=== PATIENT | male | born 1995 | race Caucasian/White ===

== ENCOUNTER → 2017-01-23 | Outpatient (CLI) | payer OTHER ==
--- NOTE | 2017-01-23 08:22 | MR ---
EXAMINATION TYPE: MR knee LT wo con DATE OF EXAM: 01/23/2017 COMPARISON: NONE HISTORY: Left Knee Pain, ACL Tear, MMT TECHNIQUE: Multiplanar, multisequence imaging of the left knee is performed without IV contrast. FINDINGS: MEDIAL MENISCUS: Grade 3 abnormal signal with findings suspicious for bucket-handle tear. LATERAL MENISCUS: Intrasubstance signal posterior horn lateral meniscus suggestive of myxoid degenera tion. CRUCIATE LIGAMENTS: Slight ill-definition of the posterior fibers of the proximal ACL. No through thi ckness tear. COLLATERAL LIGAMENTS: The medial collateral ligament and lateral collateral ligament complex are inta ct and unremarkable. EXTENSOR MECHANISM: Visualized quadriceps and patellar tendons are intact. EFFUSION: No significant suprapatellar joint effusion. POPLITEAL CYST: No popliteal/coats cyst. TRICOMPARTMENT SPACES: Joint spaces preserved. Cartilage intact. There is a small amount of fluid wit hin the suprapatellar bursa. BONE MARROW SIGNAL: No focal abnormal marrow signal is appreciated. OTHER: 1.8 cm area of fluid signal along the posterior margin of the proximal tibial-fibular joint m ay represent an area of fluid accumulation or ganglion cyst. IMPRESSION: 1. Findings compatible with posterior horn medial meniscal tear with findings suggestive of a bucket- handle tear. 2. Findings involving the posterior horn lateral meniscus more typical of myxoid degeneration. 3. ACL strain with findings suspicious for partial tear involving the posterior fibers. No through t hickness tear or complete tear.
== END | disposition home or self-care (01) ==
LOC: RADMRIMAIN 06:03
PROVIDERS: ATTEND Orthopaedic Surgery
DX: S83.282A Other tear of lateral meniscus, current injury, left knee, initial encounter (principal); S83.512A Sprain of anterior cruciate ligament of left knee, initial encounter

== ENCOUNTER → 2017-02-01 | Outpatient (CLI) | payer OTHER ==
[2017-02-01 10:47] LABS: EKG EKG PERFORMED
[2017-02-01 11:12] LABS: Basophils % (A) 0 %; CH 31.6; CHCM 34.6; Eosinophils # (A) 0.1 k/uL (0-0.7); Eosinophils % (A) 2 %; HCT 48.1 % (39.0-53.0); HDW 2.53; HGB 16.8 gm/dL (13.0-17.5); Luc # (Auto) 0.17; Luc % (Auto) 2; Lymphocytes # (A) 1.9 k/uL (1.0-4.8); Lymphocytes % (A) 25 %; MCH 32.2 pg (25.0-35.0); MCV 91.8 fL (80.0-100.0); Mean Platelet Volume 7.3; Monocytes # (A) 0.5 k/uL (0-1.0); Monocytes % (A) 6 %; Neutrophils # (A) 5.1 k/uL (1.3-7.7); Neutrophils % (A) 65 %; RBC 5.24 m/uL (4.30-5.90); RDW 12.2 % (11.5-15.5); WBC 7.8 k/uL (3.8-10.6)
[2017-02-01 11:19] LABS: Anion Gap 9 mmol/L; Blood Urea Nitrogen 22 mg/dL (9-20); Calcium 9.9 mg/dL (8.4-10.2); Carbon Dioxide 24 mmol/L (22-30); Chloride 105 mmol/L (98-107); Glucose 105 mg/dL (74-99); Non-African American GFR(MDRD) >60 (>60 ml/min/1.73 sqM); Potassium 4.3 mmol/L (3.5-5.1); Sodium 138 mmol/L (137-145)
== END | disposition home or self-care (01) ==
LOC: LABWHC1 10:39
PROVIDERS: ATTEND Orthopaedic Surgery
DX: Z01.810 Encounter for preprocedural cardiovascular examination (principal); I49.49 Other premature depolarization; D64.9 Anemia, unspecified; Z01.812 Encounter for preprocedural laboratory examination
CPT/HCPCS: 36415; 80048; 85025; 93005

== ENCOUNTER → 2017-08-22 | Outpatient (CLI) | payer OTHER ==
--- NOTE | 2017-08-22 20:47 | MR ---
EXAMINATION TYPE: MR shoulder RT wo con DATE OF EXAM: 08/22/2017 COMPARISON: Radiographs 10/27/2014 HISTORY: 22-year-old male Cervicalgia/ rt shoulder pain TECHNIQUE: Multiplanar, multisequence imaging of the right shoulder is performed without contrast. FINDINGS: Long head biceps tendon appears intact and appropriately situated along the bicipital. There is some heterogeneous signal involving the subscapularis tendon and suggestion of some partial articular sided tearing of the middle to inferior third fibers. The majority of the subscapularis ten don appears intact. AC joint is intact. The supraspinatus tendon is intact. There is mild intrasubstance change within the posterior infraspinatus tendon fibers characterized by focal increased signal at the footprint, sagittal T2 FS image 22. No atrophy of the rotator cuff musculature. Of note, there is mild muscular edema of the teres minor. No mass lesion seen within the quadrilateral space. There is some linear signal seen undercutting the chondral labral junction of the posterior superior glenoid labrum probably representing a sublabral sulcus. No para labral cyst. No glenohumeral joint effusion. Articular cartilage is maintained. No Hill-Sachs deformity or os acromiale. No suspicious bone marrow replacement. IMPRESSION: 1. Subscapularis tendinosis. There seems to be minimal articular sided fraying of the middle to infer ior third fibers. The majority of the subscapularis tendon remains intact. 2. Some intrasubstance change/tendinosis of the posterior infraspinatus tendon fibers. No high-grade partial or full-thickness rotator cuff tear. 3. Muscular edema involving the teres minor. Findings can be seen in the setting of quadrilateral spa ce syndrome. No significant muscle atrophy. Clinically correlate. 4. Findings suspected to represent a superior posterior sublabral sulcus rather than a SLAP tear. Cor relate with physical exam findings. If concern for labral pathology, MR arthrogram can be performed.
--- NOTE | 2017-08-22 20:53 | MR ---
EXAMINATION TYPE: MR cervical spine wo con DATE OF EXAM: 08/22/2017 COMPARISON: NONE HISTORY: 22-year-old male Cervicalgia/right shoulder pain TECHNIQUE: Multiplanar, multisequence images of the cervical spine were acquired. 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 No predental space widening or prevertebral soft tissue swelling. Preserved alignment of the cervical spine. Minimal posterior disc bulging and C3-C4 and C4-C5 and scattered mild facet degenerative change throu ghout. These changes do not result in any significant spinal canal stenosis. Changes result in minimal left-sided neuroforaminal narrowing at C3-C4 and on the right at C4-C5. Normal course, caliber, and signal intensity of the cervical cord. Prominence to the bilateral palatine tonsils. No prevertebral or paravertebral soft tissue abnormalit y seen. IMPRESSION: 1. 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 2. Very mild posterior disc bulging at C3-C4 and C4-C5. No spinal canal stenosis. 3. Minimal left-sided neural foraminal narrowing at C3-C4 and on the right at C4-C5. No high-grade fo raminal compromise.
== END | disposition home or self-care (01) ==
LOC: RADMRIMAIN 19:37
PROVIDERS: ATTEND Internal Medicine
DX: M75.81 Other shoulder lesions, right shoulder (principal); M50.320 Other cervical disc degeneration, mid-cervical region, unspecified level
CPT/HCPCS: 72141

== ENCOUNTER 2017-11-02 23:11 | Emergency (ER) | payer OTHER ==
[2017-11-02 23:18] VITALS: RESP 16
[2017-11-02] MEDS ORDERED: ORPHENADRINE 30 MG/ML 2 ML VIAL IM STA (23:45)
[2017-11-02] MEDS ORDERED: KETOROLAC 30 MG/ML 1 ML VIAL IM STA (23:45)
--- NOTE | 2017-11-02 23:47 | ED ---
Back Pain HPI - General Chief Complaint: Back Pain/Injury Stated Complaint: neck pain Time Seen by Provider: 11/02/17 23:36 Source: patient Limitations: no limitations - History of Present Illness Initial Comments: 22-year-old male patient with past medical history significant for Chiari malformation and herniated cervical disc presents to the emergency department today for complaints of neck pain and headache. 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 Patient states that the left side of his neck hurts worse than the right. He denies any pain radiation down his arms. He denies any numbness or tingling in his upper extremities. He denies any fevers, chills, blurred vision, or double vision. Denies any nausea or vomiting. Patient denies any recent rash, shortness breath , chest pain, abdominal pain, diarrhea, constipation, back pain, dizziness, weakness, hematuria, dysuria, urinary urgency, urinary frequency, or any other complaints. - Related Data Home Medications Medication Instructions Recorded Confirmed Albuterol Inhaler [Ventolin Hfa 1 - 2 puff INHALATION RT-Q6H PRN 11/02/17 Inhaler] Albuterol Nebulized [Ventolin 2.5 mg INHALATION RT-Q6H PRN 11/02/17 11/02/17 Nebulized] Budesonide/Formoterol Fumarate 2 puff INHALATION RT-BID 11/02/17 11/02/17 [Symbicort 160-4.5 Mcg Inhaler] Cyclobenzaprine [Flexeril] 10 mg PO HS 11/02/17 11/02/17 Diazepam [Valium] 5 mg PO BID PRN 11/02/17 11/02/17 traZODone HCL [Desyrel] 100 mg PO HS 11/02/17 11/02/17 Previous Rx's Medication Instructions Recorded Cyclobenzaprine [Flexeril] 10 mg PO TID #15 tab 11/02/17 Ibuprofen [Motrin] 600 mg PO Q8HR PRN #30 tab 11/02/17 Allergies Allergy/AdvReac Type Severity Reaction Status Date / Time acetaminophen [From [place]] AdvReac Nausea & Verified 11/02/17 23:23 Vomiting hydrocodone bitartrate AdvReac Nausea & Verified 11/02/17 23:23 [From [place]] Vomiting Review of Systems ROS Statement: Those systems with pertinent positive or pertinent negative responses have been documented in the HPI. ROS Other: All systems not noted in ROS Statement are negative. Past Medical History Past Medical History: Asthma History of Any Multi-Drug Resistant Organisms: None Reported Past Surgical History: No Surgical Hx Reported Past Psychological History: No Psychological Hx Reported Smoking Status: Current every day smoker Past Alcohol Use History: None Reported Past Drug Use History: None Reported General Exam Limitations: no limitations General appearance: alert, in no apparent distress, other (This is a well- developed, well-nourished adult male patient in no acute distress. Vital signs upon presentation are temperature 98.2F, pulse 61, respirations 16, blood pressure 136/82, pulse ox 98% on room air.) Eye exam: Present: normal appearance, PERRL, EOMI. Absent: scleral icterus, conjunctival injection, periorbital swelling ENT exam: Present: normal exam, normal oropharynx, mucous membranes moist Neck exam: Present: normal inspection, full ROM. Absent: tenderness, meningismus, lymphadenopathy Respiratory exam: Present: normal lung sounds bilaterally. Absent: respiratory distress, wheezes, rales, rhonchi, stridor Cardiovascular Exam: Present: regular rate, normal rhythm, normal heart sounds. Absent: systolic murmur, diastolic murmur, rubs, gallop, clicks GI/Abdominal exam: Present: soft, normal bowel sounds. Absent: distended, tenderness, guarding, rebound, rigid Neurological exam: Present: alert, oriented X3, CN II-XII intact Psychiatric exam: Present: normal affect, normal mood Skin exam: Present: warm, dry, intact, normal color. Absent: rash Course Vital Signs 11/02/17 11/03/17 23:13 00:19 Temperature 98.2 F 97.3 F L Pulse Rate 61 54 L Respiratory 16 16 Rate Blood Pressure 136/82 143/68 O2 Sat by Pulse 98 98 Oximetry Medical Decision Making - Medical Decision Making 22-year-old male patient presented to the emergency department today for complaints of left-sided neck pain and headache after starting a new job today. Physical examination is unremarkable. Patient good upper extremity strength. There is no midline neck tenderness. No injury to the neck. Patient does have known herniated disc. We'll treat his pain with anti-inflammatories and muscle relaxers. He is instructed to follow-up with his primary care physician for recheck in 1-2 days. Return parameters discussed in detail. He verbalizes understanding and agrees with this plan. Disposition Clinical Impression: Neck pain Disposition: HOME SELF-CARE Condition: Good Instructions: Neck Pain (ED) Additional Instructions: Apply warm moist heat to the neck. Take medications as directed. Follow-up with your primary care physician as well as her neurologist for further evaluation. Return here immediately for any new, worsening, or concerning symptoms. Prescriptions: Cyclobenzaprine [Flexeril] 10 mg PO TID #15 tab Ibuprofen [Motrin] 600 mg PO Q8HR PRN #30 tab PRN Reason: Pain Is patient prescribed a controlled substance at d/c from ED?: No Referrals: Benji Vargas MD [Primary Care Provider] - 1-2 days Time of Disposition: 23:47
[2017-11-03 00:21] VITALS: BP 143/68; PULSE 54; TEMP 97.3
== END 2017-11-03 00:16 | disposition home or self-care (01) ==
LOC: EC 23:11
DX: M50.10 Cervical disc disorder with radiculopathy, unspecified cervical region (principal); R51 Headache; J45.909 Unspecified asthma, uncomplicated; F17.200 Nicotine dependence, unspecified, uncomplicated; Z79.51 Long term (current) use of inhaled steroids; Z79.899 Other long term (current) drug therapy; Z88.5 Allergy status to narcotic agent; Z88.8 Allergy status to other drugs, medicaments and biological substances; X50.0XXA Overexertion from strenuous movement or load, initial encounter
CPT/HCPCS: 99283; 96372 ×2; J2360; J1885

== ENCOUNTER → 2017-12-14 | Outpatient (CLI) | payer OTHER ==
--- NOTE | 2017-12-14 22:14 | MR ---
EXAMINATION TYPE: MR lumbar spine wo con DATE OF EXAM: 12/14/2017 COMPARISON: Lumbar spine x-ray April 19, 2011 HISTORY: Low back pain for 4 years per patient going into left thigh. TECHNIQUE: Multiplanar, multisequence imaging of the lumbar spine is performed without IV contrast. FINDINGS: Sagittal images of the lumbar spine show vertebral body heights and alignment to appear sat isfactory. There is disc desiccation with mild disc space narrowing at L5-S1 level otherwise the inte rvertebral discs demonstrate normal heights and hydration. Posterior disc herniation is seen L5-S1 le olya with increased posterior signal or annular tear. The conus medullaris is normal in position and s ignal. The bone marrow signal intensity is within normal limits. No significant spurring is seen. Axial images show at T12-L1, L1-L2, L2-L3, L3-L4, and L4-L5 levels all to appear within normal limits . Axial images at the L5-S1 level shows broad-based right paracentral disc protrusion mildly effacing t he anterolateral thecal sac. This appears to encroach near the anterior margin of right S1 nerve on a xial image 2 and sagittal images 8 and 9. Bilateral neural foramina are patent. Paraspinal muscle bulk is maintained. No suspicious retroperitoneal findings are seen. IMPRESSION: Disc herniation L5-S1 level encroaching along the anterior margin of central right S1 ner ve.
== END | disposition home or self-care (01) ==
LOC: RADMRIMAIN 21:36
PROVIDERS: ATTEND Psychiatry & Neurology Neurology
DX: M51.27 Other intervertebral disc displacement, lumbosacral region (principal)
CPT/HCPCS: 72148

== ENCOUNTER → 2018-01-19 | Outpatient (CLI) | payer OTHER ==
--- NOTE | 2018-01-19 10:00 | MR ---
EXAMINATION TYPE: MR brain wo/w con DATE OF EXAM: 01/19/2018 COMPARISON: None HISTORY: Compression of Brain TECHNIQUE: Multiplanar, multisequence images of the brain and brainstem is performed without and with IV contras t, utilizing 7.5 mL intravenous Gadavist . FINDINGS: Diffusion weighted images demonstrate no evidence of a recent infarct or other diffusion ab normality. Changes of diffuse sinusitis noted. Ventricular system compatible with the patient's age with no evidence of midline shift or mass effect . The cerebellar tonsils are low-lying in position extending 7 mm below the foramen magnum. Findings molina ggest posterior tonsillar beaking. Correlate for history of Chiari malformation. Post contrast images demonstrate no abnormal enhancement. The dural venous sinuses appear patent. The visualized globes are intact. There is an area of reduced signal on all sequences within the left parietal white matter should be c orrelated with head CT to assess for calcification. Measures approximately 1 cm. No enhancement. IMPRESSION: 1. Chiari malformation with tonsillar beaking. 2. Severe chronic sinusitis. 3. 1 cm area of low signal on all sequences suggestive of an area of calcification within the left pa rietal white matter which could be confirmed with CT of the brain.
== END | disposition home or self-care (01) ==
LOC: RADMRIMAIN 09:13
PROVIDERS: ATTEND Neurological Surgery
DX: G93.5 Compression of brain (principal); R90.89 Other abnormal findings on diagnostic imaging of central nervous system
CPT/HCPCS: 70553; A9581

== ENCOUNTER 2018-03-02 06:00 | Emergency (ER) | payer OTHER ==
[2018-03-02 06:07] VITALS: BP 114/69; PULSE 78; RESP 20
[2018-03-02 06:40] VITALS: TEMP 100
[2018-03-02] MEDS ORDERED: HYDROmorphone 1 MG/ML 1 ML SYRINGE IVP STA (06:41)
--- NOTE | 2018-03-02 06:43 | ED ---
Neck Injury/Pain HPI - General Chief Complaint: Neck Pain/Injury Stated Complaint: neck pain Time Seen by Provider: 03/02/18 06:36 Mode of arrival: ambulatory Limitations: no limitations - History of Present Illness Initial Comments: This patient is 22-year-old man who presents with the goal of obtaining some pain relief for pain related to recent Chiari malformation surgery. The patient states this was performed at [facility]. He states he called the on-call number and they requested that he come down and be seen to reevaluate. The patient states that he is going to go right down there but he was hoping to have some pain relief since it is a long ride there. Surgery was on February 23. He had been doing fairly well until yesterday and the pain started increasing. He tried taking the prescribed oxycodone but states that that's not providing much relief. He is not having any neurologic symptoms. He has noticed low-grade fever this morning. MD Complaint: neck pain -: hour(s) Severity: moderate Quality: aching Consistency: constant Improves With: none Worsens With: none Associated Symptoms: fever - Related Data Home Medications Medication Instructions Recorded Confirmed Albuterol Inhaler [Ventolin Hfa 1 - 2 puff INHALATION RT-Q6H PRN 11/02/17 Inhaler] Albuterol Nebulized [Ventolin 2.5 mg INHALATION RT-Q6H PRN 11/02/17 03/02/18 Nebulized] Budesonide/Formoterol Fumarate 2 puff INHALATION RT-BID 11/02/17 03/02/18 [Symbicort 160-4.5 Mcg Inhaler] Cyclobenzaprine [Flexeril] 10 mg PO HS 11/02/17 03/02/18 Diazepam [Valium] 5 mg PO BID PRN 11/02/17 03/02/18 traZODone HCL [Desyrel] 100 mg PO HS 11/02/17 03/02/18 Previous Rx's Medication Instructions Recorded Cyclobenzaprine [Flexeril] 10 mg PO TID #15 tab 11/02/17 Ibuprofen [Motrin] 600 mg PO Q8HR PRN #30 tab 11/02/17 Allergies Allergy/AdvReac Type Severity Reaction Status Date / Time acetaminophen [From [place]] AdvReac Nausea & Verified 03/02/18 06:07 Vomiting hydrocodone bitartrate AdvReac Nausea & Verified 03/02/18 06:07 [From [place]] Vomiting Review of Systems ROS Statement: Those systems with pertinent positive or pertinent negative responses have been documented in the HPI. ROS Other: All systems not noted in ROS Statement are negative. Constitutional: Reports: fever. Denies: chills ENT: Denies: throat pain Respiratory: Denies: cough, dyspnea Cardiovascular: Denies: chest pain, palpitations Gastrointestinal: Denies: abdominal pain, vomiting Musculoskeletal: Reports: as per HPI Skin: Denies: rash Neurological: Denies: headache Past Medical History Past Medical History: Asthma Additional Past Medical History / Comment(s): chiari malformation History of Any Multi-Drug Resistant Organisms: None Reported Past Surgical History: Orthopedic Surgery Additional Past Surgical History / Comment(s): chiari malformation Past Psychological History: No Psychological Hx Reported Smoking Status: Current every day smoker Past Alcohol Use History: None Reported Past Drug Use History: None Reported General Exam Limitations: no limitations General appearance: alert, in no apparent distress Head exam: Present: atraumatic, normocephalic Eye exam: Present: normal appearance Neck exam: Present: full ROM, other (Inspection of the patient's surgical incision reveals that the sutures are intact. There is no drainage. There is no abnormal erythema or warmth. There does appear to be a small fluid collection possibly small hematoma.). Absent: tenderness, meningismus Course Vital Signs 03/02/18 03/02/18 06:02 06:40 Temperature 99.3 F 100.0 F H Pulse Rate 78 Respiratory 20 Rate Blood Pressure 114/69 O2 Sat by Pulse 98 Oximetry Medical Decision Making - Medical Decision Making Patient is 22-year-old man with postsurgical pain and also found to have low- grade fever here. Discussed that it is mandatory that he follow-up, and the patient states that his his intention to leave here and go directly to [facility] to have reevaluation. Patient was given 1 dose of analgesia and discharged to go directly there. He declined to have transfer arranged, stating that his family is driving him directly there. Disposition Clinical Impression: Post surgical complication Disposition: OTHER INSTITUTION NOT DEFINED Condition: Fair Instructions: Acute Neck Pain (ED) Is patient prescribed a controlled substance at d/c from ED?: No Referrals: Benji Vargas MD [Primary Care Provider] - 1-2 days
== END 2018-03-02 06:55 | disposition other institution (70) ==
LOC: EC 06:00
DX: G97.82 Other postprocedural complications and disorders of nervous system (principal); J45.909 Unspecified asthma, uncomplicated; Z79.51 Long term (current) use of inhaled steroids; Z79.899 Other long term (current) drug therapy; Z88.6 Allergy status to analgesic agent; Z88.5 Allergy status to narcotic agent; Z98.890 Other specified postprocedural states
CPT/HCPCS: 99284; 96374; J1170

== ENCOUNTER → 2018-04-11 | Outpatient (CLI) | payer OTHER ==
--- NOTE | 2018-04-11 22:44 | MR ---
EXAMINATION TYPE: MR brain wo/w con DATE OF EXAM: 04/11/2018 COMPARISON: Prior MRI brain January 19, 2018. HISTORY: CSF Leak, chiari malformation, memory loss, prior MRI on pacs TECHNIQUE: Multiplanar, multisequence images of the brain and brainstem is performed without and with IV contras t, utilizing 7.5 mL intravenous Gadavist . FINDINGS: Diffusion weighted images demonstrate no evidence of a recent infarct or other diffusion ab normality. There is no extra-axial fluid collection or significant white matter signal abnormality. The ventricular system and cisternal spaces are stable in size and appearance perhaps somewhat diffu sely decompressed or small. The brain volume is age appropriate. Area of roughly 1.0 cm low T1 and T 2 signal left parietal periventricular white matter axial image 17 is stable perhaps small area of fo naun encephalomalacia or calcification. Midline structures demonstrate new artifact from posterior decompression but persistent low-lying cer ebellar tonsils measured roughly 7 mm sagittal image 10 below foramen magnum not significant change f rom prior in position. Post contrast images demonstrate no abnormal enhancement. The dural venous sinuses appear patent. Moderate mucosal thickening involving inferior left maxillary sinus remains pr esent. Mild to moderate mucosal thickening involving ethmoid sinuses is again seen. Significant overa ll interval improvement from prior MRI. Globes are intact bilaterally. IMPRESSION: 1. Attempted posterior decompression but persistent inferior descent of cerebellar tonsils despite at tempted surgery. 2. Improving paranasal sinus disease as detailed above.
== END | disposition home or self-care (01) ==
LOC: RADMRIMAIN 21:00
PROVIDERS: ATTEND Neurological Surgery
DX: R83.5 Abnormal microbiological findings in cerebrospinal fluid (principal)
CPT/HCPCS: 70553; A9585

== ENCOUNTER → 2018-12-12 | Outpatient (CLI) | payer OTHER ==
--- NOTE | 2018-12-13 13:48 | MR ---
MRI CERVICAL SPINE and brain: CLINICAL HISTORY: Congenital malformation of nervous system, neck pain and headaches TECHNIQUE: Multiplanar, multisequence imaging of the cervical spine and brain is performed without IV contrast. COMPARISON: Prior MR brain 04/11/2018, MR cervical spine 08/22/2017 FINDINGS: Brain MRI: Exam is stable. There is no restricted diffusion. No hemorrhage or hydrocephalus. Brain si gnal is normal. There are normal vascular flow voids present. Orbits are symmetric. Inflammatory rubio ge present within the ethmoid air cells. Maxillary sinuses also, periosteal thickening. Cerebellopont ine angles, corpus callosum, pituitary are normal. Postop changes at the level of the posterior skull base is noted. There is a change in appearance, the posterior dural surface is not seen, there is ce rebrospinal fluid signal present with a somewhat bulging appearance at the level of the decompression , inferior cerebellar has displaced into this inferior outpouching. The cervical and upper thoracic spinal cord is normal in course, caliber, and signal. Vertebral ali gnment is anatomic. The vertebral body and intravertebral disk heights are normal. The bone marrow signal intensity is within normal limits. Axial images show there is no significant focal disk disease, spinal canal stenosis, neural foraminal narrowing, or spinal cord compromise at any cervical level. IMPRESSION: Negative MRI of the cervical spine, findings in the surgical site as described, there is an interval change in the appearance of the surgical bed.
== END | disposition home or self-care (01) ==
LOC: RADMRIMAIN 16:37
PROVIDERS: ATTEND Neurological Surgery
DX: Q07.9 Congenital malformation of nervous system, unspecified (principal); Z98.890 Other specified postprocedural states
CPT/HCPCS: 70551; 72141

== ENCOUNTER → 2019-02-19 | Outpatient (CLI) | payer OTHER ==
--- NOTE | 2019-02-19 09:40 | CT ---
EXAMINATION TYPE: CT brain wo con DATE OF EXAM: 02/19/2019 COMPARISON: 12/12/2018 MRI brain HISTORY: 23-year-old male pre surgery for Chiari malformation TECHNIQUE: Examination was done in axial plane without intravenous contrast. Coronal and sagittal r econstructions performed. CT DLP: 963.6 mGycm Automated exposure control for dose reduction was used. FINDINGS: There is no evidence of acute intracranial hemorrhage, acute ischemic changes, mass, mass-effect, or extra-axial fluid collection. There is no effacement of cerebral sulci or basal subarachnoid cister ns. There is no hydrocephalus. There is no midline shift. Hopson-white matter distinction is preserv ed. There is evidence of prior suboccipital decompression surgery with inferior aspect of the cerebellar hemispheres filling the bulging dura here, similar to that seen on 12/12/2018. Small and of cerebellar tonsillar herniation particularly on the right measuring 6 mm below the dural sac, similar to prior MRI. Moderate mucosal thickening ethmoid air cells and visualized right maxillary sinus. Mastoid air cells well pneumatized. Orbits and globes are intact. IMPRESSION: 1. Prior suboccipital decompression. Redemonstrated inferior aspect of the cerebral hemispheres exten ding into the bulging pouch and with mild 6 mm of left-sided cerebellar tonsillar ectopia below the l evel of the dural pouch, relatively similar to 12/12/2018. 2. No acute intracranial abnormality seen. 3. Moderate chronic ethmoid sinus disease.
== END | disposition home or self-care (01) ==
LOC: RADCTMAIN 08:18
PROVIDERS: ATTEND Neurological Surgery
DX: G93.89 Other specified disorders of brain (principal)
CPT/HCPCS: 70450

== ENCOUNTER → 2019-06-01 | Outpatient (CLI) | payer OTHER ==
--- NOTE | 2019-06-02 22:35 | CT ---
EXAMINATION TYPE: CT brain wo con DATE OF EXAM: 06/01/2019 COMPARISON: CT brain February 19, 2019. MR brain December 12, 2018 and older MRIs back through January 19, 2018.. HISTORY: pre [employer] shunt placement CT DLP: 945.5 mGycm. Automated Exposure Control for Dose Reduction was Utilized. TECHNIQUE: CT scan of the head is performed without contrast. FINDINGS: Persistent central low occipital craniotomy change with now new CSF isointense fluid extend ing posteriorly measuring 3.8 cm transversely by 4.1 cm AP diameter axial image 5 is noted. Possible pseudomeningocele nearly extending to since skin surface. Interval correction of prior low-lying cere bellar tonsils noted. There is no acute intracranial hemorrhage or midline shift identified. The veda tricles and sulci are stable in size. Ventricular system is somewhat slitlike but unchanged back thro [facility] January 19, 2018 Hopson-white matter differentiation is maintained. The globes are intact bilaterally . Mild to moderate mucosal thickening involving bilateral ethmoid sinuses remains present. IMPRESSION: Interval successful surgery of low-lying cerebellar tonsils from most recent CT. 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 No other significant change from most recent CT.
== END | disposition home or self-care (01) ==
LOC: RADCTMAIN 07:09
PROVIDERS: ATTEND Neurological Surgery
DX: G93.5 Compression of brain (principal); Z98.890 Other specified postprocedural states
CPT/HCPCS: 70450

== ENCOUNTER → 2019-06-17 | Outpatient (CLI) | payer OTHER ==
--- NOTE | 2019-06-17 14:59 | XR ---
EXAMINATION TYPE: XR chest 2V DATE OF EXAM: 06/17/2019 COMPARISON: NONE HISTORY: Ventriculoperitoneal shunt malfunction. TECHNIQUE: Frontal and lateral views of the chest are obtained. FINDINGS: Ventriculoperitoneal shunt courses along the anterior chest and abdominal wall subcutaneou s tissues into the abdominal cavity. There is no discontinuity nor calcifications seen. There is no f ocal air space opacity, pleural effusion, or pneumothorax seen. The cardiac silhouette size is withi n normal limits. The osseous structures are intact. IMPRESSION: No acute cardiopulmonary process. No discontinuity no calcifications along the visualize d portions of the ventriculoperitoneal shunt.
--- NOTE | 2019-06-17 15:00 | XR ---
EXAMINATION TYPE: XR abdomen 2V DATE OF EXAM: 06/17/2019 2:43 PM CLINICAL HISTORY: Ventriculoperitoneal shunt malfunction. TECHNIQUE: Single supine KUB image of the abdomen is obtained. COMPARISON: None. FINDINGS: No dilated large or small bowel. Ventriculoperitoneal shunt is seen along the midline and r ight paracentral abdomen coiling in the midline pelvis. No discontinuity or calcifications are seen. Lung bases are well aerated. Osseous structures are intact. IMPRESSION: Ventriculoperitoneal shunt and unremarkable coiling within the pelvis without discontinui ty or calcifications.
--- NOTE | 2019-06-17 15:52 | XR ---
EXAMINATION TYPE: XR skull limited DATE OF EXAM: 06/17/2019 COMPARISON: CT brain dated 06/01/2019 HISTORY: Recent ventriculoperitoneal shunt placement. TECHNIQUE: Frontal and lateral views of the skull were obtained FINDINGS: There is a right parietal approach ventriculoperitoneal shunt that has been placed in the i [facility] from the prior CT of 06/01/2019. There is a radiolucent reservoir. Connector tubing appears un remarkable. No constantin discontinuity or calcifications. Osseous structures are grossly intact with muco elke thickening of the right nasal turbinates incidentally seen. IMPRESSION: No gross discontinuity or calcifications along the course of the right ventriculoperitone al shunt from a parietal approach.
== END | disposition home or self-care (01) ==
LOC: RADXRMAIN 14:09
PROVIDERS: ATTEND Neurological Surgery
DX: G91.9 Hydrocephalus, unspecified (principal); G93.5 Compression of brain; Z98.2 Presence of cerebrospinal fluid drainage device
CPT/HCPCS: 70250; 71046; 74019

== ENCOUNTER → 2020-04-18 | Outpatient (CLI) | payer OTHER ==
--- NOTE | 2020-04-18 09:47 | XR ---
EXAMINATION TYPE: XR hand limited RT DATE OF EXAM: 04/18/2020 CLINICAL HISTORY: Fight injury with pain. TECHNIQUE: Frontal and lateral images of the right hand are obtained. COMPARISON: None. FINDINGS: There is no acute fracture/dislocation evident in the right hand with particular attention to third through fifth fingers at area of clinical concern. The joint spaces in the right hand appea r within normal limits. The overlying soft tissue appears unremarkable. IMPRESSION: There is no acute fracture or dislocation in the right hand.
== END | disposition home or self-care (01) ==
LOC: RADXRMAIN 09:30
PROVIDERS: ATTEND Internal Medicine
DX: M79.641 Pain in right hand (principal)

== ENCOUNTER → 2020-06-02 | Outpatient (CLI) | payer OTHER ==
--- NOTE | 2020-06-02 08:44 | CT ---
EXAMINATION TYPE: CT brain wo con DATE OF EXAM: 06/02/2020 COMPARISON: CT brain June 01, [address] MRI brain December 12, 2018 and older MRIs through 2 018 HISTORY: hydrocephalus, GOMEZ, dizziness, memory loss CT DLP: 945.5 mGycm. Automated Exposure Control for Dose Reduction was Utilized. TECHNIQUE: CT scan of the head is performed without contrast. FINDINGS: Persistent low occipital craniectomy with resolution of the CSF posteriorly extending into the scalp. Fhzz-as-obfvnihb mucosal thickening involving ethmoid sinuses and superior aspect maxillar y sinuses bilaterally remains present. Globes are intact bilaterally. No acute intracranial hemorrhage or midline shift. Hopson-white matter differentiation is maintained. N o right foraminal toby hole and GAS FURNACE INSTALLER shunt catheter terminating near the level of foramen of French. Ve ntricular size is stable from most recent CT. IMPRESSION: New right frontal GAS FURNACE INSTALLER shunt catheter. Ventricular size stable from most recent CT and olde r studies. Interval resolution or successful interval treatment of posterior lower pseudomeningocele.
--- NOTE | 2020-06-02 11:05 | XR ---
EXAMINATION TYPE: XR chest 2V DATE OF EXAM: 06/02/2020 COMPARISON: 06/17/2019 INDICATION: Shunt series history of Chiari malformation TECHNIQUE: Frontal and lateral views of the chest are obtained. FINDINGS: The heart size is normal. The pulmonary vasculature is normal. The lungs are clear. Catheter overlies the mid chest entering from the right and extends out of the [id number] within t he abdomen. IMPRESSION: 1. No acute pulmonary process. 2. Intact catheter transversing the [id number].
--- NOTE | 2020-06-02 11:06 | XR ---
EXAMINATION TYPE: XR skull limited DATE OF EXAM: 06/02/2020 COMPARISON: 06/17/2019 HISTORY: Shunt survey TECHNIQUE: Skull is examined in 2 views FINDINGS: There is a shunt catheter on the right. The visualized connections appear intact. This exte nds out of the [id number] in the right neck IMPRESSION: 1. Shunt catheter as visualized appears intact
--- NOTE | 2020-06-02 11:08 | XR ---
EXAMINATION TYPE: XR abdomen 2V DATE OF EXAM: 06/02/2020 COMPARISON: 06/17/2019 INDICATION: Shunt survey TECHNIQUE: Abdomen is examined in the supine and upright views. FINDINGS: There is a normal bowel gas pattern. Psoas margins are normal. No organomegaly is present. Shunt catheter enters on the right and has its tip in the mid pelvis. This is changing in position fr om the comparison. No suspicious mass effect is evident. IMPRESSION: 1. Unremarkable Abdomen 2. Shunt catheter entering superiorly with the tip within the pelvis appears normal.
== END | disposition home or self-care (01) ==
LOC: RADCTMAIN 08:11
PROVIDERS: ATTEND Neurological Surgery
DX: G96.198 Other disorders of meninges, not elsewhere classified (principal); G93.5 Compression of brain; G91.9 Hydrocephalus, unspecified; Z98.2 Presence of cerebrospinal fluid drainage device
CPT/HCPCS: 70250; 70450; 71046; 74019

== ENCOUNTER → 2021-01-05 | Outpatient (CLI) | payer OTHER ==
[2021-01-05 19:25] LABS: HCT 48.5 % (39.6-50.0); HGB 16.1 g/dL (13.0-17.0); MCH 31.5 pg (27.0-32.0); MCHC 33.2 g/dL (32.0-37.0); MCV 94.9 fL (80.0-97.0); Mean Platelet Volume 10.9 fL (9.5-12.2); Platelet Count 252 X 10*3/uL (140-440); RBC 5.11 X 10*6/uL (4.40-5.60); RDW 12.5 % (11.5-14.5); WBC 9.22 X 10*3/uL (4.50-10.00)
[2021-01-06 01:20] LABS: Albumin 4.6 g/dL (3.80-4.90); Albumin/Globulin Ratio 1.84 (1.60-3.17); Anion Gap 11.3 mmol/L (4.00-12.00); Calcium 9.8 mg/dL (8.7-10.3); Carbon Dioxide 19.7 mmol/L (21.6-31.8); Globulin 2.5 g/dL (1.6-3.3); Non-African American GFR(CKD) 102.7 (60.0-200.0); Total Bilirubin 0.4 mg/dL (0.3-1.2); Total Protein 7.1 g/dL (6.2-8.2)
[2021-01-06 01:28] LABS: T4, Free (Free Thyroxine) 1.1 ng/dL (0.80-1.80)
[2021-01-06 16:31] LABS: Hemoglobin A1C 4.9 % (4.0-6.0); Hepatitis B Core IgM Non-Reactive (Non-Reactive); Hepatitis B Surface Antigen Non-Reactive (Non-Reactive); Hepatitis C IgG Antibody Non-Reactive (Non-Reactive)
[2021-01-07 18:10] LABS: Hepatitis A Antibody IgM Non-Reactive (Non-Reactive)
== END | disposition home or self-care (01) ==
LOC: LABWHC1 12:33
PROVIDERS: ATTEND Internal Medicine
DX: G91.9 Hydrocephalus, unspecified (principal); R42 Dizziness and giddiness; R21 Rash and other nonspecific skin eruption; R94.5 Abnormal results of liver function studies; R73.9 Hyperglycemia, unspecified
CPT/HCPCS: 36415; 80053; 80074; 82607; 83036; 84439; 84443; 85027

== ENCOUNTER → 2021-01-13 | Outpatient (CLI) | payer OTHER ==
--- NOTE | 2021-01-13 08:51 | MR ---
EXAMINATION TYPE: MR brain wo con DATE OF EXAM: 01/13/2021 COMPARISON: CT 06/02/2020 HISTORY: 25-year-old male G91.9, hydrocephalus, memory loss, hx of shunt TECHNIQUE: Multiplanar, multisequence images of the brain and brainstem were acquired without IV con trast. Diffusion weighted imaging is performed. FINDINGS: There are prominent artifacts affecting portion of the right cerebral hemisphere from patient's indwe lling shunt. As right frontal approach and terminates at the midline between the frontal horns of the lateral ventricles, unchanged from the CT of 06/02/2020. The flattened appearance to the lateral ventricles, right more so than left is relatively similar to the prior CT as well. No evidence for acute infarction, hemorrhage, mass, mass effect, midline shift, herniation, effacemen t of basal cisterns, or extra-axial fluid collection. The sulci are age-appropriate. Major intracranial flow voids are intact. T2/FLAIR weighted sequences show no white matter signal abnormality along the portions that could be evaluated. Midline structures demonstrate normal morphology. The cranial cervical junction shows evidence of desmond or Chiari decompression surgery. Moderate to severe mucosal thickening ethmoid air cells and floors of the maxillary sinuses with muco elke retention cyst measuring up to 1.6 cm on the left. Globes are intact. IMPRESSION: 1. Prominent shunt artifacts limiting assessment of some of the right cerebral hemisphere. Stable pos itioning of the right frontal INFRASTRUCTURE ADMINISTRATOR shunt catheter, tip at the midline between the frontal horns of the ventricles. 2. Flattened appearance to the lateral ventricles, right more so than left, similar to the 06/02/2020 CT. Clinical correlation can be made to exclude over shunting. 3. No acute intracranial abnormality seen. 4. Evidence of previous Chiari decompression surgery. 5. Moderate chronic ethmoid and maxillary sinus disease.
== END | disposition home or self-care (01) ==
LOC: RADMRIMAIN 07:05
PROVIDERS: ATTEND Neurological Surgery
DX: G91.9 Hydrocephalus, unspecified (principal); J32.0 Chronic maxillary sinusitis; Z98.2 Presence of cerebrospinal fluid drainage device
CPT/HCPCS: 70551

== ENCOUNTER → 2021-06-09 | Outpatient (CLI) | payer OTHER ==
[2021-06-09 22:50] LABS: Basophils # (A) 0.07 X 10*3/uL (0.00-0.10); Basophils % (A) 0.9 %; Eosinophils # (A) 0.64 X 10*3/uL (0.04-0.35); Eosinophils % (A) 8.6 %; HCT 48.6 % (39.6-50.0); Lymphocytes # (A) 2.08 X 10*3/uL (0.90-5.00); Lymphocytes % (A) 27.8 %; MCH 31.1 pg (27.0-32.0); MCHC 32.9 g/dL (32.0-37.0); MCV 94.4 fL (80.0-97.0); Mean Platelet Volume 10.7 fL (9.5-12.2); Monocytes # (A) 0.66 X 10*3/uL (0.20-1.00); Monocytes % (A) 8.8 %; Neutrophils # (A) 4.01 X 10*3/uL (1.80-7.70); Neutrophils % (A) 53.8 %; Platelet Count 274 X 10*3/uL (140-440); RBC 5.15 X 10*6/uL (4.40-5.60); WBC 7.47 X 10*3/uL (4.50-10.00)
[2021-06-10 01:07] LABS: African American GFR (CKD) 123.5 (60.0-200.0); Albumin 4.7 g/dL (3.8-4.9); Albumin/Globulin Ratio 2.11 (1.60-3.17); Anion Gap 13.3 mmol/L (10.00-18.00); BUN/Creat Ratio 15.57 Ratio (12.00-20.00); Blood Urea Nitrogen 15.1 mg/dL (9.0-27.0); Calcium 10.1 mg/dL (8.7-10.3); Carbon Dioxide 23.4 mmol/L (20.0-27.5); Globulin 2.2 g/dL (1.6-3.3); Non-African American GFR(CKD) 106.5 (60.0-200.0); Potassium 4.1 mmol/L (3.5-5.5); Total Bilirubin 0.3 mg/dL (0.30-1.20)
[2021-06-10 08:46] LABS: Levetiracetam (Keppra) 12.3 ug/mL (3.0-60.0)
== END | disposition home or self-care (01) ==
LOC: LABWHC1 07:33
PROVIDERS: ATTEND Internal Medicine
DX: G40.009 Localization-related (focal) (partial) idiopathic epilepsy and epileptic syndromes with seizures of localized onset, not intractable, without status epilepticus (principal)
CPT/HCPCS: 36415; 80053; 80177; 80235; 85025

== ENCOUNTER 2021-07-02 12:45 | Emergency (ER) | payer OTHER ==
[2021-07-02 12:55] VITALS: BP 116/77; PULSE 60; RESP 18; TEMP 97.8
--- NOTE | 2021-07-02 15:33 | ED ---
Head Injury HPI - General Chief complaint: Head Injury Stated complaint: [facility] - head injury, shunt Time Seen by Provider: 07/02/21 12:59 Source: patient, RN notes reviewed Mode of arrival: ambulatory Limitations: no limitations - History of Present Illness Initial comments: Patient is a 25-year-old male that presents to the emergency department complaining of head injury. He notes he was at work when a machine him in the head. He notes he does have a history of a HELICOPTER PILOT shunt. He notes that the machine hit him with a HELICOPTER PILOT shunt is at. Patient notes that it is more swollen than usual. Patient was otherwise well-appearing denying any aches or pains. He denied any loss consciousness nausea or vomiting. He denied chest pain shortness of breath headache diarrhea constipation fever fatigue chills. - Related Data Home Medications Medication Instructions Recorded Confirmed Albuterol Nebulized [Ventolin 2.5 mg INHALATION RT-Q6H PRN 11/02/17 01/21/21 Nebulized] Albuterol Sulfate [Proair Hfa] 1 - 2 puff INHALATION Q6HR PRN 01/21/21 01/21/21 Escitalopram [Lexapro] 20 mg PO DAILY 01/21/21 01/21/21 Meclizine [Antivert] 12.5 mg PO BID PRN 01/21/21 01/21/21 Metoclopramide [Reglan] 10 mg PO TID 01/21/21 01/21/21 atenoloL [Tenormin] 25 mg PO DAILY 01/21/21 01/21/21 levETIRAcetam [Keppra] 500 mg PO Q12HR 01/25/21 01/25/21 Previous Rx's Medication Instructions Recorded Ibuprofen [Motrin] 600 mg PO Q8HR PRN #30 tab 11/02/17 Allergies/Adverse reactions: Allergies Allergy/AdvReac Type Severity Reaction Status Date / Time methocarbamol [From Robaxin] Allergy Red Verified 07/02/21 12:54 Syndrome Review of Systems ROS Statement: Those systems with pertinent positive or pertinent negative responses have been documented in the HPI. ROS Other: All systems not noted in ROS Statement are negative. Past Medical History Past Medical History: Asthma, Hyperlipidemia, Seizure Disorder Additional Past Medical History / Comment(s): chiari malformation, HELICOPTER PILOT shunt, History of Any Multi-Drug Resistant Organisms: MRSA Date of last positivie culture/infection: 07/29/19 MDRO Source:: MRSA HEAD Past Surgical History: Orthopedic Surgery Additional Past Surgical History / Comment(s): chiari malformation Past Psychological History: No Psychological Hx Reported Smoking Status: Current every day smoker Past Alcohol Use History: Occasional Past Drug Use History: None Reported General Exam Limitations: no limitations General appearance: alert, in no apparent distress Head exam: Present: normocephalic, normal inspection. Absent: atraumatic (Hematoma to the right lateral aspect of the head.) Eye exam: Present: normal appearance, PERRL, EOMI. Absent: scleral icterus, conjunctival injection, periorbital swelling ENT exam: Present: normal exam, mucous membranes moist Neck exam: Present: normal inspection Respiratory exam: Present: normal lung sounds bilaterally. Absent: respiratory distress, wheezes, rales, rhonchi, stridor Cardiovascular Exam: Present: regular rate, normal rhythm, normal heart sounds. Absent: systolic murmur, diastolic murmur, rubs, gallop, clicks Extremities exam: Present: normal inspection, full ROM, normal capillary refill. Absent: tenderness, pedal edema, joint swelling, calf tenderness Neurological exam: Present: alert, oriented X3 Psychiatric exam: Present: normal affect, normal mood Skin exam: Present: warm, dry, intact, normal color. Absent: rash Course Vital Signs 07/02/21 12:52 Temperature 97.8 F Pulse Rate 60 Respiratory 18 Rate Blood Pressure 116/77 O2 Sat by Pulse 98 Oximetry Medical Decision Making - Medical Decision Making 25-year-old male with a history of HELICOPTER PILOT shunt again and had a workup here for evaluation. CT of the brain ordered. Patient states he had a leave the ER to bulk picker his daughter due to an issue at school. Patient left AMA. Case discussed Dr. Renae Disposition Clinical Impression: Hematoma of scalp, Closed head injury Disposition: Left Against Medical Advice Condition: Stable Is patient prescribed a controlled substance at d/c from ED?: No Referrals: Benji Vargas MD [Primary Care Provider] - 1-2 days Time of Disposition: 15:32
== END 2021-07-02 14:15 | disposition left against medical advice (07) ==
LOC: EC 12:45
DX: S00.03XA Contusion of scalp, initial encounter (principal); J45.909 Unspecified asthma, uncomplicated; E78.5 Hyperlipidemia, unspecified; G40.909 Epilepsy, unspecified, not intractable, without status epilepticus; F17.200 Nicotine dependence, unspecified, uncomplicated; Z72.89 Other problems related to lifestyle; Z79.51 Long term (current) use of inhaled steroids
CPT/HCPCS: 99283

== ENCOUNTER → 2021-08-07 | Outpatient (CLI) | payer OTHER ==
[2021-08-07 16:49] LABS: African American GFR (CKD) 118.2 (60.0-200.0); Anion Gap 10.8 mmol/L (10.00-18.00); Blood Urea Nitrogen 10.8 mg/dL (9.0-27.0); Carbon Dioxide 24.2 mmol/L (20.0-27.5)
[2021-08-07 16:56] LABS: Basophils # (A) 0.05 X 10*3/uL (0.00-0.10); Basophils % (A) 0.8 %; Eosinophils # (A) 0.52 X 10*3/uL (0.04-0.35); Eosinophils % (A) 8.4 %; HCT 47.7 % (39.6-50.0); HGB 15.9 g/dL (13.0-17.0); Immature Grans, Automated 0.2 %; Lymphocytes # (A) 2.12 X 10*3/uL (0.90-5.00); Lymphocytes % (A) 34.1 %; MCH 30.6 pg (27.0-32.0); MCHC 33.3 g/dL (32.0-37.0); MCV 91.9 fL (80.0-97.0); Mean Platelet Volume 10.4 fL (9.5-12.2); Monocytes % (A) 8.1 %; NRBC Per 100 WBC 0 /100 WBCS (0.0-0.0); Neutrophils # (A) 3.01 X 10*3/uL (1.80-7.70); Neutrophils % (A) 48.4 %; Platelet Count 259 X 10*3/uL (140-440); RBC 5.19 X 10*6/uL (4.40-5.60); RDW 12.2 % (11.5-14.5); WBC 6.21 X 10*3/uL (4.50-10.00)
[2021-08-09 07:52] LABS: Levetiracetam (Keppra) 18.3 ug/mL (3.0-60.0)
== END | disposition home or self-care (01) ==
LOC: LABWHC1 11:12
PROVIDERS: ATTEND Internal Medicine
DX: Z51.81 Encounter for therapeutic drug level monitoring (principal)
CPT/HCPCS: 36415; 80051; 80177; 80183; 82565; 84520; 85025

== ENCOUNTER → 2021-09-10 | Outpatient (CLI) | payer OTHER ==
--- NOTE | 2021-09-10 09:48 | XR ---
EXAMINATION TYPE: XR chest 2V, XR abdomen 2V, XR skull limited DATE OF EXAM: 09/10/2021 COMPARISON: Prior shuntogram series June 02, 2020 HISTORY: Hydrocephalus. TECHNIQUE: Frontal and lateral views of the chest are obtained. Two-view skull. Supine and upright v iews of the abdomen. FINDINGS: 2 view skull redemonstrate right sided COMPONENT DESIGN ENGINEER shunt catheter contiguous and courses along the right neck. Lungs remain clear. Right-sided shunt catheter extends contiguously along the anterior abdominal wall more towards the midline. Cardiac silhouette size stable and within normal limits. Osseous structure s are intact. Abdominal x-ray shows shunt catheter terminating in a slightly coiled in the pelvis. Tip position is changed from prior. Catheter is contiguous. Overall nonobstructive bowel gas pattern. Osseous structu res are intact. IMPRESSION: Contiguous COMPONENT DESIGN ENGINEER shunt catheter redemonstrated.
== END | disposition home or self-care (01) ==
LOC: RADXRMAIN 08:57
PROVIDERS: ATTEND Neurological Surgery
DX: G91.9 Hydrocephalus, unspecified (principal); Z98.2 Presence of cerebrospinal fluid drainage device
CPT/HCPCS: 70250; 71046; 74019

== ENCOUNTER → 2021-09-14 | Outpatient (CLI) | payer OTHER ==
--- NOTE | 2021-09-15 06:14 | MR ---
EXAMINATION TYPE: MR brain wo con DATE OF EXAM: 09/14/2021 COMPARISON: MRI brain January 13, 2021. CT brain June 02, 2020. HISTORY: Pain, seizures, Chiari malformation, packer fuser shunt TECHNIQUE: Multiplanar, multisequence imaging of the brain and brainstem is performed without IV cont rast. FINDINGS: Images degraded by artifact from right-sided LENS EDGER shunt catheter. Artifact from catheter tip is noted terminating near level of the foramen of French unchanged in position from prior MRI and CT . Diffusion weighted images demonstrate no evidence of a recent infarct or other diffusion abnormality. There is no extraaxial fluid collection or significant white matter signal abnormality. The ventricu lar system and cisternal spaces remain stable in size and appearance. Somewhat small caliber ventricu lar system is unchanged from prior CT and MRI. Fourth ventricle caliber is stable and satisfactory. Midline structures redemonstrate normal morphology. Artifact from lower occipital craniectomy redemon strated. The craniocervical junction remains within normal limits after surgical correction. Normal vascular flow voids are redemonstrated. Mild mucosal thickening in ethmoid and maxillary sinuses bila terally is improved from prior MRI. Stable small mucous retention cysts or polyps in the inferior lef t maxillary sinus. IMPRESSION: Stable appearance of ventricular system with known right-sided LENS EDGER shunt catheter. Correla te clinically to exclude over shunting. Improved paranasal sinus disease noted otherwise no significa nt change from prior MRI.
== END | disposition home or self-care (01) ==
LOC: RADMRIMAIN 15:58
PROVIDERS: ATTEND Neurological Surgery
DX: J34.89 Other specified disorders of nose and nasal sinuses (principal); Z98.2 Presence of cerebrospinal fluid drainage device
CPT/HCPCS: 70551

== ENCOUNTER 2021-09-26 08:32 | Emergency (ER) | payer OTHER ==
[2021-09-26 08:46] VITALS: RESP 18; TEMP 97.2
[2021-09-26] MEDS ORDERED: levETIRAcetam IV 1,000 MG in SALINE 1 100ML.BAG IVPB STA (08:51)
[2021-09-26] MEDS ORDERED: DIVALPROEX ER 500 MG TAB.ER.24H PO STA (09:00)
[2021-09-26 09:24] LABS: Basophils % (A) 1 %; Eosinophils # (A) 0.5 k/uL (0-0.7); Eosinophils % (A) 7 %; HCT 48.3 % (39.0-53.0); HGB 16.6 gm/dL (13.0-17.5); Lymphocytes # (A) 1.5 k/uL (1.0-4.8); Lymphocytes % (A) 24 %; MCH 32.7 pg (25.0-35.0); MCHC 34.4 g/dL (31.0-37.0); MCV 95.2 fL (80.0-100.0); Mean Platelet Volume 7.5; Monocytes # (A) 0.3 k/uL (0-1.0); Monocytes % (A) 5 %; Neutrophils # (A) 3.9 k/uL (1.3-7.7); Neutrophils % (A) 61 %; Platelet Count 253 k/uL (150-450); RBC 5.07 m/uL (4.30-5.90); RDW 12.7 % (11.5-15.5); WBC 6.3 k/uL (3.8-10.6)
[2021-09-26 09:37] LABS: ALT 24 U/L (4-49); AST 24 U/L (17-59); African American GFR (CKD) >90 (>60 ml/min/1.73 sqM); Albumin 4.2 g/dL (3.5-5.0); Alcohol <10 mg/dL; Alkaline Phosphatase 73 U/L (38-126); Anion Gap 8 mmol/L; Blood Urea Nitrogen 11 mg/dL (9-20); Calcium 9.3 mg/dL (8.4-10.2); Carbon Dioxide 23 mmol/L (22-30); Chloride 110 mmol/L (98-107); Glucose 115 mg/dL (74-99); Magnesium 1.8 mg/dL (1.6-2.3); Non-African American GFR(CKD) >90 (>60 ml/min/1.73 sqM); Potassium 4.2 mmol/L (3.5-5.1); Sodium 141 mmol/L (137-145); Total Bilirubin 0.3 mg/dL (0.2-1.3); Total Protein 6.9 g/dL (6.3-8.2)
[2021-09-26 09:39] LABS: Glucose,Whole Blood 95 mg/dL (75-99)
[2021-09-26 09:42] LABS: Valproic Acid (Depakene) 16.1 ug/mL
--- NOTE | 2021-09-26 09:53 | CT ---
EXAMINATION TYPE: CT brain wo con, CT facial bones wo con DATE OF EXAM: 09/26/2021 COMPARISON: CT brain June 02, 2020 HISTORY: Fall, seizure, abrasion right forehead CT DLP: 1288.4 (accession [id number]), Included in brain (accession [id number]) [facility]. Automated Exposur e Control for Dose Reduction was Utilized. TECHNIQUE: CT scan of the head and facial bones are performed without contrast. FINDINGS: Stable right frontal toby hole with BRICK VENEER MAKER shunt catheter terminating right frontal horn level. There is no acute intracranial hemorrhage or shift identified. Persistent small caliber ventricles. The fabian-white matter differentiation is maintained . Lower occipital craniectomy defect redemonstrat ed. The mandible is intact. Temporomandibular joints are maintained bilaterally. Nasal bones are intact. Zygomatic arches are intact. Orbital floors and colby are intact. The globes are intact bilaterally. Coronal fat is preserved. The pterygoid plates are intact. Mild to moderate mucosal thickening with few small scattered mucous retention cysts and/or polyps thr oughout the bilateral maxillary sinuses are incidentally noted. There is some streak artifact from ca vitary fillings in the bilateral maxillary and mandibular teeth. Note is made of lucency consistent w ith recurrent cavity adjacent to lateral aspect of the crown in the lateralmost left maxillary and ma ndibular teeth coronal image 37 and 38 respectively along with larger cavity or crown approaching the nerve root in the right lateral maxillary tooth coronal image 38. Dental follow-up advised. IMPRESSION: 1. No acute intracranial hemorrhage or midline shift is seen. Stable small sized ventricles may be pr oduct of over shunting. Correlate clinically. 2. No acute displaced facial bone fracture. Incidental Recurrent dental cavities suspected. Correlate clinically.
--- NOTE | 2021-09-26 09:57 | XR ---
EXAMINATION TYPE: XR chest 2V, XR abdomen 1V DATE OF EXAM: 09/26/2021 COMPARISON: Chest x-ray September 10, 2021 HISTORY: Weakness. Fall injury. TECHNIQUE: Frontal and lateral views of the chest are obtained. 2 upright frontal views of the abdom en and pelvis. FINDINGS: Lungs remain clear. The cardiac silhouette size remains within normal limits. The osseo us structures are intact. Right-sided shunt catheter on frontal view less well seen on lateral view t o accurately place. It is contiguous to the diaphragm in the midline. Abdominal x-ray shows continuous shunt catheter into the pelvis. Overall scattered nondistended small and large bowel loops with air-fluid levels is nonspecific favored nonobstructive. No free air. Osse ous structures are intact. IMPRESSION: No acute process. Contiguous shunt catheter noted in the chest abdomen and pelvis.
--- NOTE | 2021-09-26 10:00 | CT ---
EXAMINATION TYPE: CT lumbar spine wo con DATE OF EXAM: 09/26/2021 9:36 AM COMPARISON: None. HISTORY: Fall injury with back pain CT DLP: 738.4 mGycm Automated exposure control for dose reduction was used. Unenhanced CT of the lumbar spine was performed. Bone and soft tissue window settings are submitted as well as coronal and sagittal reconstructions. There are 5 lumbar-type vertebra. Lumbar spine shows satisfactory alignment without evidence of acute fracture or dislocation. Vertebral body heights and disc space heights are maintained. Axial images show central disc protrusion at L5-S1 level but spinal canal is preserved as there is in creased epidural fat. Mild facet arthropathy bilaterally. Patent bilateral neural foramina. Paraspinal muscle bulk is maintained. Incidental normal-appearing appendix right lower quadrant. FABRIC PATTERN GRADER s noyola catheter noted on the localizer. IMPRESSION: No acute fracture or dislocation in the lumbar spine.
[2021-09-26] MEDS ORDERED: DIVALPROEX 250 MG TABLET.DR PO STA (10:16)
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
[2021-09-26 10:53] VITALS: BP 110/88; PULSE 70
== END 2021-09-26 10:52 | disposition home or self-care (01) ==
LOC: EC 08:32
DX: S00.93XA Contusion of unspecified part of head, initial encounter (principal); R56.9 Unspecified convulsions; Z88.9 Allergy status to unspecified drugs, medicaments and biological substances; J45.909 Unspecified asthma, uncomplicated; F17.200 Nicotine dependence, unspecified, uncomplicated; W19.XXXA Unspecified fall, initial encounter
CPT/HCPCS: 36415; 93005; 80164; 80053; 83735; 85025; 71046; 74018; 72131; 70486; 70450; 99285; G0480; J1953; 80320

== ENCOUNTER → 2021-12-03 | Outpatient (CLI) | payer OTHER ==
[2021-12-03 10:45] LABS: Basophils # (A) 0.05 X 10*3/uL (0.00-0.10); Basophils % (A) 0.8 %; Eosinophils % (A) 7.6 %; HCT 45.6 % (39.6-50.0); HGB 15.8 g/dL (13.0-17.0); Immature Grans, Automated 0.2 %; Lymphocytes # (A) 2.42 X 10*3/uL (0.90-5.00); Lymphocytes % (A) 36.6 %; MCH 31.1 pg (27.0-32.0); MCHC 34.6 g/dL (32.0-37.0); MCV 89.8 fL (80.0-97.0); Mean Platelet Volume 10.9 fL (9.5-12.2); Monocytes # (A) 0.57 X 10*3/uL (0.20-1.00); Monocytes % (A) 8.6 %; NRBC Per 100 WBC 0 /100 WBCS (0.0-0.0); Neutrophils # (A) 3.06 X 10*3/uL (1.80-7.70); Neutrophils % (A) 46.2 %; Platelet Count 249 X 10*3/uL (140-440); RBC 5.08 X 10*6/uL (4.40-5.60); RDW 11.6 % (11.5-14.5); WBC 6.61 X 10*3/uL (4.50-10.00)
[2021-12-03 10:59] LABS: African American GFR (CKD) 134.2 (60.0-200.0); Albumin 4.6 g/dL (3.8-4.9); Albumin/Globulin Ratio 2.19 (1.60-3.17); Anion Gap 11.6 mmol/L (10.00-18.00); BUN/Creat Ratio 16.22 Ratio (12.00-20.00); Blood Urea Nitrogen 14.6 mg/dL (9.0-27.0); Calcium 9.5 mg/dL (8.7-10.3); Carbon Dioxide 22.4 mmol/L (20.0-27.5); Globulin 2.1 g/dL (1.6-3.3); Non-African American GFR(CKD) 115.8 (60.0-200.0); Potassium 3.9 mmol/L (3.5-5.5); Total Bilirubin 0.6 mg/dL (0.30-1.20); Total Protein 6.7 g/dL (6.2-8.2)
== END | disposition home or self-care (01) ==
LOC: LABWHC1 07:05
PROVIDERS: ATTEND Internal Medicine
DX: G40.009 Localization-related (focal) (partial) idiopathic epilepsy and epileptic syndromes with seizures of localized onset, not intractable, without status epilepticus (principal)
CPT/HCPCS: 36415; 80053; 80164; 80177; 85025

== ENCOUNTER 2022-01-24 21:09 | Emergency (ER) | payer OTHER ==
[2022-01-24 21:18] VITALS: BP 146/101; PULSE 67; RESP 18; TEMP 97.8
[2022-01-24] MEDS ORDERED: SODIUM CHLORIDE 0.9% 500 ML 500 ML IV STA (21:33)
[2022-01-24] MEDS ORDERED: LORazepam 2 MG/ML INJ IV STA (21:33)
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
[2022-01-24 22:19] LABS: ALT 30 U/L (4-49); AST 45 U/L (17-59); Acetaminophen <10.0 ug/mL; African American GFR (CKD) >90 (>60 ml/min/1.73 sqM); Albumin 4.5 g/dL (3.5-5.0); Alcohol <10 mg/dL; Alkaline Phosphatase 67 U/L (38-126); Anion Gap 11 mmol/L; Blood Urea Nitrogen 12 mg/dL (9-20); Calcium 9.7 mg/dL (8.4-10.2); Carbon Dioxide 21 mmol/L (22-30); Chloride 106 mmol/L (98-107); Glucose 97 mg/dL (74-99); Magnesium 1.5 mg/dL (1.6-2.3); Non-African American GFR(CKD) >90 (>60 ml/min/1.73 sqM); Salicylate <1.0 mg/dL; Sodium 138 mmol/L (137-145); Total Bilirubin 0.6 mg/dL (0.2-1.3); Total Protein 7.3 g/dL (6.3-8.2)
[2022-01-24 22:24] LABS: Potassium 4.8 mmol/L (3.5-5.1)
[2022-01-24 22:36] LABS: Basophils % (A) 0 %; Eosinophils # (A) 0.5 k/uL (0-0.7); Eosinophils % (A) 4 %; HCT 45.7 % (39.0-53.0); HGB 15.4 gm/dL (13.0-17.5); Lymphocytes # (A) 1.8 k/uL (1.0-4.8); Lymphocytes % (A) 16 %; MCH 31.5 pg (25.0-35.0); MCHC 33.8 g/dL (31.0-37.0); MCV 93.2 fL (80.0-100.0); Mean Platelet Volume 7.8; Monocytes # (A) 0.6 k/uL (0-1.0); Monocytes % (A) 5 %; Neutrophils # (A) 8.7 k/uL (1.3-7.7); Neutrophils % (A) 74 %; Platelet Count 261 k/uL (150-450); RDW 11.7 % (11.5-15.5); WBC 11.7 k/uL (3.8-10.6)
[2022-01-24] MEDS ORDERED: MAGNESIUM OXIDE 400 MG TAB PO STA (22:47)
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
--- NOTE | 2022-01-24 23:09 | XR ---
EXAMINATION TYPE: XR chest 1V DATE OF EXAM: 01/24/2022 COMPARISON: 09/26/2021 HISTORY: Seizure. TECHNIQUE: Single view FINDINGS: Heart and mediastinum are normal. Lungs are clear. Diaphragm is normal. There are chest jacky ds. Bony thorax is intact. There is right-sided ventricular shunt catheter noted. Catheter appears in tact. IMPRESSION: Normal chest. No change.
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
[2022-01-24] MEDS ORDERED: MORPHINE SULFATE 4 MG/ML SYRINGE IVP STA (23:28)
== END 2022-01-25 00:15 | disposition home or self-care (01) ==
LOC: EC 21:09
DX: G40.909 Epilepsy, unspecified, not intractable, without status epilepticus (principal); J45.909 Unspecified asthma, uncomplicated; E78.5 Hyperlipidemia, unspecified; F17.200 Nicotine dependence, unspecified, uncomplicated; Z88.8 Allergy status to other drugs, medicaments and biological substances
CPT/HCPCS: 36415; 93005; 80053; 83735; 85025; 80143; 80320; 80179; 72170; 71045; 72125; 70450; 99285; 96374; J2060

== ENCOUNTER → 2022-09-10 | Outpatient (CLI) | payer OTHER | END | disposition home or self-care (01) | LOC: LABWHC1 08:56 | PROVIDERS: ATTEND Psychiatry & Neurology Psychiatry | DX: F32.2 Major depressive disorder, single episode, severe without psychotic features (principal); Z79.899 Other long term (current) drug therapy | CPT/HCPCS: 36415; 80178 ==

== ENCOUNTER 2022-09-11 07:33 | Emergency (ER) | payer OTHER ==
--- NOTE | 2022-09-11 08:01 | ED ---
General Adult HPI - General Chief complaint: Skin/Abscess/Foreign Body Stated complaint: Infection Time Seen by Provider: 09/11/22 07:40 Source: patient Mode of arrival: ambulatory Limitations: no limitations - History of Present Illness Initial comments: 27-year-old male with past medical history of seizure disorder who presents to the emergency department reporting surgical site infection. Reports that he had a VNS stimulator placed on August [address] Maradiaga at [facility]. Approximately 1.5 weeks ago he noted some redness and swelling around his surgical sites. He called the office and was placed on Keflex. He has been taking Keflex for the past 5 days, twice a day but continues to have worsening redness and swelling. He currently does not have a postop visit scheduled. Patient presents to me today reporting worsening pain and redness to the site. Denies fevers. No nausea or vomiting. No chest pain or shortness of breath. Denies any recent seizure activity. No other alleviating, precipitating or modifying factors - Related Data Home Medications Medication Instructions Recorded Confirmed Divalproex Sodium [Divalproex 500 mg PO BID 01/24/22 01/24/22 Sodium ER] HYDROcodone/APAP 10-325MG [[place] 1 tab PO TID 01/24/22 01/24/22 10-325] Valtoco 10mg/0.1ml [place] 10 mg NASAL DAILY PRN 01/24/22 01/24/22 levETIRAcetam [Keppra] 750 mg PO BID 01/24/22 01/24/22 Allergies Allergy/AdvReac Type Severity Reaction Status Date / Time methocarbamol [From Robaxin] Allergy Red Verified 09/26/21 08:46 Syndrome Penicillins Allergy Anaphylaxis Verified 09/11/22 07:41 Review of Systems ROS Statement: Those systems with pertinent positive or pertinent negative responses have been documented in the HPI. ROS Other: All systems not noted in ROS Statement are negative. Past Medical History Past Medical History: Asthma, Hyperlipidemia, Seizure Disorder Additional Past Medical History / Comment(s): chiari malformation, MANAGER ARCHITECTURAL shunt, History of Any Multi-Drug Resistant Organisms: MRSA Date of last positivie culture/infection: 07/29/19 MDRO Source:: MRSA HEAD Past Surgical History: Orthopedic Surgery Additional Past Surgical History / Comment(s): chiari malformation, VNS procedure 3/2 Past Psychological History: No Psychological Hx Reported Smoking Status: Current every day smoker Past Alcohol Use History: Occasional Past Drug Use History: None Reported General Exam Limitations: no limitations General appearance: alert, in no apparent distress Head exam: Present: atraumatic, normocephalic, normal inspection Eye exam: Present: normal appearance, PERRL, EOMI. Absent: scleral icterus, conjunctival injection, periorbital swelling ENT exam: Present: normal exam, mucous membranes moist Neck exam: Present: normal inspection. Absent: tenderness, meningismus, lymphadenopathy Respiratory exam: Present: normal lung sounds bilaterally. Absent: respiratory distress, wheezes, rales, rhonchi, stridor Cardiovascular Exam: Present: regular rate, normal rhythm, normal heart sounds. Absent: systolic murmur, diastolic murmur, rubs, gallop, clicks GI/Abdominal exam: Present: soft, normal bowel sounds. Absent: distended, tenderness, guarding, rebound, rigid Extremities exam: Present: normal inspection, full ROM, normal capillary refill. Absent: tenderness, pedal edema, joint swelling, calf tenderness Back exam: Present: normal inspection Neurological exam: Present: alert, oriented X3, CN II-XII intact Psychiatric exam: Present: normal affect, normal mood Skin exam: Present: warm, dry, erythema (Erythema and fluctuance over stimulator in left chest wall), other (There is a 3 cm surgical incision on the patient's left neck. Incision is well-healed however there is surrounding area of redness and mild fluctuance. Patient does have second incision site over the left lateral chest wall. Most lateral aspect of incision has some crusting. No drainage. ) Course Vital Signs 09/11/22 09/11/22 07:35 08:16 Temperature 98.4 F 98.6 F Pulse Rate 88 82 Respiratory 20 23 Rate Blood Pressure 127/81 129/87 O2 Sat by Pulse 97 94 L Oximetry - Reevaluation(s) Reevaluation #1: Spoke with Dr. Maradiaga - stimulator will have to come out. Needs transfer to [facility] 09/11/22 0950 Reevaluation #2: Spoke with Dr. Matson at [facility] and accepts transfer of the patient 09/11/22 10:09 Medical Decision Making - Medical Decision Making Was pt. sent in by a medical professional or institution (Dr., PA, CHRONIC MANAGER, urgent care, hospital, or [facility]...) When possible be specific @ -No Did you speak to anyone other than the patient for history (EMS, parent, family, police, friend...)? What history was obtained from this source @ -No Did you review nursing and triage notes (agree or disagree)? Why? @ -I reviewed and agree with nursing and triage notes Were old charts reviewed (outside hosp., previous admission, EMS record, old EKG, old radiological studies, urgent care reports/EKG's, [facility] records)? Report findings @ -No old charts were reviewed Differential Diagnosis (chest pain, altered mental status, abdominal pain women, abdominal pain men, vaginal bleeding, weakness, fever, dyspnea, syncope, headache, dizziness, GI bleed, back pain, seizure, CVA, palpatations, mental health, musculoskeletal)? @ -Differential Fever: Pneumonia, viral URI, endocarditis, myocarditis, pericarditis, otitis, sinusitis, peritonsillar Abscess, retropharyngeal Abscess, epiglottitis, peritonitis, appendicitis, [place] cystitis, diverticulitis, hepatitis, colitis, UTI, PID, TOA, pyelonephritis, prostatitis, epididymitis, meningitis, encephalitis, pulmonary embolism, CVA, thyroid storm, pancreatitis, adrenal crisis, cavernous sinus thrombosis, this is not meant to be an all-inclusive list. EKG interpreted by me (3pts min.). @ -Not done X-rays interpreted by me (1pt min.). @ -None done CT interpreted by me (1pt min.). @ -None done U/S interpreted by me (1pt. min.). @ -None done What testing was considered but not performed or refused? (CT, X-rays, U/S, labs)? Why? @ -None What meds were considered but not given or refused? Why? @ -None Did you discuss the management of the patient with other professionals (professionals i.e. BRICE Erickson, CHRONIC MANAGER, lab, RT, psych nurse, aids social worker, convolute tube winder, teacher, affirmative action officer, onsite case manager)? Give summary @ -Dr. Maradiaga, the patients surgeon Was smoking cessation discussed for >3mins.? @ -No Was critical care preformed (if so, how long)? @ -No Were there social determinants of health that impacted care today? How? (Homelessness, low income, unemployed, alcoholism, drug addiction, transportation, low edu. Level, literacy, decrease access to med. care, residential, rehab)? @ -No Was there de-escalation of care discussed even if they declined (Discuss DNR or withdrawal of care, Hospice)? DNR status @ -No What co-morbidities impacted this encounter? (DM, HTN, Smoking, COPD, CAD, Cancer, CVA, ARF, Chemo, Hep., AIDS, mental health diagnosis, sleep apnea, morbid obesity)? @ -Seizure disorder Was patient admitted / discharged? Hospital course, mention meds given and route, prescriptions, significant lab abnormalities, going to OR and other pertinent info. @ -Upon arrival patient was placed into room 16. A thorough history and physical exam was performed. IV access is established laboratory studies are conducted. The surgical site does have some crusting at the lateral edge of the incision however there is no drainage. There is some fluctuance, redness and warmth at both incisions. Laboratory studies are conducted. He was given a dose of clindamycin and Vanco in the emergency department. I called and spoke with Dr. Maradiaga who states that the stimulator must come out. He only performs the procedure at [facility]. I did call [facility] and patient was accepted by Dr. Matson. Patient wishes to go by private vehicle. Risks of transfer by private vehicle were discussed with the patient. He is aware of these risks and continues to want to drive himself to the hospital. He is instructed to go straight there. Do not stop. Do not eat. Patient understood this and was given his laboratory study paperwork. Undiagnosed new problem with uncertain prognosis? @ -Yes Drug Therapy requiring intensive monitoring for toxicity (Heparin, Nitro, Insulin, Cardizem)? @ -No Were any procedures done? @ -No Diagnosis/symptom? @ -Suspected postop infection, VNS stimulator Acute, or Chronic, or Acute on Chronic? @ -Acute Uncomplicated (without systemic symptoms) or Complicated (systemic symptoms)? @ -Complicated Side effects of treatment? @ -No Exacerbation, Progression, or Severe Exacerbation? @ -No Poses a threat to life or bodily function? How? (Chest pain, USA, [place], pneumonia, PE, COPD, DKA, ARF, appy, cholecystitis, CVA, Diverticulitis, Homicidal, Suicidal, threat to staff... and all critical care pts) @ -Yes - Lab Data Result diagrams: 09/11/22 08:11 09/11/22 08:11 Lab Results 09/11/22 09/11/22 09/11/22 Range/Units 08:11 08:11 08:11 WBC 10.8 H (3.8-10.6) k/uL RBC 4.56 (4.30-5.90) m/uL Hgb 14.7 (13.0-17.5) gm/dL Hct 43.6 (39.0-53.0) % MCV 95.5 (80.0-100.0) fL MCH 32.2 (25.0-35.0) pg MCHC 33.7 (31.0-37.0) g/dL RDW 11.6 (11.5-15.5) % Plt Count 289 (150-450) k/uL MPV 7.6 Neutrophils % 80 % Lymphocytes % 10 % Monocytes % 4 % Eosinophils % 3 % Basophils % 0 % Neutrophils # 8.7 H (1.3-7.7) k/uL Lymphocytes # 1.1 (1.0-4.8) k/uL Monocytes # 0.5 (0-1.0) k/uL Eosinophils # 0.4 (0-0.7) k/uL Basophils # 0.0 (0-0.2) k/uL Sodium 137 (137-145) mmol/L Potassium 4.1 (3.5-5.1) mmol/L Chloride 105 (98-107) mmol/L Carbon Dioxide 24 (22-30) mmol/L Anion Gap 8 mmol/L BUN 13 (9-20) mg/dL Creatinine 0.75 (0.66-1.25) mg/dL Est GFR (CKD-EPI)AfAm >90 (>60 ml/min/1.73 sqM) Est GFR (CKD-EPI)NonAf >90 (>60 ml/min/1.73 sqM) Glucose 106 H (74-99) mg/dL Plasma Lactic Acid [place] 1.3 (0.7-2.0) mmol/L Calcium 9.7 (8.4-10.2) mg/dL Total Bilirubin 0.6 (0.2-1.3) mg/dL AST 17 (17-59) U/L ALT 17 (4-49) U/L Alkaline Phosphatase 65 (38-126) U/L C-Reactive Protein 6.5 H (<1.0) mg/dL Total Protein 7.0 (6.3-8.2) g/dL Albumin 4.2 (3.5-5.0) g/dL Disposition Clinical Impression: Status post VNS (vagus nerve stimulator) placement, Cellulitis Disposition: OTHER INSTITUTION NOT DEFINED Condition: Serious Is patient prescribed a controlled substance at d/c from ED?: No Referrals: Michaela Easley MD [Primary Care Provider] - 1-2 days - Out of Hospital Transfer - Req. Specs Out of Hospital Transfer - Requested Specifics: Other Emergency Center ([facility]
[2022-09-11] MEDS ORDERED: VANCOMYCIN IV PER PHARMACY 1 EACH MISC MISCELLANE PRN (08:02)
[2022-09-11] MEDS ORDERED: CLINDAMYCIN 600 MG in DEXTROSE 5% IN WATER 50 ML IVPB STA ×2 (08:12)
[2022-09-11 08:18] VITALS: TEMP 98.6
[2022-09-11 08:36] LABS: Basophils % (A) 0 %; Eosinophils # (A) 0.4 k/uL (0-0.7); Eosinophils % (A) 3 %; HCT 43.6 % (39.0-53.0); HGB 14.7 gm/dL (13.0-17.5); Lymphocytes # (A) 1.1 k/uL (1.0-4.8); Lymphocytes % (A) 10 %; MCH 32.2 pg (25.0-35.0); MCHC 33.7 g/dL (31.0-37.0); MCV 95.5 fL (80.0-100.0); Mean Platelet Volume 7.6; Monocytes # (A) 0.5 k/uL (0-1.0); Monocytes % (A) 4 %; Neutrophils # (A) 8.7 k/uL (1.3-7.7); Neutrophils % (A) 80 %; Platelet Count 289 k/uL (150-450); RBC 4.56 m/uL (4.30-5.90); RDW 11.6 % (11.5-15.5); WBC 10.8 k/uL (3.8-10.6)
[2022-09-11] MEDS ORDERED: VANCOMYCIN 1,500 MG in SODIUM CHLORIDE 0.9% 500 ML 500 ML IVPB ONE (09:00)
[2022-09-11 09:04] LABS: ALT 17 U/L (4-49); AST 17 U/L (17-59); African American GFR (CKD) >90 (>60 ml/min/1.73 sqM); Albumin 4.2 g/dL (3.5-5.0); Alkaline Phosphatase 65 U/L (38-126); Anion Gap 8 mmol/L; Blood Urea Nitrogen 13 mg/dL (9-20); Calcium 9.7 mg/dL (8.4-10.2); Carbon Dioxide 24 mmol/L (22-30); Chloride 105 mmol/L (98-107); Glucose 106 mg/dL (74-99); Non-African American GFR(CKD) >90 (>60 ml/min/1.73 sqM); Potassium 4.1 mmol/L (3.5-5.1); Sodium 137 mmol/L (137-145); Total Bilirubin 0.6 mg/dL (0.2-1.3)
[2022-09-11 09:55] LABS: C Reactive Protein 6.5 mg/dL (<1.0)
[2022-09-11 10:40] VITALS: BP 132/78; PULSE 90; RESP 18
[2022-09-11 10:40] LABS: Erythrocyte Sedimentation Rate 19 mm/hr (0-15)
[2022-09-11] MEDS ORDERED: VANCOMYCIN 1,500 MG in SODIUM CHLORIDE 0.9% 500 ML 500 ML IVPB SCH (16:00)
== END 2022-09-11 11:05 | disposition other institution (70) ==
LOC: EC 07:33
DX: Z96.82 Presence of neurostimulator (principal); L03.313 Cellulitis of chest wall; J45.909 Unspecified asthma, uncomplicated; F17.200 Nicotine dependence, unspecified, uncomplicated; Z88.0 Allergy status to penicillin; Z88.8 Allergy status to other drugs, medicaments and biological substances; Z79.899 Other long term (current) drug therapy
CPT/HCPCS: 36415; 80053; 85652; 83605; 85025; 86140; 87040; 99284; 96365; 96367; J3370

== ENCOUNTER 2023-01-20 05:10 | Emergency (ER) | payer OTHER ==
[2023-01-20 06:10] LABS: Basophils % (A) 0 %; Eosinophils # (A) 0.1 k/uL (0-0.7); Eosinophils % (A) 1 %; HCT 46.6 % (39.0-53.0); HGB 16.1 gm/dL (13.0-17.5); Lymphocytes # (A) 1.7 k/uL (1.0-4.8); Lymphocytes % (A) 14 %; MCH 32.5 pg (25.0-35.0); MCHC 34.6 g/dL (31.0-37.0); MCV 93.9 fL (80.0-100.0); Mean Platelet Volume 7.9; Monocytes # (A) 0.5 k/uL (0-1.0); Monocytes % (A) 4 %; Neutrophils # (A) 9.5 k/uL (1.3-7.7); Neutrophils % (A) 80 %; Platelet Count 221 k/uL (150-450); RBC 4.97 m/uL (4.30-5.90); RDW 12.3 % (11.5-15.5); WBC 11.9 k/uL (3.8-10.6)
[2023-01-20 06:20] LABS: ALT 38 U/L (4-49); AST 26 U/L (17-59); African American GFR (CKD) >90 (>60 ml/min/1.73 sqM); Albumin 4.8 g/dL (3.5-5.0); Alcohol <10 mg/dL; Alkaline Phosphatase 63 U/L (38-126); Anion Gap 12 mmol/L; Blood Urea Nitrogen 19 mg/dL (9-20); Calcium 10.1 mg/dL (8.4-10.2); Carbon Dioxide 18 mmol/L (22-30); Chloride 115 mmol/L (98-107); Glucose 101 mg/dL (74-99); Non-African American GFR(CKD) >90 (>60 ml/min/1.73 sqM); Potassium 4.2 mmol/L (3.5-5.1); Sodium 145 mmol/L (137-145); Total Bilirubin 0.5 mg/dL (0.2-1.3); Total Protein 7.7 g/dL (6.3-8.2)
--- NOTE | 2023-01-20 06:56 | ED ---
General Adult HPI - General Source: police Mode of arrival: EMS <Melinda Lisa - Last Filed: 01/20/23 07:25> <Jacob Graff - Last Filed: 01/20/23 13:22> - General Chief complaint: Psychiatric Symptoms Stated complaint: Mental Health Time Seen by Provider: 01/20/23 05:15 - History of Present Illness Initial comments: 27-year-old male with past history of Chiari malformation with shunt placement, seizure disorder who presents to the emergency department accompanied by police. Police were called to the patient's house for a normal behavior. His mother made a call. She states he was banging his head on the wall and walking in cir cles. He had nonsensical speech. She reports that he has a history of schizophrenia, TBI and seizure disorder. She petitioned the patient for mental health evaluation. He reportedly follows with [facility]. Patient cannot provide much history to me at all. He continues to state "I'm all good". There are no visible signs of injury. Unknown if he is taking his medications. No other alleviating, precipitating or modifying factors (Melinda Lisa) - Related Data Home Medications Medication Instructions Recorded Confirmed HYDROcodone/APAP 10-325MG [[place] 1 tab PO TID 01/24/22 01/20/23 10-325] levETIRAcetam [Keppra] 1,500 mg PO BID 01/24/22 01/20/23 ARIPiprazole [Abilify] 5 mg PO HS 01/20/23 01/20/23 Albuterol Sulfate [Ventolin HFA] 2 puff INHALATION RT-Q4H PRN 01/20/23 01/20/23 Divalproex Sodium [Depakote] 500 mg PO BID 01/20/23 01/20/23 Divalproex [Depakote] 250 mg PO BID 01/20/23 01/20/23 Famotidine [Pepcid] 10 mg PO BID PRN 01/20/23 01/20/23 Lacosamide [Vimpat] 200 mg PO BID 01/20/23 01/20/23 [place] Carbonate 900 mg PO HS 01/20/23 01/20/23 Loratadine 10 mg PO DAILY 01/20/23 01/20/23 Midazolam [Nayzilam] 5 mg NASAL DIRECTED PRN 01/20/23 01/20/23 Perampanel [Fycompa] 8 mg PO HS 01/20/23 01/20/23 Sertraline [Zoloft] 200 mg PO DAILY 01/20/23 01/20/23 diazePAM [Valium] 10 mg PO BID 01/20/23 01/20/23 traZODone HCL 200 mg PO HS PRN 01/20/23 01/20/23 Allergies Allergy/AdvReac Type Severity Reaction Status Date / Time methocarbamol [From Robaxin] Allergy Red Verified 01/20/23 09:08 Syndrome Penicillins Allergy Anaphylaxis Verified 01/20/23 09:08 Review of Systems ROS Other: All systems not noted in ROS Statement are negative. <Melinda Lisa - Last Filed: 01/20/23 07:25> ROS Other: All systems not noted in ROS Statement are negative. <Jacob Graff - Last Filed: 01/20/23 13:22> ROS Statement: Those systems with pertinent positive or pertinent negative responses have been documented in the HPI. Past Medical History Past Medical History: Asthma, Hyperlipidemia, Seizure Disorder Additional Past Medical History / Comment(s): chiari malformation, ASSISTANT DEAN shunt, History of Any Multi-Drug Resistant Organisms: MRSA Date of last positivie culture/infection: 07/29/19 MDRO Source:: MRSA HEAD Past Surgical History: Orthopedic Surgery Additional Past Surgical History / Comment(s): chiari malformation, VNS procedure 3/ Past Psychological History: No Psychological Hx Reported Smoking Status: Current every day smoker Past Alcohol Use History: Occasional Past Drug Use History: None Reported <Melinda Lisa - Last Filed: 01/20/23 07:25> General Exam Limitations: altered mental status General appearance: alert, in no apparent distress Head exam: Present: atraumatic, normocephalic, normal inspection Eye exam: Present: normal appearance, PERRL, EOMI. Absent: scleral icterus, conjunctival injection, periorbital swelling ENT exam: Present: normal exam, mucous membranes moist Neck exam: Present: normal inspection. Absent: tenderness, meningismus, lymphadenopathy Respiratory exam: Present: normal lung sounds bilaterally. Absent: respiratory distress, wheezes, rales, rhonchi, stridor Cardiovascular Exam: Present: normal rhythm, tachycardia, normal heart sounds. Absent: systolic murmur, diastolic murmur, rubs, gallop, clicks GI/Abdominal exam: Present: soft, normal bowel sounds. Absent: distended, tenderness, guarding, rebound, rigid Extremities exam: Present: normal inspection, full ROM, normal capillary refill. Absent: tenderness, pedal edema, joint swelling, calf tenderness Back exam: Present: normal inspection Neurological exam: Present: alert, CN II-XII intact, other (Oriented to self and year) Psychiatric exam: Present: agitated Skin exam: Present: warm, dry, intact, normal color. Absent: rash <Melinda Lisa - Last Filed: 01/20/23 07:25> Course Vital Signs 01/20/23 01/20/23 01/20/23 05:10 07:15 09:00 Temperature 98.8 F 98.8 F Pulse Rate 118 H 89 87 Respiratory 16 18 18 Rate Blood Pressure 135/88 128/86 O2 Sat by Pulse 99 100 99 Oximetry 01/20/23 13:00 Temperature 98.4 F Pulse Rate 83 Respiratory 18 Rate Blood Pressure 127/79 O2 Sat by Pulse 99 Oximetry Medical Decision Making - Lab Data Result diagrams: 01/20/23 06:00 01/20/23 06:00 <Melinda Lisa - Last Filed: 01/20/23 07:25> - Lab Data Result diagrams: 01/20/23 06:00 01/20/23 06:00 <Jacob Graff - Last Filed: 01/20/23 13:22> - Medical Decision Making Was pt. sent in by a medical professional or institution (BRICE Erickson, PLASTIC MIXER, urgent care, hospital, or care home...) When possible be specific @ -Police accompanying the patient into the hospital Did you speak to anyone other than the patient for history (EMS, parent, family, police, friend...)? What history was obtained from this source @ -Police and EMS Did you review nursing and triage notes (agree or disagree)? Why? @ -I reviewed and agree with nursing and triage notes Were old charts reviewed (outside hosp., previous admission, EMS record, old EKG, old radiological studies, urgent care reports/EKG's, care home records)? Report findings @ -Old charts from August were reviewed. Patient had been seen for an infected VNS stimulator Differential Diagnosis (chest pain, altered mental status, abdominal pain women, abdominal pain men, vaginal bleeding, weakness, fever, dyspnea, syncope, headache, dizziness, GI bleed, back pain, seizure, CVA, palpatations, mental health, musculoskeletal)? @ -Differential Mental Health Depression, anxiety, bipolar, psychosis, schizophrenia, borderline personality, situational depression, adjustment disorder, behavioral disorder, brain tumor, m alingering, substance abuse, encephalopathy, medication reaction, dementia, hypothyroidism, degenerative neurologic disorder, lupus.... This is not meant to be all-inclusive list EKG interpreted by me (3pts min.). @ -Not done X-rays interpreted by me (1pt min.). @ -None done CT interpreted by me (1pt min.). @ -Yes and demonstrates no acute process U/S interpreted by me (1pt. min.). @ -None done What testing was considered but not performed or refused? (CT, X-rays, U/S, labs)? Why? @ -None What meds were considered but not given or refused? Why? @ -None Did you discuss the management of the patient with other professionals (professionals i.e. , PA, PLASTIC MIXER, lab, RT, psych nurse, high school social science teacher, files supervisor, teacher, supply officer, residential case manager)? Give summary @ -Spoke with Dr. Graff in the EPS nurse Was smoking cessation discussed for >3mins.? @ -No Was critical care preformed (if so, how long)? @ -No Were there social determinants of health that impacted care today? How? (Homelessness, low income, unemployed, alcoholism, drug addiction, transportation, low edu. Level, literacy, decrease access to med. care, correction, rehab)? @ -No Was there de-escalation of care discussed even if they declined (Discuss DNR or withdrawal of care, Hospice)? DNR status @ -No What co-morbidities impacted this encounter? (DM, HTN, Smoking, COPD, CAD, Cancer, CVA, ARF, Chemo, Hep., AIDS, mental health diagnosis, sleep apnea, morbid obesity)? @ -Seizure disorder, Chiari malformation Was patient admitted / discharged? Hospital course, mention meds given and route, prescriptions, significant lab abnormalities, going to OR and other perti nent info. @ -Upon arrival patient was placed into room 11. History and physical exam was performed. Laboratory studies are conducted. Patient is sent for a CT of his head because of this reported head injury. Awaiting CT read and laboratory studies. Patient will be signed out to Dr. Graff Undiagnosed new problem with uncertain prognosis? @ -Yes Drug Therapy requiring intensive monitoring for toxicity (Heparin, Nitro, Insulin, Cardizem)? @ -No Were any procedures done? @ -No (Melinda Lisa) Was patient admitted / discharged? Hospital course, mention meds given and route, prescriptions, significant lab abnormalities, going to OR and other pertinent info. @ -Patient was signed out to me at 7 AM. EPS evaluated the patient I spoke with family and decided that the patient was safe to go home patient will be discharged Undiagnosed new problem with uncertain prognosis? @ -No Drug Therapy requiring intensive monitoring for toxicity (Heparin, Nitro, Insulin, Cardizem)? @ -No Were any procedures done? @ -No Diagnosis/symptom? @ -Major depression Acute, or Chronic, or Acute on Chronic? @ -Chronic Uncomplicated (without systemic symptoms) or Complicated (systemic symptoms)? @ -Complicated Side effects of treatment? @ -No Exacerbation, Progression, or Severe Exacerbation? @ -No Poses a threat to life or bodily function? How? (Chest pain, [place], [place], pneumonia, PE, COPD, DKA, ARF, appy, cholecystitis, CVA, Diverticulitis, Homicidal, Suicidal, threat to staff... and all critical care pts) @ -No (Jacob Graff) - Lab Data Lab Results 01/20/23 01/20/23 01/20/23 Range/Units 06:00 06:00 08:33 WBC 11.9 H (3.8-10.6) k/uL RBC 4.97 (4.30-5.90) m/uL Hgb 16.1 (13.0-17.5) gm/dL Hct 46.6 (39.0-53.0) % MCV 93.9 (80.0-100.0) fL MCH 32.5 (25.0-35.0) pg MCHC 34.6 (31.0-37.0) g/dL RDW 12.3 (11.5-15.5) % Plt Count 221 (150-450) k/uL MPV 7.9 Neutrophils % 80 % Lymphocytes % 14 % Monocytes % 4 % Eosinophils % 1 % Basophils % 0 % Neutrophils # 9.5 H (1.3-7.7) k/uL Lymphocytes # 1.7 (1.0-4.8) k/uL Monocytes # 0.5 (0-1.0) k/uL Eosinophils # 0.1 (0-0.7) k/uL Basophils # 0.0 (0-0.2) k/uL Sodium 145 (137-145) mmol/L Potassium 4.2 (3.5-5.1) mmol/L Chloride 115 H (98-107) mmol/L Carbon Dioxide 18 L (22-30) mmol/L Anion Gap 12 mmol/L BUN 19 (9-20) mg/dL Creatinine 1.05 (0.66-1.25) mg/dL Est GFR (CKD-EPI)AfAm >90 (>60 ml/min/1.73 sqM) Est GFR (CKD-EPI)NonAf >90 (>60 ml/min/1.73 sqM) Glucose 101 H (74-99) mg/dL Calcium 10.1 (8.4-10.2) mg/dL Total Bilirubin 0.5 (0.2-1.3) mg/dL AST 26 (17-59) U/L ALT 38 (4-49) U/L Alkaline Phosphatase 63 (38-126) U/L Total Protein 7.7 (6.3-8.2) g/dL Albumin 4.8 (3.5-5.0) g/dL Urine Color Light Red Urine Appearance Clear (Clear) Urine pH 5.5 (5.0-8.0) Ur Specific [place] 1.025 (1.001-1.035) Urine Protein 1+ H (Negative) Urine Glucose (UA) Negative (Negative) Urine Ketones 1+ H (Negative) Urine Blood Negative (Negative) Urine Nitrite Negative (Negative) Urine Bilirubin Negative (Negative) Urine Urobilinogen <2.0 (<2.0) mg/dL Ur Leukocyte Esterase Negative (Negative) Urine RBC 1 (0-5) /hpf Urine WBC 2 (0-5) /hpf Ur Squamous Epith Cells <1 (0-4) /hpf Hyaline Casts 1 (0-2) /lpf Urine Mucus Few H (None) /hpf Urine Opiates Screen Not Detected (NotDetected) Ur Oxycodone Screen Not Detected (NotDetected) Urine Methadone Screen Not Detected (NotDetected) Ur Propoxyphene Screen Not Detected (NotDetected) Ur Barbiturates Screen Not Detected (NotDetected) Valproic Acid 63.3 ug/mL U Tricyclic Antidepress Not Detected (NotDetected) Ur Phencyclidine Scrn Not Detected (NotDetected) Ur Amphetamines Screen Not Detected (NotDetected) U Methamphetamines Scrn Not Detected (NotDetected) U Benzodiazepines Scrn Detected H (NotDetected) Urine Cocaine Screen Not Detected (NotDetected) U Marijuana (THC) Screen Detected H (NotDetected) Serum Alcohol <10 mg/dL Disposition <Melinda Lisa - Last Filed: 01/20/23 07:25> Is patient prescribed a controlled substance at d/c from ED?: No Time of Disposition: 13:20 <Jacob Graff - Last Filed: 01/20/23 13:22> Clinical Impression: Depression, Seizure disorder Disposition: HOME SELF-CARE Condition: Good Instructions (If sedation given, give patient instructions): Depression (ED) Referrals: None,Stated [REFERRING] - 1-2 days
--- NOTE | 2023-01-20 07:14 | CT ---
EXAMINATION TYPE: CT brain cspine wo con CT DLP: 1427.6 mGycm, Automated exposure control for dose reduction was used. DATE OF EXAM: 01/20/2023 5:52 AM COMPARISON: CT brain C-spine 01/24/2022. CLINICAL INDICATION:Male, 27 years old with history of head injury, ams; TECHNIQUE: Brain: Multiple axial CT images of the brain were obtained without IV contrast. Sagittal reformats re viewed. Cspine: Axial CT images from the skull base to the inferior aspect of T2 we obtained without intraven ous contrast. Coronal and sagittal reformatted images were also reviewed. FINDINGS: Brain: Extra-axial spaces: No abnormal extra-axial fluid collections. Ventricular system: Right frontal approach EMBEDDED SYSTEMS ENGINEER shunt catheter with tip terminating in the anterior asp ect of the right lateral ventricle near midline. The visualized catheter appears intact. No hydroceph alus. Cerebral parenchyma: No acute intraparenchymal hemorrhage or mass effect. The fabian-white junction is well differentiated. Cerebellum: Unremarkable. Mass effect: No evidence of midline shift. Intracranial vasculature: unremarkable Soft tissues: Normal. Calvarium/osseous structures: No depressed skull fracture. Postsurgical changes of the right frontal bone from EMBEDDED SYSTEMS ENGINEER shunt catheter. Additional postsurgical changes lower occipital craniotomy defect redemo nstrated. Paranasal sinuses and mastoid air cells: The mastoid air cells are clear. Likely 0.9 cm mucous retent ion cyst within the left maxillary sinus. Visualized orbits: Orbital contents are intact. Cervical spine: Fracture: None. Osseous structures: Postsurgical changes from occipital craniotomy defect. Incomplete fusion posterio r arch of C1. Vertebral alignment: Within normal limits. Spinal canal/Neural Foramina: No evidence of significant spinal canal narrowing. No evidence for sign ificant neural foraminal stenosis. Neck soft tissues: Prevertebral soft tissues are within normal limits. Other: The airway is patent. The lung apices are clear. Right anterior neck EMBEDDED SYSTEMS ENGINEER shunt catheter identif ied. IMPRESSION: 1. No acute intracranial process. 2. Stable postsurgical changes from right frontal approach EMBEDDED SYSTEMS ENGINEER shunt catheter. No hydrocephalus. 3. No evidence of cervical spine fracture.
[2023-01-20 07:53] VITALS: RESP 18
[2023-01-20 08:43] LABS: Appearance,Urine Clear (Clear); Bilirubin,Urine Negative (Negative); Blood,Urine Negative (Negative); Color,Urine Light Red; Glucose,Urine (UA) Negative (Negative); Hyaline Casts,Urine 1 /lpf (0-2); Ketones,Urine 1+ (Negative); Leukocyte Esterase,Urine Negative (Negative); Mucus,Urine Few /hpf; Nitrite,Urine Negative (Negative); PH, Urine 5.5 (5.0-8.0); Protein,Urine 1+ (Negative); RBC,Urine 1 /hpf (0-5); Specific Gravity,Urine 1.025 (1.001-1.035); Squamous Epithelial Cell,Urine <1 /hpf (0-4); Urobilinogen,Urine <2.0 mg/dL (<2.0); WBC,Urine 2 /hpf (0-5)
[2023-01-20 08:52] LABS: Valproic Acid (Depakene) 63.3 ug/mL
[2023-01-20 08:56] LABS: Amphetamine Screen,Urine Not Detected (NotDetected); Barbiturate Screen,Urine Not Detected (NotDetected); Benzodiazepines Screen,Urine Detected (NotDetected); Cocaine Screen,Urine Not Detected (NotDetected); Methadone Screen, Urine Not Detected (NotDetected); Opiate Screen,Urine Not Detected (NotDetected); Oxycodone Screen, Urine Not Detected (NotDetected); Phencyclidine Screen,Urine Not Detected (NotDetected); Tricyclic Antidepressant,Urine Not Detected (NotDetected); Urn Cannabinoid Scrn Detected (NotDetected)
[2023-01-20] MEDS ORDERED: HYDROcodone/APAP 10-325MG 1 EACH TAB PO ONE (12:33)
[2023-01-20 13:08] VITALS: BP 127/79; PULSE 83; TEMP 98.4
== END 2023-01-20 13:25 | disposition home or self-care (01) ==
LOC: EC 05:10
DX: G40.909 Epilepsy, unspecified, not intractable, without status epilepticus (principal); F32.A Depression, unspecified; J45.909 Unspecified asthma, uncomplicated; E78.5 Hyperlipidemia, unspecified; F17.200 Nicotine dependence, unspecified, uncomplicated; Z88.0 Allergy status to penicillin; Z88.8 Allergy status to other drugs, medicaments and biological substances; Z79.899 Other long term (current) drug therapy
CPT/HCPCS: 82075; 36415; 80164; 80053; 85025; 81001; 80306; 72125; 70450; 99285; G0480; 80320

== ENCOUNTER → 2023-05-02 | Outpatient (CLI) | payer OTHER ==
--- NOTE | 2023-05-02 13:24 | XR ---
EXAMINATION TYPE: XR foot complete LT DATE OF EXAM: 05/02/2023 1:18 PM INDICATION: Patient age:Male; 27 years old; Reason for study: S93.602A; [facility]. COMPARISON: None TECHNIQUE: The left foot was examined in the AP, oblique, and lateral projections. FINDINGS: No evidence of any acute osseous pathology. No evidence of soft tissue swelling. Joints are preserve d. Incidental note is made of symphalangism of the fifth distal interphalangeal joint. IMPRESSION: No evidence of acute fracture.
== END | disposition home or self-care (01) ==
LOC: RADXRMAIN 12:53
PROVIDERS: ATTEND Emergency Medicine
DX: S93.602A Unspecified sprain of left foot, initial encounter (principal)

== ENCOUNTER → 2023-05-05 | Outpatient (CLI) | payer OTHER ==
--- NOTE | 2023-05-05 14:46 | XR ---
EXAMINATION TYPE: XR foot complete LT, XR ankle complete LT DATE OF EXAM: 05/05/2023 2:38 PM CLINICAL INDICATION:Male, 27 years old with history of S93.402A sprain ligament left ankle S93.602Asp rain; [facility] COMPARISON: 05/02/2023. TECHNIQUE: XR foot complete LT, XR ankle complete LT examined in the AP, oblique, and lateral project ions. FINDINGS: No evidence of any acute osseous pathology. No evidence of soft tissue swelling. Joints are preserve d. IMPRESSION: No evidence of acute fracture.
== END | disposition home or self-care (01) ==
LOC: RADXRMAIN 14:15
PROVIDERS: ATTEND Emergency Medicine
DX: S93.402A Sprain of unspecified ligament of left ankle, initial encounter (principal); S93.602A Unspecified sprain of left foot, initial encounter

== ENCOUNTER → 2023-05-31 | Outpatient (CLI) | payer OTHER ==
--- NOTE | 2023-06-04 14:22 | MR ---
MRI left ankle. HISTORY: Pain following trauma. COMPARISON: None TECHNIQUE: Multiecho multiplanar images of the left ankle were obtained without contrast. FINDINGS: The osseous structures are intact and there is no bone contusion or fracture. There is a small joint effusion. There is mild fluid in the posterior tibial tendon sheath but the tendon is intact. The remaining ten dons of the ankle are intact without tear. There is no ligamentous injury. The soft tissues in the plantar aspect of the foot and ankle are normal. IMPRESSION: 1. Small joint effusion. 2. Mild fluid in the posterior tendon sheath without tendon tear. 3. No ligamentous injury.
== END | disposition home or self-care (01) ==
LOC: RADMRIMAIN 18:53
PROVIDERS: ATTEND Emergency Medicine
DX: M25.472 Effusion, left ankle (principal); S93.402D Sprain of unspecified ligament of left ankle, subsequent encounter; S93.602D Unspecified sprain of left foot, subsequent encounter; X58.XXXD Exposure to other specified factors, subsequent encounter

== ENCOUNTER → 2024-01-01 | Outpatient (CLI) | payer OTHER ==
--- NOTE | 2024-01-01 11:32 | CT ---
EXAMINATION TYPE: CT cervical spine wo con CT DLP: combined 1016.2 mGycm, Automated exposure control for dose reduction was used. DATE OF EXAM: 01/01/2024 10:48 AM COMPARISON: CT brain C-spine 01/20/2023. 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 Coronal and sagittal reformatted images were also reviewed. FINDINGS: Fracture: None. Osseous structures: Postsurgical changes from lower occipital craniotomy defect redemonstrated. Posts urgical change involving the posterior arch of C1 redemonstrated. Vertebral alignment: Within normal limits. Spinal canal/Neural Foramina: Posterior disc aspect complexes at C3-C4 without significant central ca nal stenosis. Central disc extrusion at C4-C5 without significant central canal stenosis. Central dis c protrusion at C5-C6 mesentery and central canal stenosis. Uncovertebral joint hypertrophy at C3-C4 with mild left neural foraminal narrowing. Uncovertebral joint hypertrophy at C4-C5 with mild right n eural foraminal narrowing. Neck soft tissues: Prevertebral soft tissues are within normal limits. Other: The airway is patent. The lung apices are clear. Partial visualization of right sided REHAB/PRE VOCATIONAL COUNSELOR shunt catheter. Partial visualization of left neck stimulator lead. Mild mucosal thickening of the inferio r left maxillary sinus. Mild mucosal thickening of the ethmoid sinuses. IMPRESSION: 1. No evidence of cervical spine fracture. 2. Stable post surgical changes from lower occipital craniotomy. 3. Mild multilevel degenerative disease and uncovertebral joint hypertrophy as described above.
--- NOTE | 2024-01-01 12:32 | CT ---
EXAMINATION TYPE: CT lumbar spine wo con CT DLP: combined 1016.2 mGycm, Automated exposure control for dose reduction was used. DATE OF EXAM: 01/01/2024 10:47 AM COMPARISON: CT lumbar spine 09/26/2021. 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 Soft tissue and bone windows in coronal and sagittal planes were obtained and reviewed. Contrast used: none. Oral contrast used: none. FINDINGS: There are 5 lumbar-type vertebra. Lumbar spine shows satisfactory alignment without evidence of acute fracture or dislocation. Vertebral body heights and disc space heights are maintained. Axial images again show central disc protrusion at L5-S1 level but spinal canal is preserved. There i s calcification along the disc. Mild facet arthropathy bilaterally. Patent bilateral neural foramina. Minimal broad disc bulge at L4-L5 without significant central canal stenosis. Paraspinal muscle bulk is maintained. CAR CHANGER shunt catheter noted on the localizer. Left chest stimulator device identified on the localizer. Nonobstructive bilateral punctate renal calculi. IMPRESSION: 1. No acute fracture or dislocation in the lumbar spine. 2. Similar mild degenerative disc disease of the lower lumbar spine. No CT evidence for significant c entral canal or neural foramina stenosis.
== END | disposition home or self-care (01) ==
LOC: RADCTMAIN 10:17
PROVIDERS: ATTEND Psychiatry & Neurology Neurology
DX: Q07.00 Arnold-Chiari syndrome without spina bifida or hydrocephalus (principal); M47.812 Spondylosis without myelopathy or radiculopathy, cervical region; M47.816 Spondylosis without myelopathy or radiculopathy, lumbar region; M51.36 Other intervertebral disc degeneration, lumbar region; Z98.890 Other specified postprocedural states
CPT/HCPCS: 72125; 72131

== ENCOUNTER 2024-02-17 03:02 | Inpatient (IN) | payer MEDICARE, OTHER ==
[2024-02-17] MEDS: SODIUM CHLORIDE 0.9% 500 ML 500 ML IV STA (03:35)
[2024-02-17] MEDS: ETOMIDATE 2 MG/ML 10 ML VIAL IVP STA (03:38)
[2024-02-17] MEDS: SUCCINYLCHOLINE CHLORIDE 200 MG/10 ML VIAL IV STA (03:39)
[2024-02-17 03:42] LABS: Basophils % (A) 1 %; Eosinophils # (A) 0.6 k/uL (0-0.7); Eosinophils % (A) 7 %; HCT 45.6 % (39.0-53.0); HGB 15.5 gm/dL (13.0-17.5); Lymphocytes # (A) 1.8 k/uL (1.0-4.8); Lymphocytes % (A) 21 %; MCH 31.7 pg (25.0-35.0); MCHC 33.9 g/dL (31.0-37.0); MCV 93.4 fL (80.0-100.0); Mean Platelet Volume 7.6; Monocytes # (A) 0.4 k/uL (0-1.0); Monocytes % (A) 4 %; Neutrophils # (A) 5.8 k/uL (1.3-7.7); Neutrophils % (A) 67 %; Platelet Count 235 k/uL (150-450); RBC 4.88 m/uL (4.30-5.90); WBC 8.8 k/uL (3.8-10.6)
[2024-02-17 03:47] LABS: ALT 21 U/L (4-49); AST 20 U/L (17-59); Acetaminophen <10.0 ug/mL; African American GFR (CKD) >90 (>60 ml/min/1.73 sqM); Albumin 4.3 g/dL (3.5-5.0); Alkaline Phosphatase 58 U/L (38-126); Anion Gap -3 mmol/L; Blood Urea Nitrogen 21 mg/dL (9-20); Calcium 10.3 mg/dL (8.4-10.2); Carbon Dioxide 22 mmol/L (22-30); Chloride 115 mmol/L (98-107); Glucose 116 mg/dL (74-99); Non-African American GFR(CKD) >90 (>60 ml/min/1.73 sqM); Potassium 4.4 mmol/L (3.5-5.1); Salicylate <1.0 mg/dL; Sodium 134 mmol/L (137-145); Total Bilirubin 0.6 mg/dL (0.2-1.3); Total Protein 6.6 g/dL (6.3-8.2)
--- NOTE | 2024-02-17 03:50 | ED ---
Seizure HPI - General Chief Complaint: Seizure Stated Complaint: Seizure Time Seen by Provider: 02/17/24 03:12 Source: EMS Mode of arrival: EMS Limitations: altered mental status - History of Present Illness Initial Comments: This patient is a 28-year-old man with history of seizures who is brought by ambulance to have evaluation for altered mental status. The patient was reportedly found in his home unresponsive. He had reportedly gone to his bedro at 9 PM and was reportedly well at that time. EMS was called and when they got there they found patient was having generalized tonic-clonic seizure. Patient was administered Versed and the patient's seizure activity stopped. Patient not able to give any history on arrival. MD Complaint: seizure - Related Data Home Medications Medication Instructions Recorded Confirmed HYDROcodone/APAP 10-325MG [Carriere 1 tab PO TID 01/24/22 02/17/24 10-325] Albuterol Sulfate [Ventolin HFA] 2 puff INHALATION RT-Q4H PRN 01/20/23 02/17/24 Divalproex Sodium [Depakote] 500 mg PO BID 01/20/23 02/17/24 Divalproex [Depakote] 250 mg PO BID 01/20/23 02/17/24 Midazolam [Nayzilam] 5 mg NASAL DIRECTED PRN 01/20/23 02/17/24 Eslicarbazepine Acetate [Aptiom] 800 mg PO DAILY 02/17/24 02/17/24 Meclizine [Antivert] 12.5 mg PO TID PRN 02/17/24 02/17/24 Vitamin D3(Unknown Dose) 1 tab PO DAILY 02/17/24 02/17/24 Allergies Allergy/AdvReac Type Severity Reaction Status Date / Time methocarbamol [From Robaxin] Allergy Red Verified 02/17/24 09:22 Syndrome Penicillins Allergy Anaphylaxis Verified 02/17/24 09:22 levetiracetam [From Keppra] AdvReac Aggression Verified 02/17/24 09:22 Review of Systems ROS Statement: Those systems with pertinent positive or pertinent negative responses have been documented in the HPI. ROS Other: All systems not noted in ROS Statement are negative. Limitations: ROS unobtainable due to patients medical condition Past Medical History Past Medical History: Asthma, Hyperlipidemia, Seizure Disorder Additional Past Medical History / Comment(s): chiari malformation, ENVELOPE ADDRESSER shunt, History of Any Multi-Drug Resistant Organisms: MRSA Date of last positivie culture/infection: 07/29/19 MDRO Source:: MRSA HEAD Past Surgical History: Orthopedic Surgery Additional Past Surgical History / Comment(s): chiari malformation, VNS procedure 3/ Past Psychological History: No Psychological Hx Reported Smoking Status: Current every day smoker Past Alcohol Use History: Occasional Past Drug Use History: None Reported General Exam Limitations: altered mental status General appearance: obtunded Head exam: Present: atraumatic, normocephalic, other (There does appear to be ventricular shunt on the right side of the scalp) Eye exam: Present: normal appearance, PERRL. Absent: scleral icterus, conjunctival injection ENT exam: Present: normal oropharynx Neck exam: Present: normal inspection. Absent: tenderness, meningismus Respiratory exam: Present: rhonchi. Absent: respiratory distress, wheezes, ra les, stridor, accessory muscle use, decreased breath sounds, prolonged expiratory Cardiovascular Exam: Present: regular rate, normal rhythm, normal heart sounds. Absent: systolic murmur, diastolic murmur, rubs, gallop GI/Abdominal exam: Present: soft. Absent: distended, tenderness, guarding, rebound, rigid, mass Extremities exam: Present: normal inspection, normal capillary refill. Absent: pedal edema, calf tenderness Back exam: Present: normal inspection. Absent: CVA tenderness (R), CVA ten derness (L), vertebral tenderness Neurological exam: Present: altered, reflexes normal. Absent: motor sensory deficit Skin exam: Present: warm, dry, intact, normal color. Absent: rash Course Vital Signs 02/17/24 02/17/24 02/17/24 03:03 03:52 04:40 Temperature 98.2 F Pulse Rate 96 78 Respiratory 18 32 H Rate Blood Pressure 141/94 126/91 O2 Sat by Pulse 95 99 Oximetry Fraction of 100 Inspired Oxygen (FIO2) 02/17/24 02/17/24 02/17/24 04:47 05:00 05:30 Temperature Pulse Rate 77 72 Respiratory 24 24 Rate Blood Pressure 121/80 121/86 O2 Sat by Pulse 96 96 Oximetry Fraction of 40 Inspired Oxygen (FIO2) 02/17/24 02/17/24 02/17/24 06:00 06:30 07:00 Temperature Pulse Rate 77 75 73 Respiratory 23 21 21 Rate Blood Pressure 127/90 133/90 124/90 O2 Sat by Pulse 97 97 97 Oximetry Fraction of Inspired Oxygen (FIO2) 02/17/24 02/17/24 02/17/24 07:20 07:46 07:47 Temperature Pulse Rate 100 Respiratory 30 H Rate Blood Pressure 150/101 O2 Sat by Pulse 98 Oximetry Fraction of 40 40 Inspired Oxygen (FIO2) 02/17/24 02/17/24 08:00 08:15 Temperature 97.8 F Pulse Rate 90 Respiratory 16 Rate Blood Pressure 143/100 144/95 O2 Sat by Pulse 97 Oximetry Fraction of Inspired Oxygen (FIO2) Procedures - Intubation Sedative: Etomidate Paralytic: Succinylcholine Laryngoscope: Sean Size: 3 ET Tube Size: 8.5 ET Tube Uncuffed: No Tube Secured Depth (cm): 24 Tube Secured Location: teeth (2) Tube Placement Confirmation: visualized tube passing through cords, equal breath sounds bilaterally, no breath sounds over epigastrium, confirmation by capnometry Patient Tolerated Procedure: well, no complications Intubation Complications: none Additional Comments: Patient is intubated for airway protection Medical Decision Making - Medical Decision Making This patient is a 28-year-old man brought by EMS for altered mental status who was given Versed as he was having generalized tonic-clonic seizure on EMS arrival. The patient not able to give history. He does appear to be postictal. Patient's sister arrived to give additional history stating that he had been sleeping most of the day and they were not certain he had taken his anticonvulsant medication. In the department here, the patient began to have moderate amount of thin stomach content that he was vomiting. The patient was intubated for airway protection as he was having rhonchi and pooled secretions. The patient had chest x-ray that I interpreted as showing ET tube that was close to the stone and this was backed out approximately 2 cm. The patient had repeat chest x-ray that did show ET tube in more favorable position. No infiltrate, no pneumothorax, by my interpretation. Patient will be admitted to have neurology consultation. Case discussed with the admitting service. Case also discussed with pulmonology and treatment recommendations are incorporated. Was pt. sent in by a medical professional or institution (, PA, TRANSIT DEPARTMENT CLERK, urgent care, hospital, or penitentiary...) When possible be specific @ -[No] Did you speak to anyone other than the patient for history (EMS, parent, family, police, friend...)? What history was obtained from this source @ -[EMS Gave history Did you review nursing and triage notes (agree or disagree)? Why? @ -[I reviewed and agree with nursing and triage notes] Were old charts reviewed (outside hosp., previous admission, EMS record, old EKG, old radiological studies, urgent care reports/EKG's, penitentiary records)? Report findings @ - old charts were reviewed] Differential Diagnosis (chest pain, altered mental status, abdominal pain women, abdominal pain men, vaginal bleeding, weakness, fever, dyspnea, syncope, headache, dizziness, GI bleed, back pain, seizure, CVA, palpatations, mental health, musculoskeletal)? @ -[Differential Seizure: Recurrent seizure disorder, febrile seizure, alcohol withdrawal, stimulants, meningitis, encephalitis, intercranial hemorrhage, intracranial tumor, stroke, eclampsia, thyrotoxicosis, hypocalcemia, hyponatremia, hypernatremia, hypomag nesemia, psychogenic, this is not meant to be an all-inclusive list. EKG interpreted by me (3pts min.). @ -[I interpreted as above X-rays interpreted by me (1pt min.). @ -[Interpreted as above CT interpreted by me (1pt min.). @ - U/S interpreted by me (1pt. min.). @ -[None done] What testing was considered but not performed or refused? (CT, X-rays, U/S, labs)? Why? @ -[None] What meds were considered but not given or refused? Why? @ -[None] Did you discuss the management of the patient with other professionals (professionals i.e. , PA, TRANSIT DEPARTMENT CLERK, lab, RT, psych nurse, social services specialist, microbiology lab technician, teacher, property disposal officer, onsite case manager)? Give summary @ -[Case discussed with admitting physician and also with pulmonology, treatment recommendations incorporated Was smoking cessation discussed for >3mins.? @ -[No] Was critical care preformed (if so, how long)? @ -[yes, 35 minutes Were there social determinants of health that impacted care today? How? (Homelessness, low income, unemployed, alcoholism, drug addiction, transportation, low edu. Level, literacy, decrease access to med. care, senior care, rehab)? @ -[No] Was there de-escalation of care discussed even if they declined (Discuss DNR or withdrawal of care, Hospice)? DNR status @ -[No] What co-morbidities impacted this encounter? (DM, HTN, Smoking, COPD, CAD, Cancer, CVA, ARF, Chemo, Hep., AIDS, mental health diagnosis, sleep apnea, morbid obesity)? @ -[Seizure disorder Was patient admitted / discharged? Hospital course, mention meds given and route, prescriptions, significant lab abnormalities, going to OR and other pertinent info. @ -[Patient is admitted to have further neurology workup and treatment Undiagnosed new problem with uncertain prognosis? @ -[No] Drug Therapy requiring intensive monitoring for toxicity (Heparin, Nitro, Insulin, Cardizem)? @ -[Propofol Were any procedures done? @ -[Endotracheal intubation, see above Diagnosis/symptom? @ -[Acute tonic-clonic seizure Possible aspiration Acute, or Chronic, or Acute on Chronic? @ -[Acute on chronic Uncomplicated (without systemic symptoms) or Complicated (systemic symptoms)? @ -[Complicated by possible aspiration Side effects of treatment? @ -[No] Exacerbation, Progression, or Severe Exacerbation? @ -[No] Poses a threat to life or bodily function? How? (Chest pain, [place], [place], pneumonia, PE, COPD, DKA, ARF, appy, cholecystitis, CVA, Diverticulitis, Homicidal, Suicidal, threat to staff... and all critical care pts) @ -[yes - Lab Data Result diagrams: 02/17/24 03:28 02/17/24 03:28 Lab Results 02/17/24 02/17/24 02/17/24 Range/Units 03:28 03:28 03:28 WBC 8.8 (3.8-10.6) k/uL RBC 4.88 (4.30-5.90) m/uL Hgb 15.5 (13.0-17.5) gm/dL Hct 45.6 (39.0-53.0) % MCV 93.4 (80.0-100.0) fL MCH 31.7 (25.0-35.0) pg MCHC 33.9 (31.0-37.0) g/dL RDW 12.0 (11.5-15.5) % Plt Count 235 (150-450) k/uL MPV 7.6 Neutrophils % 67 % Lymphocytes % 21 % Monocytes % 4 % Eosinophils % 7 % Basophils % 1 % Neutrophils # 5.8 (1.3-7.7) k/uL Lymphocytes # 1.8 (1.0-4.8) k/uL Monocytes # 0.4 (0-1.0) k/uL Eosinophils # 0.6 (0-0.7) k/uL Basophils # 0.0 (0-0.2) k/uL Sample Site ABG pH (7.35-7.45) ABG pCO2 (35-45) mmHg ABG pO2 (83-108) mmHg ABG HCO3 (21-25) mmol/L ABG Total CO2 (19-24) mmol/L ABG O2 Saturation (94-97) % ABG Base Excess mmol/L Sukhwinder Test FiO2 % Sodium 134 L (137-145) mmol/L Potassium 4.4 (3.5-5.1) mmol/L Chloride 115 H (98-107) mmol/L Carbon Dioxide 22 (22-30) mmol/L Anion Gap -3 mmol/L BUN 21 H (9-20) mg/dL Creatinine 0.87 (0.66-1.25) mg/dL Est GFR (CKD-EPI)AfAm >90 (>60 ml/min/1.73 sqM) Est GFR (CKD-EPI)NonAf >90 (>60 ml/min/1.73 sqM) Glucose 116 H (74-99) mg/dL Plasma Lactic Acid Parvez 1.6 (0.7-2.0) mmol/L Calcium 10.3 H (8.4-10.2) mg/dL Magnesium 2.0 (1.6-2.3) mg/dL Total Bilirubin 0.6 (0.2-1.3) mg/dL AST 20 (17-59) U/L ALT 21 (4-49) U/L Alkaline Phosphatase 58 (38-126) U/L Total Protein 6.6 (6.3-8.2) g/dL Albumin 4.3 (3.5-5.0) g/dL Urine Color Urine Appearance (Clear) Urine pH (5.0-8.0) Ur Specific [place] (1.001-1.035) Urine Protein (Negative) Urine Glucose (UA) (Negative) Urine Ketones (Negative) Urine Blood (Negative) Urine Nitrite (Negative) Urine Bilirubin (Negative) Urine Urobilinogen (<2.0) mg/dL Ur Leukocyte Esterase (Negative) Urine RBC (0-5) /hpf Urine WBC (0-5) /hpf Urine Bacteria (None) /hpf Urine Mucus (None) /hpf Salicylates <1.0 mg/dL Urine Opiates Screen (NotDetected) Ur Oxycodone Screen (NotDetected) Urine Methadone Screen (NotDetected) Acetaminophen <10.0 ug/mL Ur Barbiturates Screen (NotDetected) U Tricyclic Antidepress (NotDetected) Ur Phencyclidine Scrn (NotDetected) Ur Amphetamines Screen (NotDetected) U Methamphetamines Scrn (NotDetected) U Benzodiazepines Scrn (NotDetected) Urine Cocaine Screen (NotDetected) U Marijuana (THC) Screen (NotDetected) 02/17/24 02/17/24 02/17/24 Range/Units 03:43 03:43 04:25 WBC (3.8-10.6) k/uL RBC (4.30-5.90) m/uL Hgb (13.0-17.5) gm/dL Hct (39.0-53.0) % MCV (80.0-100.0) fL MCH (25.0-35.0) pg MCHC (31.0-37.0) g/dL RDW (11.5-15.5) % Plt Count (150-450) k/uL MPV Neutrophils % % Lymphocytes % % Monocytes % % Eosinophils % % Basophils % % Neutrophils # (1.3-7.7) k/uL Lymphocytes # (1.0-4.8) k/uL Monocytes # (0-1.0) k/uL Eosinophils # (0-0.7) k/uL Basophils # (0-0.2) k/uL Sample Site rrad ABG pH 7.47 H (7.35-7.45) ABG pCO2 30 L (35-45) mmHg ABG pO2 >420 H (83-108) mmHg ABG HCO3 21 (21-25) mmol/L ABG Total CO2 22 (19-24) mmol/L ABG O2 Saturation 100.4 H (94-97) % ABG Base Excess -1.1 mmol/L Sukhwinder Test Yes FiO2 100 % Sodium (137-145) mmol/L Potassium (3.5-5.1) mmol/L Chloride (98-107) mmol/L Carbon Dioxide (22-30) mmol/L Anion Gap mmol/L BUN (9-20) mg/dL Creatinine (0.66-1.25) mg/dL Est GFR (CKD-EPI)AfAm (>60 ml/min/1.73 sqM) Est GFR (CKD-EPI)NonAf (>60 ml/min/1.73 sqM) Glucose (74-99) mg/dL Plasma Lactic Acid Parvez (0.7-2.0) mmol/L Calcium (8.4-10.2) mg/dL Magnesium (1.6-2.3) mg/dL Total Bilirubin (0.2-1.3) mg/dL AST (17-59) U/L ALT (4-49) U/L Alkaline Phosphatase (38-126) U/L Total Protein (6.3-8.2) g/dL Albumin (3.5-5.0) g/dL Urine Color Colorless Urine Appearance Cloudy (Clear) Urine pH 8.5 H (5.0-8.0) Ur Specific [place] 1.012 (1.001-1.035) Urine Protein Trace H (Negative) Urine Glucose (UA) Negative (Negative) Urine Ketones Negative (Negative) Urine Blood Negative (Negative) Urine Nitrite Negative (Negative) Urine Bilirubin Negative (Negative) Urine Urobilinogen <2.0 (<2.0) mg/dL Ur Leukocyte Esterase Negative (Negative) Urine RBC <1 (0-5) /hpf Urine WBC 2 (0-5) /hpf Urine Bacteria Rare H (None) /hpf Urine Mucus Rare H (None) /hpf Salicylates mg/dL Urine Opiates Screen Detected H (NotDetected) Ur Oxycodone Screen Not Detected (NotDetected) Urine Methadone Screen Not Detected (NotDetected) Acetaminophen ug/mL Ur Barbiturates Screen Not Detected (NotDetected) U Tricyclic Antidepress Not Detected (NotDetected) Ur Phencyclidine Scrn Not Detected (NotDetected) Ur Amphetamines Screen Not Detected (NotDetected) U Methamphetamines Scrn Not Detected (NotDetected) U Benzodiazepines Scrn Not Detected (NotDetected) Urine Cocaine Screen Not Detected (NotDetected) U Marijuana (THC) Screen Not Detected (NotDetected) - EKG Data -: EKG Interpreted by Me EKG shows normal: sinus rhythm, axis, intervals, QRS complexes, ST-T waves Rate: normal (Rate 78 bpm) Disposition Clinical Impression: Epileptic seizure, generalized Disposition: ADMITTED IP TO THIS HOSP Condition: Fair Is patient prescribed a controlled substance at d/c from ED?: No
[2024-02-17 04:40] LABS: ABG Base Excess -1.1 mmol/L; ABG HCO3 21 mmol/L (21-25); ABG Oxygen Saturation 100.4 % (94-97); ABG PCO2 30 mmHg (35-45); ABG PH 7.47 (7.35-7.45); ABG TCO2 22 mmol/L (19-24); Allen Test Performed? Yes
[2024-02-17 04:41] LABS: ABG PO2 >420 mmHg (83-108)
--- NOTE | 2024-02-17 05:10 | XR ---
EXAMINATION TYPE: XR chest 1V confirm line [facility] DATE OF EXAM: 02/17/2024 COMPARISON: Chest x-ray January 24, 2022 HISTORY: Intubation TECHNIQUE: 2 frontal views of the chest are obtained. FINDINGS: There is endotracheal tube extending into right mainstem bronchus and should be retracted. There is right sided catheter redemonstrated. Lungs remain clear. The cardiac silhouette size remain s within normal limits. The osseous structures are intact. IMPRESSION: Low-lying endotracheal tube needs to be retracted. No suspicious acute pulmonary process .
--- NOTE | 2024-02-17 05:12 | XR ---
EXAMINATION TYPE: XR chest 1V DATE OF EXAM: 02/17/2024 COMPARISON: Chest x-ray earlier today HISTORY: ET tube revision. TECHNIQUE: Single frontal view of the chest is obtained. FINDINGS: Endotracheal tube is now terminating just above the aortic knob approximately 2 to 3 cm abo ve the stone. There is an orogastric tube projecting below diaphragm. Stable right neck catheter. Irish ngs remain clear without pneumothorax. Cardiac silhouette size remains within normal limits. Overlyin g pacemaker device is present The osseous structures are intact. IMPRESSION: Satisfactory positioning of endotracheal tube after repositioning. Satisfactory position ing of new orogastric tube. No acute pulmonary process.
--- NOTE | 2024-02-17 05:16 | CT ---
EXAMINATION TYPE: CT brain wo con DATE OF EXAM: 02/17/2024 COMPARISON: Prior CT January 20, 2023 HISTORY: Seizure CT DLP: 1193 mGycm. Automated Exposure Control for Dose Reduction was Utilized. TECHNIQUE: CT scan of the head is performed without contrast. FINDINGS: Persistent right-sided [employer] shunt catheter terminating near the midline There is no acute i ntracranial hemorrhage or midline shift identified. Ventricles remain slitlike. Hopson-white matter fru stration fairly well maintained. The globes are intact and the visualized sinuses are clear. Endotra cheal tube is partially imaged. IMPRESSION: No acute intracranial hemorrhage or midline shift is seen. [employer] shunt catheter remains pre sent with slitlike ventricles similar to prior. Correlate for over shunting.
[2024-02-17 06:23] LABS: Appearance,Urine Cloudy (Clear); Bacteria,Urine Rare /hpf; Bilirubin,Urine Negative (Negative); Blood,Urine Negative (Negative); Color,Urine Colorless; Glucose,Urine (UA) Negative (Negative); Ketones,Urine Negative (Negative); Leukocyte Esterase,Urine Negative (Negative); Mucus,Urine Rare /hpf; Nitrite,Urine Negative (Negative); PH, Urine 8.5 (5.0-8.0); Protein,Urine Trace (Negative); RBC,Urine <1 /hpf (0-5); Specific Gravity,Urine 1.012 (1.001-1.035); Urobilinogen,Urine <2.0 mg/dL (<2.0); WBC,Urine 2 /hpf (0-5)
[2024-02-17 06:26] LABS: Amphetamine Screen,Urine Not Detected (NotDetected); Barbiturate Screen,Urine Not Detected (NotDetected); Benzodiazepines Screen,Urine Not Detected (NotDetected); Cocaine Screen,Urine Not Detected (NotDetected); Methadone Screen, Urine Not Detected (NotDetected); Opiate Screen,Urine Detected (NotDetected); Oxycodone Screen, Urine Not Detected (NotDetected); Phencyclidine Screen,Urine Not Detected (NotDetected); Tricyclic Antidepressant,Urine Not Detected (NotDetected); Urn Cannabinoid Scrn Not Detected (NotDetected)
[2024-02-17] MEDS ORDERED: NALOXONE 0.4 MG/ML 1 ML VIAL IV PRN (06:52)
[2024-02-17] MEDS ORDERED: ACETAMINOPHEN SUPPOSITORY 650 MG SUPP RECTAL PRN (06:52)
[2024-02-17] MEDS: SODIUM CHLORIDE 0.9% 1,000 ML IV SCH (08:21)
[2024-02-17] MEDS: FAMOTIDINE 20 MG/2 ML VIAL IV SCH (08:22)
[2024-02-17 09:10] LABS: Glucose,Whole Blood 92 mg/dL (70-110)
[2024-02-17] MEDS: LACOSAMIDE 150 MG TABLET PO SCH (09:59)
[2024-02-17] MEDS: LACOSAMIDE 50 MG TABLET PO SCH (09:59)
[2024-02-17] MEDS: DIVALPROEX 500 MG TABLET.DR PO SCH (10:00)
[2024-02-17] MEDS: DIVALPROEX 250 MG TABLET.DR PO SCH (10:00)
--- NOTE | 2024-02-17 10:24 | P.CNPUL ---
History of Present Illness Consult date: 02/17/24 Requesting physician: Michaela Easley Reason for consult: other Chief complaint: Status epilepticus, respiratory failure. History of present illness: Pulmonary consult dated February 17, 2024. 28-year-old male with a history of seizure disorder, and Chiari malformation. According to family members, the patient was brought into the emergency department, by EMS, for seizure disorder. He apparently was found in his bedroom, having a seizure. He was unresponsive. The EMS personnel gave him s ome Versed, and he was apparently found to have tonic-clonic seizure activity. Upon arrival, he is evaluated in the emergency room, and apparently was vomiting up some thick material, so the ER physician decided to intubate the patient, for airway protection. We saw the patient this morning, in the emergency department, trauma 1 room. He was on volume assist-control, rate 18, tidal volume 450, FiO2 40%, PEEP of 5. He was receiving propofol at 40 mcg/kg/min. He apparently does have a history of seizure disorder, and he does smoke, but does not drink. He does not vape. He does smoke marijuana. He had his ventriculoperitoneal shunt placed in 2018. Labs include a white count 8.8, hemoglobin 15.5, hematocrit 45.6, and a platelet count of 235,000. Blood gases showed a pO2 of greater than 420, pCO2 of 30, and a pH of 7.47. Sodium 134, potassium 4.4, chlorides 115, carbon dioxide 22, BUN 21, and creatinine 0.87. Calcium is 10.3. Urine is colorless, and cloudy. pH is 8.5. There is rare bacteria. Drug screen was positive for opiates, but negative for everything else. The chest x-ray shows a properly placed endotracheal tube, and NG tube, but no acute infiltrate or abnormality. Review of Systems REVIEW OF SYSTEMS: CONSTITUTIONAL: [Negative.] NEUROLOGIC: Seizure. HEENT: [ Negative.] CARDIAC: [Negative.] PULMONARY: [Negative.] GI: [Negative.] : [Negative.] RHEUMATOLOGIC: [ Negative.] IMMUNOLOGIC: [ Negative.] ENDOCRINE: [Negative. ] DERMATOLOGIC: [Negative.] Past Medical History Past Medical History: Asthma, Hyperlipidemia, Seizure Disorder Additional Past Medical History / Comment(s): chiari malformation, [employer] shunt, History of Any Multi-Drug Resistant Organisms: MRSA Date of last positivie culture/infection: 07/29/19 MDRO Source:: MRSA HEAD Past Surgical History: Orthopedic Surgery Additional Past Surgical History / Comment(s): chiari malformation, VNS procedure 3/ Past Anesthesia/Blood Transfusion Reactions: Unable to Obtain Past Psychological History: No Psychological Hx Reported Smoking Status: Current every day smoker Past Alcohol Use History: Occasional Past Drug Use History: None Reported Medications and Allergies Home Medications Medication Instructions Recorded Confirmed Type HYDROcodone/APAP 10-325MG [[place] 1 tab PO TID 01/24/22 02/17/24 History 10-325] Albuterol Sulfate [Ventolin HFA] 2 puff INHALATION RT-Q4H PRN 01/20/23 02/17/24 History Divalproex Sodium [Depakote] 500 mg PO BID 01/20/23 02/17/24 History Divalproex [Depakote] 250 mg PO BID 01/20/23 02/17/24 History Midazolam [Nayzilam] 5 mg NASAL DIRECTED PRN 01/20/23 02/17/24 History Eslicarbazepine Acetate [Aptiom] 800 mg PO DAILY 02/17/24 02/17/24 History Meclizine [Antivert] 12.5 mg PO TID PRN 02/17/24 02/17/24 History Vitamin D3(Unknown Dose) 1 tab PO DAILY 02/17/24 02/17/24 History Allergies Allergy/AdvReac Type Severity Reaction Status Date / Time methocarbamol [From Robaxin] Allergy Red Verified 02/17/24 09:22 Syndrome Penicillins Allergy Anaphylaxis Verified 02/17/24 09:22 levetiracetam [From Keppra] AdvReac Aggression Verified 02/17/24 09:22 Physical Exam Osteopathic Statement: *. No significant issues noted on an osteopathic structural exam other than those noted in the History and Physical/Consult. Vitals: Vital Signs Temp Pulse Resp BP Pulse Ox FiO2 02/17/24 10:00 71 22 122/87 99 02/17/24 09:30 97.7 F 21 127/88 99 40 02/17/24 09:00 40 02/17/24 08:15 144/95 02/17/24 08:00 97.8 F 90 16 143/100 97 02/17/24 07:47 40 02/17/24 07:46 40 02/17/24 07:20 100 30 H 150/101 98 02/17/24 07:00 73 21 124/90 97 02/17/24 06:30 75 21 133/90 97 02/17/24 06:00 77 23 127/90 97 02/17/24 05:30 72 24 121/86 96 02/17/24 05:00 77 24 121/80 96 02/17/24 04:47 40 02/17/24 04:40 78 32 H 126/91 99 02/17/24 03:52 100 02/17/24 03:03 98.2 F 96 18 141/94 95 Intake and Output 02/16/24 02/17/24 02/17/24 22:59 06:59 14:59 Intake Total 8.945 85.247 Balance 8.945 85.247 Intake: Intake, IV Titration 8.945 85.247 Amount propofoL 1,000 mg In 8.945 85.247 Empty Bag 1 bag @ 15 MCG/ KG/MIN 6.94 mls/hr IV . [id number] [facility] Rx#:[id number] Other: Voiding Method Indwelling Catheter Weight 77.111 kg 77.111 kg No acute distress, stated, with an orally placed endotracheal tube and NG tube. HEENT examination is grossly unremarkable. Neck supple. Full range of motion. No adenopathy thyromegaly or neck vein distention. Cardiovascular examination reveals regular rhythm rate. S1-S2 normal. No S3 or S4. No discernible murmur noted. Heart rate 71 bpm. Lungs reveal clear breath sounds. Breath sounds are equal bilaterally. No adventitious lung sounds including wheezes rhonchi or crackles. Abdomen soft without bowel sounds. No masses or tenderness. Extremities are intact. No cyanosis clubbing or edema. Skin is without rash or lesion. Neurologic examination not be evaluated at this time. Results - Laboratory Findings CBC and BMP: 02/17/24 03:28 02/17/24 03:28 ABG ABG pH 7.47 (7.35-7.45) H 02/17/24 04:25 ABG pCO2 30 mmHg (35-45) L 02/17/24 04:25 ABG pO2 >420 mmHg (83-108) H 02/17/24 04:25 ABG O2 Saturation 100.4 % (94-97) H 02/17/24 04:25 Abnormal lab findings: Abnormal Labs 02/17/24 02/17/24 02/17/24 03:28 03:43 03:43 ABG pH ABG pCO2 ABG pO2 ABG O2 Saturation Sodium 134 L Chloride 115 H BUN 21 H Glucose 116 H Calcium 10.3 H Urine pH 8.5 H Urine Protein Trace H Urine Bacteria Rare H Urine Mucus Rare H Urine Opiates Screen Detected H 02/17/24 04:25 ABG pH 7.47 H ABG pCO2 30 L ABG pO2 >420 H ABG O2 Saturation 100.4 H Sodium Chloride BUN Glucose Calcium Urine pH Urine Protein Urine Bacteria Urine Mucus Urine Opiates Screen - Diagnostic Findings Chest x-ray: image reviewed Assessment and Plan Assessment: Acute seizure, intubated for airway protection, on February 17, 2024. History of chronic seizure disorder. History of Chiari malformation, status post ventriculoperitoneal shunt, 2018. History of chronic bronchial asthma. History of hyperlipidemia. Prior history of methicillin-resistant Staph aureus infection. History of ongoing tobacco use with nicotine addiction. Plan: Plan dated February 17, 2024. The patient will be admitted to the intensive care unit. We will await the patient up, and put the patient on pressure support and CPAP, and see if he is ready to be weaned and extubated. Will get a full set of weaning parameters including a spontaneous tidal volume, spontaneous vital capacity, negative inspiratory force, respiratory rate, minute ventilation, rapid shallow breathing index, and cuff leak. Labs, x-rays, and medications are reviewed. The patient will be seen by neurology. No additional recommendations are made. The patient typically sees a nurse practitioner Dr. Jones office. He apparently recently was given an appointment to see a neurologist, but has not seen the neurologist as yet. In addition, he may not have been taking his seizure medication, before this episode. Time with Patient: Greater than 30
[2024-02-17] MEDS: VALPROIC ACID ORAL SOLN 250 MG/5 ML CUP PO SCH (11:06)
--- NOTE | 2024-02-17 11:30 | P.CNNES ---
History of Present Illness Consult date: 02/17/24 Requesting physician: Jeff Franklin Reason for Consult: Seizure History of Present Illness: Patient is a 28-year-old male came to the hospital by ambulance early this morning at 3:02 AM for seizures. As per electronic records, patient was well at 9 PM, and when they saw patient around 2:30 AM, he was having a seizure. Patient's mother and sister were present, who provided the history. Patient has history of Chiari malformation for which he underwent suboccipital craniectomy about 5 years ago. He subsequently developed hydrocephalus for which shunt was placed by Dr. Brooklyn Bui at [facility] in [facility]. Patient's family mentions that he had 5 brain surgeries, as the shunt kept on breaking and once it was infected with MRSA and required revision of the shunt. Patient started having seizures 3 years ago. Patient has multiple brain scans done over years, which shows slitlike ventricles possible over shunting, but he has not seen neurosurgeon for last couple years. Patient has history of falls since shunt placement, but his frequency of falls got worse in the last couple weeks. Patient's mother states that he is falling a lot, hard to focus, has developed visual disturbance, not able to see in the last couple weeks. He is sleeping a lot, more shaky, short-term memory loss, having increased frequency of seizures, vomiting with no energy. He is having hallucinations, as he would be trying to smoke a cigarette although there is nothing in his hand. The symptoms have got worse in the last 2 weeks. Patient has history of VNS placement in May 2022, which was infected and was removed within couple weeks. The VNS was then replaced on 06/17/2023. Patient follows up with Dr. Dc. They mentioned that they were told that he had about 350 seizures on 02/01/2024 and 125 seizures on the . This was per report from "[facility]". Patient has an appointment with his neurosurgeon on 03/26/2024. He has not seen a neurosurgeon for last 2 years. As per EMS flowsheet, when they arrived, patient was laying in the bed. Patient was unconscious, unresponsive with snoring respiration. Patient's friend on the scene states that patient was last seen normal around 9 PM this evening. Patient's friend states that she is unsure if patient has diagnosis of seizure history. Unknown on drug use. Patient's pupils were dilated, nonreactive to light. Patient began with seizure activity. Patient was given Versed 5 mg slow IV push. Seizure activity discontinued. Patient remained unconscious, unresponsive. Physical examination revealed large hematoma to the right side of patient's head. Patient's vitals at the scene was blood pressure 107/72, pulse rate 84, respiration 12, saturation 92%. Patient was intubated in the ER. Patient is currently on propofol 45 mcg/g/min. Patient has not had any more seizures. Vital signs on arrival blood pressure 141/94 pulse rate 96 temperature 98.2. Patient has been afebrile. Blood test shows normal CBC, sodium 134 potassium 4.4, normal renal, hepatic panel. Calcium 10.3. UA negative. Urine drug screen positive for opiate. Depakote level 60. ABG shows pH of 7.47, pCO2 30. EKG showed sinus rhythm. CT head showed no acute intracranial hemorrhage or midline shift. [employer] shunt catheter remains present with slitlike ventricles similar to prior. Correlate for over shunting. Chest x-ray showed satisfactory position of endotracheal tube after repositioning. No acute process. Patient had a brain MRI on 09/14/2021 which revealed stable appearance of ventricular system with known right-sided [employer] shunt catheter. Correlate clinically to exclude over shunting. Improved paranasal sinus disease noted, otherwise no significant change from prior MRI. I personally reviewed CT head, agree with the findings. Medications include Clifford, midazolam 5 mg nasal spray, Depakote 750 mg twice daily, Aptiom 800 mg daily and meclizine. Vitamin D3. Patient has history of smoking 1 pack/day for 10 years. He smokes marijuana. No alcohol use. Review of Systems Other review of systems as per HPI. ROS unobtainable: due to endotracheal tube, due to mental status Past Medical History Past Medical History: Asthma, Hyperlipidemia, Seizure Disorder Additional Past Medical History / Comment(s): chiari malformation, [employer] shunt, History of Any Multi-Drug Resistant Organisms: MRSA Date of last positivie culture/infection: 07/29/19 MDRO Source:: MRSA HEAD Past Surgical History: Orthopedic Surgery Additional Past Surgical History / Comment(s): chiari malformation, VNS procedure 3/ Past Psychological History: No Psychological Hx Reported Smoking Status: Current every day smoker Past Alcohol Use History: Occasional Past Drug Use History: None Reported Medications and Allergies Home Medications Medication Instructions Recorded Confirmed Type HYDROcodone/APAP 10-325MG [[place] 1 tab PO TID 01/24/22 02/17/24 History 10-325] Albuterol Sulfate [Ventolin HFA] 2 puff INHALATION RT-Q4H PRN 01/20/23 02/17/24 History Divalproex Sodium [Depakote] 500 mg PO BID 01/20/23 02/17/24 History Divalproex [Depakote] 250 mg PO BID 01/20/23 02/17/24 History Midazolam [Nayzilam] 5 mg NASAL DIRECTED PRN 01/20/23 02/17/24 History Eslicarbazepine Acetate [Aptiom] 800 mg PO DAILY 02/17/24 02/17/24 History Meclizine [Antivert] 12.5 mg PO TID PRN 02/17/24 02/17/24 History Vitamin D3(Unknown Dose) 1 tab PO DAILY 02/17/24 02/17/24 History Allergies Allergy/AdvReac Type Severity Reaction Status Date / Time methocarbamol [From Robaxin] Allergy Red Verified 02/17/24 09:22 Syndrome Penicillins Allergy Anaphylaxis Verified 02/17/24 09:22 levetiracetam [From Keppra] AdvReac Aggression Verified 02/17/24 09:22 Physical Examination - Vital Signs Vital Signs: Vital Signs Temp Pulse Resp BP Pulse Ox FiO2 02/17/24 10:00 71 22 122/87 99 02/17/24 09:30 97.7 F 21 127/88 99 40 02/17/24 09:00 40 02/17/24 08:15 144/95 02/17/24 08:00 97.8 F 90 16 143/100 97 02/17/24 07:47 40 02/17/24 07:46 40 02/17/24 07:20 100 30 H 150/101 98 02/17/24 07:00 73 21 124/90 97 02/17/24 06:30 75 21 133/90 97 02/17/24 06:00 77 23 127/90 97 02/17/24 05:30 72 24 121/86 96 02/17/24 05:00 77 24 121/80 96 02/17/24 04:47 40 02/17/24 04:40 78 32 H 126/91 99 02/17/24 03:52 100 02/17/24 03:03 98.2 F 96 18 141/94 95 Intake and Output 02/16/24 02/17/24 02/17/24 22:59 06:59 14:59 Intake Total 8.945 85.247 Balance 8.945 85.247 Intake: Intake, IV Titration 8.945 85.247 Amount propofoL 1,000 mg In 8.945 85.247 Empty Bag 1 bag @ 15 MCG/ KG/MIN 6.94 mls/hr IV . [id number] [facility] Rx#:[id number] Other: Voiding Method Indwelling Catheter Weight 77.111 kg Patient is a young male, who is intubated, sedated. Patient is on propofol 45 mcg/kg/min. No obvious seizure-like activity noted. Patient is not responding to calling his name loudly, or with painful stimuli. Patient has an elliptical lump over the right parietal region, from previous shunt. Per patient's mother and sister, it has become increased in size just recently. On cranial nerve examination, pupils are equal, round and reacting to light, oculocephalics are slightly present. Visual dixon cannot be tested. No obvious nystagmus noted in the primary gaze. The gaze is conjugate. Face is symmetric. Patient is breathing over the ventilator. Patient does have a gag and cough. On muscle strength testing, patient is responding to painful stimuli. Deep tendon reflexes are very diminished to absent and plantars are upgoing bilaterally. Sensory to touch or pinprick, patient not responding. Cerebellar function cannot be assessed. Tone is equal bilaterally. Bulk of muscles normal. Gait deferred.. On general examination, there is no carotid bruit or murmur, S1-S2 audible. Chest is clear on consultation. Abdomen is soft nontender. No organomegaly, bowel sounds present. Peripheral pulses are present. No peripheral edema. Results - Laboratory Findings CBC and BMP: 02/17/24 03:28 02/17/24 03:28 Abnormal Lab Findings: Abnormal Labs 02/17/24 02/17/24 02/17/24 03:28 03:43 03:43 ABG pH ABG pCO2 ABG pO2 ABG O2 Saturation Sodium 134 L Chloride 115 H BUN 21 H Glucose 116 H Calcium 10.3 H Urine pH 8.5 H Urine Protein Trace H Urine Bacteria Rare H Urine Mucus Rare H Urine Opiates Screen Detected H 02/17/24 04:25 ABG pH 7.47 H ABG pCO2 30 L ABG pO2 >420 H ABG O2 Saturation 100.4 H Sodium Chloride BUN Glucose Calcium Urine pH Urine Protein Urine Bacteria Urine Mucus Urine Opiates Screen Assessment and Plan Assessment: * 28-year-old male with history of seizure disorder, came with seizure with postictal state. Patient intubated, sedated, no further seizures noted. * History of Chiari malformation, status post decompressive surgery 5 years ago, followed by ventriculoperitoneal shunt placement. Patient had multiple ventriculoperitoneal shunt revision over years, because of malfunction or infection. * Seizure disorder for last 3 years, medically intractable. * VNS placement 06/17/2024. * Rule out shunt malfunction, vs shunt over function. CT head showed slit ventricles, concerning for over shunting. Patient has clinically got worse over the last 2 weeks with significantly decreased vision, frequent falls, short-term memory loss, excessive somnolence and hallucinations. Family has noticed increased prominence of the bulge in the scalp over the shunt, concerning for shunt malfunction. * Hyperlipidemia * History of MRSA infections * Tobacco use * Marijuana use Plan: * Patient needs urgent neurosurgical consultation to evaluate for shunt malfunction due to the reasons mentioned above. Recommend patient to be transferred to higher level of care for neurosurgical evaluation. * Stat EEG. Discussed with technician support engineer. Patient perhaps needs a continuous EEG monitoring to evaluate for subclinical seizures. * Continue current dose of Depakote, Aptiom. Depakote level is therapeutic 60.1. * Patient currently on propofol 45 mcg/kg/min. Patient does not appear ready for extubation. * Neurology will follow. Discussed with patient's family in detail and also with the nursing staff. * Patient's family agreement with transfer to higher level of care. * Thank you for the consultation. Time with Patient: Greater than 30
[2024-02-17 16:45] VITALS: PULSE 65; TEMP 97.9
--- NOTE | 2024-02-17 17:09 | P.HPIM ---
History of Present Illness H&P Date: 02/17/24 Chief Complaint: Altered mental status 28-year-old male came to the hospital by ambulance early this morning at 3:02 AM for seizures. Patient's mother and sister were present, who provided the history. Patient has history of Chiari malformation for which he underwent suboccipital craniectomy about 5 years ago. He subsequently developed hydrocephalus for which shunt was placed by Dr. Brooklyn Bui at [facility] in [facility]. Patient's family mentions that he had 5 brain surgeries, as the shunt kept on breaking and once it was infected with MRSA and required revision of the shunt. Patient started having seizures 3 years ago. He is sleeping a lot, more shaky, short-term memory loss, having increased frequency of seizures, vomiting with no energy. He is having hallucinations, as he would be trying to smoke a cigarette although there is nothing in his hand. The symptoms have got worse in the last 2 weeks. As per EMS flowsheet, when they arrived, patient was laying in the bed. Patient was unconscious, unresponsive with snoring respiration. Patient's friend on the scene states that patient was last seen normal around 9 PM this evening. Patient's friend states that she is unsure if patient has diagnosis of seizure history. Unknown on drug use. Patient's pupils were dilated, nonreactive to light. Patient began with seizure activity. Patient was given Versed 5 mg slow IV push. Seizure activity discontinued. Patient remained unconscious, unresponsive. Physical examination revealed large hematoma to the right side of patient's head. Patient's vitals at the scene was blood pressure 107/72, pulse rate 84, respiration 12, saturation 92%. Patient was intubated in the ER. Patient is currently on propofol 45 mcg/g/min. Patient has not had any more seizures. Review of Systems ROS unobtainable: due to mental status Past Medical History Past Medical History: Asthma, Hyperlipidemia, Seizure Disorder Additional Past Medical History / Comment(s): chiari malformation, BOOKING MANAGER shunt, History of Any Multi-Drug Resistant Organisms: MRSA Date of last positivie culture/infection: 07/29/19 MDRO Source:: MRSA HEAD Past Surgical History: Orthopedic Surgery Additional Past Surgical History / Comment(s): chiari malformation, VNS procedure 3/ Past Psychological History: No Psychological Hx Reported Smoking Status: Current every day smoker Past Alcohol Use History: Occasional Past Drug Use History: None Reported Medications and Allergies Home Medications Medication Instructions Recorded Confirmed Type HYDROcodone/APAP 10-325MG [Lester 1 tab PO TID 01/24/22 02/17/24 History 10-325] Albuterol Sulfate [Ventolin HFA] 2 puff INHALATION RT-Q4H PRN 01/20/23 02/17/24 History Divalproex Sodium [Depakote] 500 mg PO BID 01/20/23 02/17/24 History Divalproex [Depakote] 250 mg PO BID 01/20/23 02/17/24 History Midazolam [Nayzilam] 5 mg NASAL DIRECTED PRN 01/20/23 02/17/24 History Eslicarbazepine Acetate [Aptiom] 800 mg PO DAILY 02/17/24 02/17/24 History Meclizine [Antivert] 12.5 mg PO TID PRN 02/17/24 02/17/24 History Vitamin D3(Unknown Dose) 1 tab PO DAILY 02/17/24 02/17/24 History Allergies Allergy/AdvReac Type Severity Reaction Status Date / Time methocarbamol [From Robaxin] Allergy Red Verified 02/17/24 09:22 Syndrome Penicillins Allergy Anaphylaxis Verified 02/17/24 09:22 levetiracetam [From Keppra] AdvReac Aggression Verified 02/17/24 09:22 Physical Exam Vitals: Vital Signs Temp Pulse Resp BP Pulse Ox FiO2 02/17/24 09:00 40 02/17/24 08:15 144/95 02/17/24 08:00 97.8 F 90 16 143/100 97 02/17/24 07:47 40 02/17/24 07:46 40 02/17/24 07:20 100 30 H 150/101 98 02/17/24 07:00 73 21 124/90 97 02/17/24 06:30 75 21 133/90 97 02/17/24 06:00 77 23 127/90 97 02/17/24 05:30 72 24 121/86 96 02/17/24 05:00 77 24 121/80 96 02/17/24 04:47 40 02/17/24 04:40 78 32 H 126/91 99 02/17/24 03:52 100 02/17/24 03:03 98.2 F 96 18 141/94 95 Intake and Output 02/16/24 02/17/24 02/17/24 22:59 06:59 14:59 Intake Total 8.945 85.247 Balance 8.945 85.247 Intake: Intake, IV Titration 8.945 85.247 Amount propofoL 1,000 mg In 8.945 85.247 Empty Bag 1 bag @ 15 MCG/ KG/MIN 6.94 mls/hr IV . [id number] [facility] Rx#:[id number] Other: Voiding Method Indwelling Catheter Weight 77.111 kg Patient is currently intubated and mechanically ventilated HEENT examination is grossly unremarkable. Neck supple. Full range of motion. No adenopathy thyromegaly or neck vein distention. Cardiovascular examination reveals regular rhythm rate. S1-S2 normal. No S3 or S4. No discernible murmur noted. Heart rate 71 bpm. Lungs reveal clear breath sounds. Breath sounds are equal bilaterally. No adventitious lung sounds including wheezes rhonchi or crackles. Abdomen soft without bowel sounds. No masses or tenderness. Extremities are intact. No cyanosis clubbing or edema. Skin is without rash or lesion. Neurologic examination not be evaluated at this time. Results CBC & Chem 7: 02/17/24 03:28 02/17/24 03:28 Labs: Abnormal Lab Results - Last 24 Hours (Table) 02/17/24 02/17/24 02/17/24 Range/Units 03:28 03:43 03:43 ABG pH (7.35-7.45) ABG pCO2 (35-45) mmHg ABG pO2 (83-108) mmHg ABG O2 Saturation (94-97) % Sodium 134 L (137-145) mmol/L Chloride 115 H (98-107) mmol/L BUN 21 H (9-20) mg/dL Glucose 116 H (74-99) mg/dL Calcium 10.3 H (8.4-10.2) mg/dL Urine pH 8.5 H (5.0-8.0) Urine Protein Trace H (Negative) Urine Bacteria Rare H (None) /hpf Urine Mucus Rare H (None) /hpf Urine Opiates Screen Detected H (NotDetected) 02/17/24 Range/Units 04:25 ABG pH 7.47 H (7.35-7.45) ABG pCO2 30 L (35-45) mmHg ABG pO2 >420 H (83-108) mmHg ABG O2 Saturation 100.4 H (94-97) % Sodium (137-145) mmol/L Chloride (98-107) mmol/L BUN (9-20) mg/dL Glucose (74-99) mg/dL Calcium (8.4-10.2) mg/dL Urine pH (5.0-8.0) Urine Protein (Negative) Urine Bacteria (None) /hpf Urine Mucus (None) /hpf Urine Opiates Screen (NotDetected) Assessment and Plan Assessment: 1. Intractable seizures; status postintubation for airway protection --Patient has history of chronic seizure disorder -Currently on Depakote and Aptiom 800 mg daily -Neurology and intensive care on board 2. Hydrocephalus; status post BOOKING MANAGER shunt -- CT of the head completed in ED reveals slight ventricles concerning for over shunting; patient has been evaluated by neurology and is recommended to be transferred to a tertiary care facility for neurosurgical evaluation 3. Hyperlipidemia 4. Chronic tobacco and marijuana use --Has been evaluated by neurosurgery and recommending urgent neurosurgical consultation to evaluate for malfunctioning shunt due to changes on CT showing slight ventricles -- [facility] or [facility] -- Patient discussed with Dr. Bui at [facility]; she will see patient on consultation and is recommended patient to be transferred and intensive care service -- Patient discussed with Dr. eRyes critical care fellow who accepts patient under Dr. Soto Awasky bed availability
[2024-02-17 17:10] VITALS: BP 122/83; RESP 22
[2024-02-17 17:45] LABS: Glucose,Whole Blood 90 mg/dL (70-110)
== END 2024-02-17 18:12 | disposition short-term general hospital (02) | DRG 101 ==
LOC: EC 03:02 → 2SICU 06:57
PROVIDERS: ADMIT Hospitalist; ATTEND Hospitalist
PROC: 0BH17EZ Insertion of Endotracheal Airway into Trachea, Via Natural or Artificial Opening (ICD-10-PCS; principal; 2024-02-17)
PROC: 5A1935Z Respiratory Ventilation, Less than 24 Consecutive Hours (ICD-10-PCS; 2024-02-17)
DX: G40.411 Other generalized epilepsy and epileptic syndromes, intractable, with status epilepticus (principal); G91.9 Hydrocephalus, unspecified; Z79.899 Other long term (current) drug therapy; J45.909 Unspecified asthma, uncomplicated; E78.5 Hyperlipidemia, unspecified; F17.210 Nicotine dependence, cigarettes, uncomplicated; R29.6 Repeated falls; Z86.14 Personal history of Methicillin resistant Staphylococcus aureus infection; Z98.2 Presence of cerebrospinal fluid drainage device
CPT/HCPCS: 36415; 36600; 70450; 71045; 80053; 80143; 80164; 80177; 80179; 80306; 81001; 82805; 83605; 83735; 85025; 87070; 87205; 93005; 94002; 96361; 96374; 99291

== ENCOUNTER 2024-03-05 19:55 | Inpatient (IN) | payer MEDICARE, OTHER ==
[2024-03-05 20:16] LABS: Basophils % (A) 0 %; Eosinophils # (A) 0.1 k/uL (0-0.7); Eosinophils % (A) 1 %; HCT 40.8 % (39.0-53.0); HGB 13.4 gm/dL (13.0-17.5); Lymphocytes # (A) 1.7 k/uL (1.0-4.8); Lymphocytes % (A) 33 %; MCH 31.3 pg (25.0-35.0); Mean Platelet Volume 7.3; Monocytes # (A) 0.3 k/uL (0-1.0); Monocytes % (A) 6 %; Neutrophils % (A) 58 %; Platelet Count 355 k/uL (150-450); RBC 4.29 m/uL (4.30-5.90); RDW 12.3 % (11.5-15.5); WBC 5.2 k/uL (3.8-10.6)
[2024-03-05 20:25] LABS: INR 1.2 (<1.2); Partial Thromboplastin Time 24.8 sec (22.0-30.0); Prothrombin Time 12.5 sec (10.0-12.5)
[2024-03-05] MEDS: SODIUM CHLORIDE 0.9% 500 ML 500 ML IV ONE (20:26)
[2024-03-05 20:37] LABS: ALT 25 U/L (4-49); AST 29 U/L (17-59); African American GFR (CKD) >90 (>60 ml/min/1.73 sqM); Albumin 3.5 g/dL (3.5-5.0); Alkaline Phosphatase 43 U/L (38-126); Anion Gap 8 mmol/L; Blood Urea Nitrogen 20 mg/dL (9-20); Calcium 9.4 mg/dL (8.4-10.2); Carbon Dioxide 20 mmol/L (22-30); Chloride 107 mmol/L (98-107); Glucose 94 mg/dL (74-99); Non-African American GFR(CKD) >90 (>60 ml/min/1.73 sqM); Potassium 4.5 mmol/L (3.5-5.1); Sodium 135 mmol/L (137-145); Total Bilirubin 0.6 mg/dL (0.2-1.3); Total Protein 6.2 g/dL (6.3-8.2)
--- NOTE | 2024-03-05 21:09 | ED ---
General Adult HPI - General Chief complaint: Fall Stated complaint: Altered mental Time Seen by Provider: 03/05/24 19:57 Source: patient, RN notes reviewed, old records reviewed Mode of arrival: EMS Limitations: altered mental status, physical limitation - History of Present Illness Initial comments: 28-year-old male presents for evaluation of agitation, confusion and difficulty ambulating. Patient was discharged from [facility] 5 days prior after a prolonged admission where he was intubated and subsequently treated for seizure. The history is limited but the mother was able to give detailed history. He is been agitated throughout his preadmission, admission and postadmission phases. This has been an ongoing issue for at least a month according to the mother. Patient was weak throughout his admission and was barely able to ambulate after discharge. She states he is able to ambulate with assistance currently. No fever. No witnessed seizure activity. Further history from the mother indicates that the patient is refusing to take his medications. This has been an ongoing issue. - Related Data Home Medications Medication Instructions Recorded Confirmed HYDROcodone/APAP 10-325MG [Diamond 1 tab PO TID 01/24/22 02/17/24 10-325] Albuterol Sulfate [Ventolin HFA] 2 puff INHALATION RT-Q4H PRN 01/20/23 02/17/24 Divalproex Sodium [Depakote] 500 mg PO BID 01/20/23 02/17/24 Divalproex [Depakote] 250 mg PO BID 01/20/23 02/17/24 Midazolam [Nayzilam] 5 mg NASAL DIRECTED PRN 01/20/23 02/17/24 Eslicarbazepine Acetate [Aptiom] 800 mg PO DAILY 02/17/24 02/17/24 Meclizine [Antivert] 12.5 mg PO TID PRN 02/17/24 02/17/24 Vitamin D3(Unknown Dose) 1 tab PO DAILY 02/17/24 02/17/24 Allergies Allergy/AdvReac Type Severity Reaction Status Date / Time methocarbamol [From Robaxin] Allergy Red Verified 02/17/24 09:22 Syndrome Penicillins Allergy Anaphylaxis Verified 02/17/24 09:22 levetiracetam [From Keppra] AdvReac Aggression Verified 02/17/24 09:22 Review of Systems ROS Statement: Those systems with pertinent positive or pertinent negative responses have been documented in the HPI. ROS Other: All systems not noted in ROS Statement are negative. Past Medical History Past Medical History: Asthma, Hyperlipidemia, Seizure Disorder Additional Past Medical History / Comment(s): chiari malformation, BRANCH SERVICE ASSOCIATE shunt, History of Any Multi-Drug Resistant Organisms: MRSA Date of last positivie culture/infection: 07/29/19 MDRO Source:: MRSA HEAD Past Surgical History: Orthopedic Surgery Additional Past Surgical History / Comment(s): chiari malformation, VNS procedure 3/ Past Anesthesia/Blood Transfusion Reactions: Unable to Obtain Past Psychological History: No Psychological Hx Reported Smoking Status: Current every day smoker Past Alcohol Use History: Occasional Past Drug Use History: None Reported General Exam Limitations: altered mental status, physical limitation General appearance: alert, in no apparent distress Head exam: Present: atraumatic, normocephalic Eye exam: Present: normal appearance, PERRL ENT exam: Present: normal exam Neck exam: Present: normal inspection. Absent: tenderness, meningismus Respiratory exam: Present: normal lung sounds bilaterally. Absent: respiratory distress, wheezes Cardiovascular Exam: Present: regular rate, normal rhythm GI/Abdominal exam: Present: soft. Absent: distended, tenderness Neurological exam: Present: alert. Absent: oriented X3, motor sensory deficit (No focal findings, generalized weakness) Skin exam: Present: warm, dry, intact Course Vital Signs 03/05/24 19:58 Temperature 98.0 F Pulse Rate 75 Respiratory 20 Rate Blood Pressure 138/101 O2 Sat by Pulse 100 Oximetry Medical Decision Making - Medical Decision Making Was pt. sent in by a medical professional or institution (, PA, RISK CONTROL REPRESENTATIVE, urgent care, hospital, or care home...) When possible be specific @ -No Did you speak to anyone other than the patient for history (EMS, parent, family, police, friend...)? What history was obtained from this source @ -No Did you review nursing and triage notes (agree or disagree)? Why? @ -I reviewed and agree with nursing and triage notes Were old charts reviewed (outside hosp., previous admission, EMS record, old EKG, old radiological studies, urgent care reports/EKG's, care home records)? Report findings @ -No old charts were reviewed Differential Altered Mental Status: Hypoglycemia, DKA, hypercapnia, ETOH, overdose, CO poisoning, trauma, myxedema coma, HTN encephalopathy, infection, encephalitis, psychosis, intercranial hemorrhage, hepatic encephalopathy, meningitis, CVA, this is not meant to be an all-inclusive list EKG interpreted by me (3pts min.). @Sinus rhythm rate of 75, CA interval 167, QRS duration 89, QTc [address] segment elevation X-rays interpreted by me (1pt min.). @ -None done CT interpreted by me (1pt min.). @ -Negative for intracranial hemorrhage or mass effect U/S interpreted by me (1pt. min.). @ -None done What testing was considered but not performed or refused? (CT, X-rays, U/S, labs)? Why? @ -None What meds were considered but not given or refused? Why? @ -None Did you discuss the management of the patient with other professionals (professionals i.e. , PA, RISK CONTROL REPRESENTATIVE, lab, RT, psych nurse, social insurance adviser, mobile lounge driver, teacher, command and control officer, family independence case manager)? Give summary @ -EM Was smoking cessation discussed for >3mins.? @ -No Was critical care preformed (if so, how long)? @ -No Were there social determinants of health that impacted care today? How? (Homelessness, low income, unemployed, alcoholism, drug addiction, trans portation, low edu. Level, literacy, decrease access to med. care, fpc, rehab)? @ -No Was there de-escalation of care discussed even if they declined (Discuss DNR or withdrawal of care, Hospice)? DNR status @ -No What co-morbidities impacted this encounter? (DM, HTN, Smoking, COPD, CAD, Cancer, CVA, ARF, Chemo, Hep., AIDS, mental health diagnosis, sleep apnea, morbid obesity)? @ -Memory impairment, Arnold-Chiari malformation, BRANCH SERVICE ASSOCIATE shunt Was patient admitted / discharged? Hospital course, mention meds given and route, prescriptions, significant lab abnormalities, going to OR and other pertinent info. @38-year-old male presenting with confusion and agitation, gait instability. These are ongoing issues but have worsened after recent hospitalization. There is no witnessed seizure activity. Laboratory testing including CBC and CMP are unremarkable. Head CT is negative. The patient is awake and alert but not oriented. He does seem to have some judgment issues. He may benefit from re habilitation. He will be admitted to internal medicine. Undiagnosed new problem with uncertain prognosis? @ -No Drug Therapy requiring intensive monitoring for toxicity (Heparin, Nitro, Insulin, Cardizem)? @ -No Were any procedures done? @ -No Diagnosis/symptom? @ -[d debility, altered mental status, agitation Acute, or Chronic, or Acute on Chronic? @ -Acute on chronic Uncomplicated (without systemic symptoms) or Complicated (systemic symptoms)? @ -Default Side effects of treatment? @ -No Exacerbation, Progression, or Severe Exacerbation? @ -No Poses a threat to life or bodily function? How? (Chest pain, USA, MT, pneumonia, PE, COPD, DKA, ARF, appy, cholecystitis, CVA, Diverticulitis, Homicidal, Suicidal, threat to staff... and all critical care pts) @ -Moderate risk, self-harm - Lab Data Result diagrams: 03/05/24 20:05 03/05/24 20:05 Lab Results 03/05/24 03/05/24 03/05/24 Range/Units 20:05 20:05 20:05 WBC 5.2 (3.8-10.6) k/uL RBC 4.29 L (4.30-5.90) m/uL Hgb 13.4 (13.0-17.5) gm/dL Hct 40.8 (39.0-53.0) % MCV 95.0 (80.0-100.0) fL MCH 31.3 (25.0-35.0) pg MCHC 33.0 (31.0-37.0) g/dL RDW 12.3 (11.5-15.5) % Plt Count 355 (150-450) k/uL MPV 7.3 Neutrophils % 58 % Lymphocytes % 33 % Monocytes % 6 % Eosinophils % 1 % Basophils % 0 % Neutrophils # 3.0 (1.3-7.7) k/uL Lymphocytes # 1.7 (1.0-4.8) k/uL Monocytes # 0.3 (0-1.0) k/uL Eosinophils # 0.1 (0-0.7) k/uL Basophils # 0.0 (0-0.2) k/uL PT 12.5 (10.0-12.5) sec INR 1.2 H (<1.2) APTT 24.8 (22.0-30.0) sec Sodium 135 L (137-145) mmol/L Potassium 4.5 (3.5-5.1) mmol/L Chloride 107 (98-107) mmol/L Carbon Dioxide 20 L (22-30) mmol/L Anion Gap 8 mmol/L BUN 20 (9-20) mg/dL Creatinine 0.87 (0.66-1.25) mg/dL Est GFR (CKD-EPI)AfAm >90 (>60 ml/min/1.73 sqM) Est GFR (CKD-EPI)NonAf >90 (>60 ml/min/1.73 sqM) Glucose 94 (74-99) mg/dL POC Glucose (mg/dL) (70-110) mg/dL POC Glu Vacuum Cleaner Assembler ID Calcium 9.4 (8.4-10.2) mg/dL Total Bilirubin 0.6 (0.2-1.3) mg/dL AST 29 (17-59) U/L ALT 25 (4-49) U/L Alkaline Phosphatase 43 (38-126) U/L Total Protein 6.2 L (6.3-8.2) g/dL Albumin 3.5 (3.5-5.0) g/dL 03/05/24 Range/Units 21:48 WBC (3.8-10.6) k/uL RBC (4.30-5.90) m/uL Hgb (13.0-17.5) gm/dL Hct (39.0-53.0) % MCV (80.0-100.0) fL MCH (25.0-35.0) pg MCHC (31.0-37.0) g/dL RDW (11.5-15.5) % Plt Count (150-450) k/uL MPV Neutrophils % % Lymphocytes % % Monocytes % % Eosinophils % % Basophils % % Neutrophils # (1.3-7.7) k/uL Lymphocytes # (1.0-4.8) k/uL Monocytes # (0-1.0) k/uL Eosinophils # (0-0.7) k/uL Basophils # (0-0.2) k/uL PT (10.0-12.5) sec INR (<1.2) APTT (22.0-30.0) sec Sodium (137-145) mmol/L Potassium (3.5-5.1) mmol/L Chloride (98-107) mmol/L Carbon Dioxide (22-30) mmol/L Anion Gap mmol/L BUN (9-20) mg/dL Creatinine (0.66-1.25) mg/dL Est GFR (CKD-EPI)AfAm (>60 ml/min/1.73 sqM) Est GFR (CKD-EPI)NonAf (>60 ml/min/1.73 sqM) Glucose (74-99) mg/dL POC Glucose (mg/dL) 78 (70-110) mg/dL POC Glu Vacuum Cleaner Assembler ID Dimple Saenz Calcium (8.4-10.2) mg/dL Total Bilirubin (0.2-1.3) mg/dL AST (17-59) U/L ALT (4-49) U/L Alkaline Phosphatase (38-126) U/L Total Protein (6.3-8.2) g/dL Albumin (3.5-5.0) g/dL Disposition Clinical Impression: Altered mental status, Medication noncompliance due to cognitive impairment, Generalized weakness Disposition: ADMITTED IP TO THIS [facility] Condition: Stable Is patient prescribed a controlled substance at d/c from ED?: No Referrals: Michaela Easley MD [Primary Care Provider] - 1-2 days Time of Disposition: 22:10
--- NOTE | 2024-03-05 21:36 | CT ---
EXAMINATION TYPE: CT brain lisa wo con DATE OF EXAM: 03/05/2024 COMPARISON: 02/17/2024 HISTORY: Fall/AMS CT DLP: 1660.8 mGycm, Automated exposure control for dose reduction was used. CONTRAST: Patient injected with 0 mL of Isovue 300. CT of the brain is performed utilizing 3 mm thick sections through the posterior fossa and 3 mm thick sections through the remaining calvarium. Study is performed within 24 hours of arrival to the hospital. No abnormal hyperdensity is present to suggest an acute intracranial hemorrhage. No mass lesion is evident. No acute infarcts are evident. Patient's ventricular shunt on the right remains present. No ventricu lar dilatation is evident. No temporal horn dilatation is evident. Ventricles and sulci are appropriate for the patient age. Paranasal sinuses and mastoid air cells within the [id number] are clear. IMPRESSIONS: 1. No acute intracranial process. Follow-up MRI can be performed as clinically indicated. CT cervical spine. COMPARISON: None CT of the cervical spine is performed in the axial plane at 2 mm thick sections. Reconstructed image s in the coronal, and sagittal plane are reviewed on the computer. No acute fractures are evident. There is side bending towards the right. This can be positional or related to muscle spasm. Disc heights are preserved. Vertebral body heights are preserved. No spinal canal stenosis is evident. No neural foraminal stenosis is evident. IMPRESSION: 1. No acute osseous abnormality cervical spine. [facility], , 03/05/2024 9:34 PM
[2024-03-05 21:50] LABS: Glucose,Whole Blood 78 mg/dL (70-110)
[2024-03-05] MEDS ORDERED: NALOXONE 0.4 MG/ML 1 ML VIAL IV PRN (22:04)
[2024-03-05] MEDS ORDERED: MECLIZINE 12.5 MG TAB PO PRN (22:12)
[2024-03-05] MEDS: DIVALPROEX 500 MG TABLET.DR PO SCH (22:58)
[2024-03-05] MEDS: HYDROcodone/APAP 10-325MG 1 EACH TAB PO SCH (22:58)
[2024-03-05] MEDS: DIVALPROEX 250 MG TABLET.DR PO SCH (22:58)
[2024-03-05] MEDS: ESLICARBAZEPINE ACETATE 800 MG PO SCH (22:59)
[2024-03-06] MEDS: ESLICARBAZEPINE ACETATE 800 MG PO SCH (00:12)
[2024-03-06] MEDS: NICOTINE 21MG/24HR PATCH TRANSDERM STA (01:23)
[2024-03-06 08:12] LABS: Glucose,Whole Blood 83 mg/dL (70-110)
[2024-03-06 08:37] LABS: Appearance,Urine Cloudy (Clear); Bilirubin,Urine Negative (Negative); Blood,Urine Negative (Negative); Color,Urine Yellow; Glucose,Urine (UA) Negative (Negative); Ketones,Urine Negative (Negative); Leukocyte Esterase,Urine Negative (Negative); Mucus,Urine Rare /hpf; Nitrite,Urine Negative (Negative); Protein,Urine Trace (Negative); RBC,Urine <1 /hpf (0-5); Squamous Epithelial Cell,Urine <1 /hpf (0-4); Urobilinogen,Urine <2.0 mg/dL (<2.0); WBC,Urine 2 /hpf (0-5)
[2024-03-06 08:46] LABS: Cocaine Screen,Urine Not Detected (NotDetected); Phencyclidine Screen,Urine Not Detected (NotDetected); Urn Cannabinoid Scrn Not Detected (NotDetected)
[2024-03-06 08:47] LABS: Amphetamine Screen,Urine Not Detected (NotDetected); Barbiturate Screen,Urine Not Detected (NotDetected); Benzodiazepines Screen,Urine Not Detected (NotDetected); Methadone Screen, Urine Not Detected (NotDetected); Opiate Screen,Urine Detected (NotDetected); Oxycodone Screen, Urine Not Detected (NotDetected); Tricyclic Antidepressant,Urine Not Detected (NotDetected)
[2024-03-06] MEDS: DIVALPROEX 500 MG TABLET.DR PO SCH (10:05)
[2024-03-06] MEDS ORDERED: ALBUTEROL NEBULIZED 2.5 MG/3 ML INHALATION PRN (11:12)
[2024-03-06 12:03] LABS: ALT 21 U/L (4-49); African American GFR (CKD) >90 (>60 ml/min/1.73 sqM); Albumin/Globulin Ratio 1.2; Anion Gap 9 mmol/L; Blood Urea Nitrogen 19 mg/dL (9-20); Calcium 9.1 mg/dL (8.4-10.2); Carbon Dioxide 19 mmol/L (22-30); Chloride 106 mmol/L (98-107); Globulin 2.6 g/dL; Glucose 102 mg/dL (74-99); Non-African American GFR(CKD) >90 (>60 ml/min/1.73 sqM); Sodium 134 mmol/L (137-145); Total Bilirubin 0.8 mg/dL (0.2-1.3)
[2024-03-06 12:09] LABS: Valproic Acid (Depakene) 118.8 ug/mL
[2024-03-06 12:22] LABS: Total Protein 5.8 g/dL (6.3-8.2)
[2024-03-06 12:23] LABS: AST 34 U/L (17-59); Albumin 3.2 g/dL (3.5-5.0); Alkaline Phosphatase 38 U/L (38-126); Potassium 4.8 mmol/L (3.5-5.1)
[2024-03-06 13:44] LABS: Basophils % (A) 0 %; Eosinophils # (A) 0.1 k/uL (0-0.7); Eosinophils % (A) 2 %; HCT 42.8 % (39.0-53.0); HGB 14.4 gm/dL (13.0-17.5); Lymphocytes # (A) 1.6 k/uL (1.0-4.8); Lymphocytes % (A) 36 %; MCH 31.6 pg (25.0-35.0); MCHC 33.7 g/dL (31.0-37.0); Mean Platelet Volume 8.2; Monocytes # (A) 0.4 k/uL (0-1.0); Monocytes % (A) 8 %; Neutrophils # (A) 2.4 k/uL (1.3-7.7); Neutrophils % (A) 52 %; Platelet Count 274 k/uL (150-450); RBC 4.56 m/uL (4.30-5.90); RDW 12.8 % (11.5-15.5); WBC 4.6 k/uL (3.8-10.6)
--- NOTE | 2024-03-06 15:23 | P.HPIM ---
History of Present Illness H&P Date: 03/06/24 Patient is a 28-year-old male with a past medical history of seizure disorder, Chiari malformation, CONCESSION CASHIER shunt, hyperlipidemia, asthma who presents to the ED with confusion, falls, and agitation for a few days. He was discharged from [facility] 5 days ago after a prolonged admission where he was treated for status epilepticus. Patient is a poor historian and moderately confused, patient's mother provided collateral. The patient was at his sister's and had fallen a few times but no loss of consciousness was noted. Yesterday the sister found the patient laying down and unresponsive with rapid breathing so EMS was called. Mother states the patient has been noncompliant with his medications until the last few days when she has watched him take them. She endorses increased aggression, thoughts of self-harm, and hallucinations as he is having conversations with people who were not in the room. According to the patient he does not remember falling and denies current thoughts of self-harm. He endorses chronic abdominal pain and headaches. He denies current chest pain, palpitati ons, shortness of breath, hematuria, hematochezia/melena. CT head was unremarkable. EKG showed normal sinus rhythm. WBCs 5.2, hemoglobin 13.4, platelets 355, INR 1.2, sodium 135, potassium 4.5, CO2 20, BUN 20, creatinine 0.87. Urinalysis positive for opiates. Valproic acid 118.8. Afebrile, normotensive, saturating well on room air. ED documentation reviewed. Review of systems: Pertinent positives and negatives as discussed in HPI, a complete review of systems was performed and all other systems are negative. Social history: Tobacco: Current smoker, reported by mother Alcohol: Yes, reported by mother Recreational drugs: Denies Physical examination: Limited by altered mental status. Vital signs are reviewed. General: No acute distress. AO x 1. HEENT: Scabbing on nasal bridge, no tenderness. EOMI bilaterally. ACs patent. Nares patent. Lungs: Bilateral breath sounds present; no rhonchi, wheezes, or rales. Heart: Rate and rhythm are regular. S1-S2 present. No murmur/rub/gallops. Abdomen: Soft, nontender, nondistended. Bowel sounds present. Extremities: No edema present. Symmetric movement. Psych: Mildly confused, blunted affect, depressed mood. Assessment/Plan: Altered mental status Neurology consult Labs unremarkable Urinalysis unremarkable Valproic acid level therapeutic History of seizures Continue Depakote Continue Trileptal COPD Continue Ventolin as needed Depression Continue trazodone Psychiatric consult Chronic pain Continue [place] 10 DVT prophylaxis: Mechanical Chronic conditions: Seizures, hydrocephalus, CONCESSION CASHIER shunt, chronic pain, COPD The patient is admitted with an anticipated less than 2 midnight stay for evaluation of altered mental status. CODE STATUS: Full code Discussed with: Patient and patient's mother Anticipated discharge place: Home Attestation I have seen and examined this patient with my resident , discussed the same with the resident/DENISSE, and agree with the dictator's assessment and plan as written Resume home antiepileptics Consult neurology Dr. Yusuf dalal [ ] Past Medical History Past Medical History: Asthma, Hyperlipidemia, Seizure Disorder Additional Past Medical History / Comment(s): chiari malformation, CONCESSION CASHIER shunt, History of Any Multi-Drug Resistant Organisms: MRSA Date of last positivie culture/infection: 07/29/19 MDRO Source:: MRSA HEAD Past Surgical History: Orthopedic Surgery Additional Past Surgical History / Comment(s): chiari malformation, VNS procedure 3/ Past Anesthesia/Blood Transfusion Reactions: Unable to Obtain Past Psychological History: No Psychological Hx Reported Smoking Status: Current every day smoker Past Alcohol Use History: Occasional Past Drug Use History: None Reported Medications and Allergies Home Medications Medication Instructions Recorded Confirmed Type HYDROcodone/APAP 10-325MG [[place] 1 tab PO TID 01/24/22 03/06/24 History 10-325] Albuterol Sulfate [Ventolin HFA] 2 puff INHALATION RT-Q4H PRN 01/20/23 03/06/24 History Divalproex Sodium [Depakote] 500 mg PO BID 01/20/23 03/06/24 History Divalproex [Depakote] 250 mg PO BID 01/20/23 03/06/24 History Meclizine [Antivert] 12.5 mg PO TID PRN 02/17/24 03/06/24 History OXcarbazepine [Trileptal] 300 mg PO BID 03/06/24 03/06/24 History Valproic Acid (As Sodium Salt) 750 mg PO BID 03/06/24 03/06/24 History [Valproic Acid] traZODone HCL [Desyrel] 100 mg PO HS 03/06/24 03/06/24 History Allergies Allergy/AdvReac Type Severity Reaction Status Date / Time methocarbamol [From Robaxin] Allergy Red Verified 03/06/24 08:31 Syndrome Penicillins Allergy Anaphylaxis Verified 03/06/24 08:31 levetiracetam [From Keppra] AdvReac Aggression Verified 03/06/24 08:31 Physical Exam Vitals: Vital Signs Temp Pulse Resp BP Pulse Ox 03/06/24 00:40 87 18 143/85 97 03/05/24 22:24 60 18 148/98 97 03/05/24 19:58 98.0 F 75 20 138/101 100 Intake and Output 03/05/24 03/05/24 03/06/24 14:59 22:59 06:59 Other: Weight 54.431 kg Results CBC & Chem 7: 03/06/24 13:02 03/06/24 11:16 Labs: Abnormal Lab Results - Last 24 Hours (Table) 03/05/24 03/05/24 03/05/24 Range/Units 20:05 20:05 20:05 RBC 4.29 L (4.30-5.90) m/uL INR 1.2 H (<1.2) Sodium 135 L (137-145) mmol/L Carbon Dioxide 20 L (22-30) mmol/L Total Protein 6.2 L (6.3-8.2) g/dL
[2024-03-06] MEDS ORDERED: ESLICARBAZEPINE ACETATE 800 MG PO SCH (21:00)
[2024-03-06] MEDS: traZODone HCL 100 MG TAB PO SCH (21:13)
[2024-03-06] MEDS: OXcarbazepine 300 MG TAB PO SCH (21:23)
[2024-03-06] MEDS ORDERED: OLANZapine 10 MG VIAL IM PRN (21:34)
[2024-03-06] MEDS: OLANZapine 5 MG TAB PO PRN (23:31)
--- NOTE | 2024-03-07 12:11 | P.PN ---
Subjective Progress Note Date: 03/07/24 Patient is a 28-year-old male with a past medical history of seizure disorder, Chiari malformation, CORD TIRE BUILDER shunt, hyperlipidemia, asthma who presents to the ED with confusion, falls, and agitation for a few days. He was discharged from [facility] 5 days ago after a prolonged admission where he was treated for status epilepticus. Patient is a poor historian and moderately confused, patient's mother provided collateral. The patient was at his sister's and had fallen a few times but no loss of consciousness was noted. Yesterday the sister found the patient laying down and unresponsive with rapid breathing so EMS was called. Mother states the patient has been noncompliant with his medications until the last few days when she has watched him take them. She endorses increased aggression, thoughts of self-harm, and hallucinations as he is having conversations with people who were not in the room. According to the patient he does not remember falling and denies current thoughts of self-harm. He endorses chronic abdominal pain and headaches. He denies current chest pain, palpitations, shortness of breath, hematuria, hematochezia/melena. CT head was unremarkable. EKG showed normal sinus rhythm. WBCs 5.2, hemoglobin 13.4, platelets 355, INR 1.2, sodium 135, potassium 4.5, CO2 20, BUN 20, creatinine 0.87. Urinalysis positive for opiates. Valproic acid 118.8. Afebrile, normotensive, saturating well on room air. 03/07. Patient seen and examined lying in bed. He has no significant complaints today. He appears a little more alert today continues to endorse difficulty with short-term memory. He also states that while he is asleep he is having urinary incontinence. Neurology consulted. Psych consulted. Review of systems: Pertinent positives and negatives as discussed in HPI, a complete review of systems was performed and all other systems are negative. Physical examination: Limited by altered mental status. Vital signs are reviewed. General: No acute distress. AO x 2. HEENT: Scabbing on nasal bridge, no tenderness. EOMI bilaterally. ACs patent. Nares patent. Lungs: Bilateral breath sounds present; no rhonchi, wheezes, or rales. Heart: Rate and rhythm are regular. S1-S2 present. No murmur/rub/gallops. Abdomen: Soft, nontender, nondistended. Bowel sounds present. Extremities: No edema present. Symmetric movement. Psych: Mildly confused, blunted affect, depressed mood. Assessment/Plan: Altered mental status Neurology consulted Labs unremarkable Urinalysis unremarkable Valproic acid level therapeutic History of seizures Continue Depakote Continue Trileptal COPD Continue Ventolin as needed Depression Continue trazodone Psychiatric consulted Chronic pain Continue [place] 10 DVT prophylaxis: Mechanical Chronic conditions: Seizures, hydrocephalus, CORD TIRE BUILDER shunt, chronic pain, COPD Attestation I have seen and examined this patient with my resident , discussed the same with the resident/DENISSE, and agree with the dictator's assessment and plan as written Dr. Yusuf dalal Objective - Vital Signs Vital signs: Vital Signs Temp 97.7 F 03/07/24 00:29 Pulse 61 03/07/24 00:29 Resp 20 03/07/24 02:26 BP 117/77 03/07/24 00:29 Pulse Ox 100 03/07/24 00:29 FiO2 Intake & Output 03/06/24 03/07/24 03/07/24 18:59 06:59 18:59 Weight 54.431 kg Other: # Voids 1 - Labs CBC & Chem 7: 03/06/24 13:02 03/06/24 11:16 Labs: Abnormal Lab Results - Last 24 Hours (Table) 03/06/24 03/06/24 Range/Units 08:08 11:16 Sodium 134 L (137-145) mmol/L Carbon Dioxide 19 L (22-30) mmol/L Glucose 102 H (74-99) mg/dL Total Protein 5.8 L (6.3-8.2) g/dL Albumin 3.2 L (3.5-5.0) g/dL Urine Opiates Screen Detected H (NotDetected)
--- NOTE | 2024-03-07 15:02 | P.CN ---
Psychiatric Consult - . Consult date: 03/07/24 Consult:: 03/07/24 14:13 IDENTIFYING DATA: This patient is a 28-year-old male, currently lives with his mother in a home REASON FOR REFERRAL: Psychiatry was consulted for "aggression/noncompliance" HISTORY OF PRESENT ILLNESS: The patient presented to the hospital initially on 03/05 for agitation and confusion. Apparently patient was recently discharged from [facility] about 5 days ago for a prolonged stay due to seizures a nd need to be intubated. Patient has been demonstrating weakness and poor ambulation, has a history of severe seizures. Depakote level on admission was 118.8. Urine drug screen is positive for opiates. Dielectric Testing Machine Operator attempted to see patient at the bedside, he was initially irritable and dismissive of insurance underwriter sales stating he did not want to talk. However soon after he began answering some questions. He states that he is angry towards his mother for trying to get rights over him, he states that "she is trying to become my guardian". He claims that he wants to get so that his can make decisions for him instead and move out. He appeared to have poor impulse control poor frustration tolerance. He was fairly superficial with insurance underwriter sales, denies any problems with his sleep or appetite. He appeared to be fairly hesitant when speaking about medications, did endorse having anxiety denies any depression at this time however he claims that he is upset with being in the hospital. At this time patient denies any suicidal or homical ideations, intent or plan. Patient denies any auditory, visual hallucinations. Patient was fairly uncooperative with the rest of the interview and did not answer further questions and told insurance underwriter sales "I am not talking you anymore". PAST PSYCHIATRIC HISTORY: Unable to gather previous psychiatric history. Patient is currently on trazodone, Trileptal, Depakote. PAST MEDICAL HISTORY:Past Medical History: Asthma, Hyperlipidemia, Seizure Disorder Additional Past Medical History / Comment(s): chiari malformation, HIGHWAY PATROL OFFICER shunt, History of Any Multi-Drug Resistant Organisms: MRSA Date of last positivie culture/infection: 07/29/19 MDRO Source:: MRSA HEAD Past Surgical History: Orthopedic Surgery Additional Past Surgical History / Comment(s): chiari malformation, VNS procedure 3/2 Past Anesthesia/Blood Transfusion Reactions: Unable to Obtain Past Psychological History: No Psychological Hx Reported Smoking Status: Current every day smoker Past Alcohol Use History: Occasional Past Drug Use History: None Reported ALLERGIES: as per EMR. CHEMICAL DEPENDENCY HISTORY: as per HPI. FAMILY PSYCHIATRIC/SUBSTANCE USE HISTORY: Unable to gather SOCIAL HISTORY: Patient claims that he currently lives with his mother in a house, unable to gather further information MENTAL STATUS EXAM: General Appearance: Patient appears to be thin, has a scar over his nose, stated age is alert, irritable and dismissive of insurance underwriter sales. Patient appears to have fair hygiene and grooming wearing hospital gown with fair eye contact. Behavior: Fairly uncooperative Speech: Patient's speech is fluent and nonpressured. Demanding Mood/Affect: Patient reports their mood is "not good and anxious", affect is congruent irritable Suicidality/Homicidality: Patient denies having any suicidal or homicidal ideation intent or plan. Perceptions: Patient denies any visual hallucinations and denies any auditory hallucinations Though content/process: Poor judgment, focused on his mother and not taking his medications. Memory and concentration: AOX1-2, follows some commands. Cannot spell "WORLD" backwards Judgment and insight: Poor/impulsive IMPRESSIONS: Mood disorder unspecified History of seizure disorder PLAN: -At this time patient DOES NOT currently meet criteria for inpatient psychiatric admission however patient is not open to allowing insurance underwriter sales to speak with his mother about further collateral. Will continue to follow along, nurse will speak with patient's mother to see if she would be able to come in and do a petition stating her specific concerns about patient's behaviors and symptoms. if patient is found to have severe enough sx and meets criteria for inpatient psych then will be reassed for that at that time. -Patient DOES NOT have decision making capacity at this time and is unable to reason through and communicate/appreciate the risks, benefits and alternatives to treatment. -Would recommend the following medication changes/additions: Increase trazodone to 150 mg nightly for sleep/mood, continue with Trileptal and Depakote as prescribed. Added Invega p.o. 3 mg daily for mood stabilization/aggression. -still worker helper to provide patient with outpatient mental health/psychiatry resources for appropriate follow up upon discharge -Communicated plan to patient's nurse -Will continue to follow along as needed. if mother completes a petition then please place in the chart for further review by team and oracle scm consultant. -Please contact with any questions. 03/07/24 14:55
[2024-03-07] MEDS: PALIPERIDONE 3 MG TAB.ER.24 PO SCH (17:35)
--- NOTE | 2024-03-07 19:27 | P.CNNES ---
History of Present Illness Consult date: 03/07/24 Requesting physician: Magda Lee Reason for Consult: Altered mental status History of Present Illness: Patient is a 28-year-old male came to the hospital by ambulance day before yesterday, 03/05/2024 at 7:55 PM for possible seizure and altered mental status. Patient was recently seen in hospital consultation on 02/17/2024 when he had presented with seizures. Patient was intubated. Patient has previous history of hydrocephalus due to Chiari malformation, status post placement of AQUACULTURE DIRECTOR shunt. Patient was transferred to [facility] for continuous EEG monitoring and neurosurgical consultation. Patient apparently stayed in the hospital in ICU for 5 days and another 1-1/2 days at the regular floor. He also underwent 3 or 4 days of EEG monitoring, as per patient's mother. Patient's mother, who was present at this time states that neurosurgery also saw the patient, who told the pressure of the shunt was within the range, as the pressure has to be under 7. Patient's mother also mentions that while in the hospital at [facility], he pulled the ET tube, pulled IV lines and catheters. He was refusing to take medications. He was fighting everybody. He does get agitated and aggressive. Since discharge from the hospital, patient has been sleeping or becomes agitated. Patient's mother mentions that he is hallucinating, talking to people who were not there, confused a lot more. Patient's mother tells me that she is trying to get power of admitted attorneys on him. Patient had that and became somewhat upset stating that mom is trying to control him. He does not want her to be involved in his care. Some conflict between them. Patient states that he follows up with Dr. Dc every 2 months and also see a pain specialist. Patient tells me that he also follows up with neurosurgeon Dr. Bui who placed the shunt. He does tell me that he had multiple shunt revisions. Patient has history of Chiari malformation for which he underwent suboccipital craniectomy about 5 years ago. He subsequently developed hydrocephalus for which shunt was placed by Dr. Brooklyn Bui at [facility] in [facility]. Patient's family mentions that he had 5 brain surgeries, as the shunt kept on breaking and once it was infected with MRSA and required revision of the shunt. Patient started having seizures 3 years ago. Patient has multiple brain scans done over years, which shows slitlike ventricles possible over shunting, but he has not seen neurosurgeon for last couple years. As per EMS flowsheet when they arrived, patient was found alert and orient x 0, moaning to physical stimuli. Patient was recently hospitalized due to a prolonged seizure and high ammonia levels. Patient typically is alert and orient x 4 at baseline with issues of aggression, however sister states that since the patient has been home he is more aggressive, he is "out of it". He also has increased weakness. Today patient had an approximate 30-minute episode of altered level of consciousness. Sister mentioned that he fell 2 days prior. Patient's vitals at the scene was blood pressure 156/91, pulse rate 111, respiration 14 saturation 100%. Blood sugar 103. Patient's vitals has been stable. Blood test shows normal CBC, INR 1.2. PTT normal. Sodium 135 potassium 4.5, normal renal and hepatic panel. UA is negative. Urine drug screen positive for opiates. Depakote level is elevated 118. Patient's home medications include Depakote 250 mg twice daily, Depakote 500 mg twice daily and Depakote 750 mg twice daily, Trileptal 300 mg twice daily, trazodone 100 mg at bedtime, meclizine and albuterol. Patient has history of smoking 1 pack/day for 10 years. He smokes marijuana. No alcohol use. Review of Systems All pertinent positive and negatives review of systems mentioned in HPI. Past Medical History Past Medical History: Asthma, Hyperlipidemia, Seizure Disorder Additional Past Medical History / Comment(s): chiari malformation, AQUACULTURE DIRECTOR shunt, History of Any Multi-Drug Resistant Organisms: MRSA Date of last positivie culture/infection: 07/29/19 MDRO Source:: MRSA HEAD Past Surgical History: Orthopedic Surgery Additional Past Surgical History / Comment(s): chiari malformation, VNS procedure 3/2 Past Anesthesia/Blood Transfusion Reactions: Unable to Obtain Past Psychological History: No Psychological Hx Reported Smoking Status: Current every day smoker Past Alcohol Use History: Occasional Past Drug Use History: None Reported Medications and Allergies Home Medications Medication Instructions Recorded Confirmed Type HYDROcodone/APAP 10-325MG [[place] 1 tab PO TID 01/24/22 03/06/24 History 10-325] Albuterol Sulfate [Ventolin HFA] 2 puff INHALATION RT-Q4H PRN 01/20/23 03/06/24 History Divalproex Sodium [Depakote] 500 mg PO BID 01/20/23 03/06/24 History Divalproex [Depakote] 250 mg PO BID 01/20/23 03/06/24 History Meclizine [Antivert] 12.5 mg PO TID PRN 02/17/24 03/06/24 History OXcarbazepine [Trileptal] 300 mg PO BID 03/06/24 03/06/24 History Valproic Acid (As Sodium Salt) 750 mg PO BID 03/06/24 03/06/24 History [Valproic Acid] traZODone HCL [Desyrel] 100 mg PO HS 03/06/24 03/06/24 History Allergies Allergy/AdvReac Type Severity Reaction Status Date / Time methocarbamol [From Robaxin] Allergy Red Verified 03/06/24 08:31 Syndrome Penicillins Allergy Anaphylaxis Verified 03/06/24 08:31 levetiracetam [From Keppra] AdvReac Aggression Verified 03/06/24 08:31 Physical Examination - Vital Signs Vital Signs: Vital Signs Temp Pulse Pulse Resp BP BP Pulse Ox 03/07/24 08:23 97.3 F L 54 L 17 103/65 95 03/07/24 02:26 20 03/07/24 00:29 97.7 F 61 16 117/77 100 03/06/24 20:35 98.0 F 75 18 146/93 99 03/06/24 19:54 74 18 135/72 97 03/06/24 18:19 98 F 81 15 122/84 96 03/06/24 13:29 97.5 F L 89 16 124/95 99 Intake and Output 03/06/24 03/07/24 03/07/24 22:59 06:59 14:59 Other: Voiding Method Toilet Diaper # Voids 2 1 Weight 54.431 kg Patient is a young male, in no acute distress. Patient is alert awake fairly well oriented. He believes it is March and the year is 2023. He knows that he is in the Hospital in [place] in [place]. He knows name of the current president Mr. Weaver. Knows his date of 1995. Speech and language functions are normal. Patient can name and repeat very well. No aphasia or dysarthria. Attention, concentration is intact and fund of knowledge is probably fine. Detail cognitive function testing deferred. On cranial nerve examination, pupils are equal, round and reacting to light, visual dixon are full on confrontation, with no neglect on double simultaneous stimulation. Extraocular muscles are intact with no nystagmus. Face is symmetric, tongue protrudes to the midline. Palatal elevation and sensation normal, hearing and shoulder shrug normal, facial sensation normal. On muscle strength testing, there is no pronator drift and the strength is normal in arms and legs distally and proximally. Deep tendon reflexes are (right/left) biceps 2/2+, brachioradialis 2/2+, knees 1/1, plantars are probably upgoing bilaterally. Sensory to touch is equal with no neglect on double simultaneous stimulation. Cerebellar function showed no ataxia for [id number] testing, although patient is slightly tremulous. No dysdiadochokinesia. No ataxia for [id number] testing on either side. Tone and bulk of muscles normal. Gait deferred.. On general examination, there is no carotid bruit or murmur, S1-S2 audible. Chest is clear on consultation. Abdomen is soft nontender. No organomegaly, bowel sounds present. Peripheral pulses are present. No peripheral edema. Results - Laboratory Findings CBC and BMP: 03/06/24 13:02 03/06/24 11:16 Abnormal Lab Findings: Abnormal Labs 03/05/24 03/05/24 03/05/24 20:05 20:05 20:05 RBC 4.29 L INR 1.2 H Sodium 135 L Carbon Dioxide 20 L Glucose Total Protein 6.2 L Albumin Urine Protein Urine Mucus Urine Opiates Screen 03/06/24 03/06/24 08:08 11:16 RBC INR Sodium 134 L Carbon Dioxide 19 L Glucose 102 H Total Protein 5.8 L Albumin 3.2 L Urine Protein Trace H Urine Mucus Rare H Urine Opiates Screen Detected H Assessment and Plan Assessment: * 28-year-old male with history of seizure disorder, came with possible nicki kthrough seizure, with some mental status changes/postictal state. Mentation is now back to baseline. Patient is fairly well oriented. * Behavioral problems, with intermittent agitation, aggression. * History of Chiari malformation, status post decompressive surgery 5 years ago, followed by ventriculoperitoneal shunt placement. Patient had multiple ventriculoperitoneal shunt revision over years, because of malfunction or infection. * Seizure disorder for last 3 years, medically intractable. * VNS placement 06/17/2024. * Hyperlipidemia * History of MRSA infections * Tobacco use * Marijuana use Plan: * Patient's mentation appears at baseline. For behavioral problems, psychiatry has been consulted. Await recommendations. * Discussed with patient about EEG, but he states that he had continuous EEG monitoring performed at [facility]. We will obtain medical records from [facility]. * Patient also mentions that he was seen by neurosurgeon recently and the ventriculoperitoneal shunt is working well. * Continue current medications including Depakote 750 mg twice a day and Trileptal 300 mg twice a day. We will await records from [place]. Depakote level is 118(50-120). * Neurology will follow. Discussed with patient, his mother and also with the nursing staff. * Thank you for the consultation.
[2024-03-07] MEDS: traZODone HCL 50 MG TAB PO SCH (21:19)
[2024-03-08] MEDS: ACETAMINOPHEN TAB 325 MG TAB PO PRN (00:11)
[2024-03-08 03:49] VITALS: RESP 18
[2024-03-08 06:08] LABS: Glucose,Whole Blood 80 mg/dL (70-110)
--- NOTE | 2024-03-08 13:01 | P.PN ---
Subjective Progress Note Date: 03/08/24 Patient is a 28-year-old male with a past medical history of seizure disorder, Chiari malformation, PICKER / PACKER shunt, hyperlipidemia, asthma who presents to the ED with confusion, falls, and agitation for a few days. He was discharged from [facility] 5 days ago after a prolonged admission where he was treated for status epilepticus. Patient is a poor historian and moderately confused, patient's mother provided collateral. The patient was at his sister's and had fallen a few times but no loss of consciousness was noted. Yesterday the sister found the patient laying down and unresponsive with rapid breathing so EMS was called. Mother states the patient has been noncompliant with his medications until the last few days when she has watched him take them. She endorses increased aggression, thoughts of self-harm, and hallucinations as he is having conversations with people who were not in the room. According to the patient he does not remember falling and denies current thoughts of self-harm. He endorses chronic abdominal pain and headaches. He denies current chest pain, palpitations, shortness of breath, hematuria, hematochezia/melena. CT head was unremarkable. EKG showed normal sinus rhythm. WBCs 5.2, hemoglobin 13.4, platelets 355, INR 1.2, sodium 135, potassium 4.5, CO2 20, BUN 20, creatinine 0.87. Urinalysis positive for opiates. Valproic acid 118.8. Afebrile, normotensive, saturating well on room air. 03/07. Patient seen and examined lying in bed. He has no significant complaints today. He appears a little more alert today continues to endorse difficulty with short-term memory. He also states that while he is asleep he is having urinary incontinence. Neurology consulted. Psych consulted. 03/08. Patient seen sitting on the edge of the bed. He has no significant complaints today. He appears more alert today. Psych consulted revealed: Patient does not have decision-making capacity at this time, does not meet criteria for inpatient psych admission, medication changes include increase trazodone to 150 mg nightly, adding Invega PO 3 mg daily, continue Trileptal and Depakote as prescribed. Neurology consult will try to obtain medical records from [facility]. Review of systems: Pertinent positives and negatives as discussed in HPI, a complete review of systems was performed and all other systems are negative. Physical examination: Limited by altered mental status. Vital signs are reviewed. General: No acute distress. AO x 2. HEENT: Scabbing on nasal bridge, no tenderness. EOMI bilaterally. ACs patent. Nares patent. Lungs: Bilateral breath sounds present; no rhonchi, wheezes, or rales. Heart: Rate and rhythm are regular. S1-S2 present. No murmur/rub/gallops. Abdomen: Soft, nontender, nondistended. Bowel sounds present. Extremities: No edema present. Symmetric movement. Psych: Mildly confused, blunted affect, depressed mood. Assessment/Plan: Altered mental status Neurology consulted: Awaiting medical records from [facility] Labs unremarkable Urinalysis unremarkable Valproic acid level therapeutic History of seizures Continue Depakote Continue Trileptal COPD Continue Ventolin as needed Depression Continue trazodone 150 mg Continue Invega 3 mg Psychiatric consulted: Added Invega for mood stabilization/aggression Chronic pain Continue [place] 10 DVT prophylaxis: Mechanical Chronic conditions: Seizures, hydrocephalus, PICKER / PACKER shunt, chronic pain, COPD Objective - Vital Signs Vital signs: Vital Signs Temp 98.2 F 03/08/24 07:23 Pulse 75 03/08/24 07:23 Resp 18 03/08/24 07:23 BP 122/87 03/08/24 07:23 Pulse Ox 99 03/08/24 07:23 FiO2 Intake & Output 03/07/24 03/08/24 03/08/24 18:59 06:59 18:59 Other: Voiding Method Toilet Diaper # Voids 3 - Labs CBC & Chem 7: 03/06/24 13:02 03/06/24 11:16
--- NOTE | 2024-03-08 14:46 | P.PN ---
Progress Note - Text Progress Note Date: 03/08/24 (\\) Interval history: Patient was seen today for psychiatric follow up. Patient has been taking his medications, he was started on Invega yesterday. Nurse claims that patient has been less irritable, more cooperative. Patient was seen laying down in his room today agreeable to speak to film writer. He appears to be calmer, more cooperative. He claims that his mother is able to have him back at home upon discharge. Mingle Operator was able to speak with mother over the phone and patient and answer any questions about follow-up and [facility], mother claims that she is okay with having him back. He denies any depression at this time denies any anxiety. Denying any side effects at this time. Claims that he slept fairly, has a fair appetite. Denying any suicidal homicidal ideations intent or plan. Denying any auditory visualizations. MENTAL STATUS EXAM: General Appearance: Patient appears to be thin, has a scar over his nose, stated age is alert, more cooperative today. Patient appears to have fair hygiene and grooming wearing hospital gown with fair eye contact. Behavior: More cooperative today Speech: Patient's speech is fluent and nonpressured. Mood/Affect: Patient reports their mood is "better", affect is congruent Suicidality/Homicidality: Patient denies having any suicidal or homicidal ideation intent or plan. Perceptions: Patient denies any visual hallucinations and denies any auditory hallucinations Though content/process: Improving judgment, more future oriented today. Memory and concentration: AOX2-3, follows some commands. Judgment and insight: improving mildly IMPRESSIONS: Mood disorder unspecified History of seizure disorder PLAN: -At this time patient DOES NOT currently meet criteria for inpatient psychiatric admission. Patient is more suitable for outpatient psychiatric treatment at [facility] and he is agreeable to do so. -Would recommend the following medication changes/additions: trazodone 150 mg nightly for sleep/mood, continue with Trileptal and Depakote as prescribed. Invega p.o. 3 mg daily for mood stabilization/aggression. -studio set up worker to provide patient with outpatient mental health/psychiatry resources for appropriate follow up upon discharge. Spoke with rn case mgr afterwards and she will help patient get a [facility] appointment for outpatient mental health follow-up. -Communicated plan to patient's nurse -At this time psychiatry will sign off -Please contact with any questions.
[2024-03-08] MEDS: NICOTINE 21MG/24HR PATCH TRANSDERM SCH (15:02)
[2024-03-08 15:21] VITALS: BP 147/101; PULSE 65; TEMP 98.4
--- NOTE | 2024-03-08 15:31 | P.DS ---
Providers Date of admission: 03/05/24 22:06 Attending physician: Judie Morgan Consults: 03/06/24 11:08 Consult Physician Routine Consulting Provider: Ritesh Lima Consult Reason/Comments: altered mental status Do you want consulting provider notified?: Yes 03/06/24 11:09 Consult Physician Routine Consulting Provider: Collin Pickens Consult Reason/Comments: aggression/noncompliance Do you want consulting provider notified?: Yes Primary care physician: Michaela [facility] Course: Discharge diagnoses Altered mental status, improved History of seizures COPD Depression Chronic pain History of CHEMICAL BLENDER shunt History of VNS Hospital Course: Patient is a 28-year-old male with a past medical history of seizure disorder, Chiari malformation, CHEMICAL BLENDER shunt, hyperlipidemia, asthma who presents to the ED with confusion, falls, and agitation for a few days. He was discharged from [facility] 5 days ago after a prolonged admission where he was treated for status epilepticus. Patient is a poor historian and moderately confused, patient's mother provided collateral. The patient was at his sister's and had fallen a few times but no loss of consciousness was noted. Yesterday the sister found the patient laying down and unresponsive with rapid breathing so EMS was called. Mother states the patient has been noncompliant with his medications until the last few days when she has watched him take them. She endorses increased aggression, thoughts of self-harm, and hallucinations as he is having conversations with people who were not in the room. According to the patient he does not remember falling and denies current thoughts of self-harm. He endorses chronic abdominal pain and headaches. He denies current chest pain, palpitations, shortness of breath, hematuria, hematochezia/melena. CT head was unremarkable. EKG showed normal sinus rhythm. WBCs 5.2, hemoglobin 13.4, platelets 355, INR 1.2, sodium 135, potassium 4.5, CO2 20, BUN 20, creatinine 0.87. Urinalysis positive for opiates. Valproic acid 118.8. Afebrile, normotensive, saturating well on room air. 03/07. Patient seen and examined lying in bed. He has no significant complaints today. He appears a little more alert today continues to endorse difficulty with short-term memory. He also states that while he is asleep he is having urinary incontinence. Neurology consulted. Psych consulted. 03/08. Patient seen sitting on the edge of the bed. He has no significant complaints today. He appears more alert today. Psych consult yesterday revealed: Patient does not have decision-making capacity at this time, does not meet criteria for inpatient psych admission, medication changes include increase trazodone to 150 mg nightly, adding Invega PO 3 mg daily, continue Trileptal and Depakote as prescribed. Neurology consult will try to obtain medical records from [facility]. Patient is medically stable for discharge. Psych revealed that patient is stable for discharge to mother's house with follow-up to [facility] within a week. Neurology has cleared patient for discharge. Review of systems: Pertinent positives and negatives as discussed in HPI, a complete review of systems was performed and all other systems are negative. Physical examination: Limited by altered mental status. Vital signs are reviewed. General: No acute distress. AO x 2. HEENT: Scabbing on nasal bridge, no tenderness. EOMI bilaterally. ACs patent. Nares patent. Lungs: Bilateral breath sounds present; no rhonchi, wheezes, or rales. Heart: Rate and rhythm are regular. S1-S2 present. No murmur/rub/gallops. Abdomen: Soft, nontender, nondistended. Bowel sounds present. Extremities: No edema present. Symmetric movement. Psych: Mildly confused, blunted affect, depressed mood. Attestation I have seen and examined this patient with my resident , discussed the same with the resident/DENISSE, and agree with the dictator's assessment and plan as written Dr. Yusuf dalal Patient Condition at Discharge: Good Plan - Discharge Summary Discharge Rx Participant: No New Discharge Prescriptions: New Paliperidone [Invega] 3 mg PO DAILY 14 Days #14 tab Continue HYDROcodone/APAP 10-325MG [[place] 10-325] 1 tab PO TID Meclizine [Antivert] 12.5 mg PO TID PRN PRN Reason: Vertigo Albuterol Sulfate [Ventolin HFA] 2 puff INHALATION RT-Q4H PRN PRN Reason: Shortness Of Breath Divalproex [Depakote] 250 mg PO BID Divalproex Sodium [Depakote] 500 mg PO BID Valproic Acid (As Sodium Salt) [Valproic Acid] 750 mg PO BID OXcarbazepine [Trileptal] 300 mg PO BID Changed traZODone HCL [Desyrel] 150 mg PO HS 14 Days #14 tab Discharge Medication List HYDROcodone/APAP 10-325MG [[place] 10-325] 1 tab PO TID 01/24/22 [History] Albuterol Sulfate [Ventolin HFA] 2 puff INHALATION RT-Q4H PRN 01/20/23 [History] Divalproex Sodium [Depakote] 500 mg PO BID 01/20/23 [History] Divalproex [Depakote] 250 mg PO BID 01/20/23 [History] Meclizine [Antivert] 12.5 mg PO TID PRN 02/17/24 [History] OXcarbazepine [Trileptal] 300 mg PO BID 03/06/24 [History] Valproic Acid (As Sodium Salt) [Valproic Acid] 750 mg PO BID 03/06/24 [History] Paliperidone [Invega] 3 mg PO DAILY 14 Days #14 tab 03/08/24 [Rx] traZODone HCL [Desyrel] 150 mg PO HS 14 Days #14 tab 03/08/24 [Rx] Follow up Appointment(s)/Referral(s): Michaela Easley MD [Primary Care Provider] - 1-2 days Ritesh Lima MD [STAFF PHYSICIAN] - 1 Week [facility] [NON-STAFF] - 1 Week (Please call Access to get set up with [facility] again - [phone]. ) Discharge/Stand Alone Forms: Outpatient Counseling Discharge Disposition: HOME SELF-CARE
--- NOTE | 2024-03-08 17:19 | P.PN ---
Subjective Progress Note Date: 03/08/24 Patient was seen for a follow-up. Patient is sitting comfortably by the window. No further seizures. Patient appears calm. Informed him that we tried to call multiple times to [facility] and they just have kept on sending 18 pages of records. They have sent 5 stacks of similar records consisting of 18 pages. Unfortunately neurology consultation, neurosurgical consultation, EEG reports, none were available. Review of records: Patient was admitted on 02/17/2024, and discharged on 03/01/2024. Discharge diagnosis was pneumonitis due to inhalation of food and vomit. Acute respiratory failure with hypoxia. Epilepsy, unspecified, not intractable, with status epilepticus. Sick euthyroid syndrome. Bradycardia, fever. We received 2 different sets of medical records, but were not complete. Apparently patient was seen by neurologist, continuous EEG monitoring was done, also seen by neurosurgery. Their impression and subsequent follow-ups were not sent. Discharge summary also had very sketchy description with no details. Objective - Vital Signs Vital signs: Vital Signs Temp 98.2 F 03/08/24 07:23 Pulse 75 03/08/24 07:23 Resp 18 03/08/24 07:23 BP 122/87 03/08/24 07:23 Pulse Ox 99 03/08/24 07:23 FiO2 Intake & Output 03/07/24 03/08/24 03/08/24 18:59 06:59 18:59 Other: Voiding Method Toilet Toilet Diaper Diaper # Voids 3 - Exam Patient is alert and awake, fairly well-oriented. Muscle strength is normal. Visual dixon are full. Face symmetric. - Labs CBC & Chem 7: 03/06/24 13:02 03/06/24 11:16 Assessment and Plan Assessment: * 28-year-old male with history of seizure disorder, came with possible breakthrough seizure, with some mental status changes/postictal state. Mentation is now back to baseline. Patient is fairly well oriented. * Behavioral problems, with intermittent agitation, aggression. * History of craniotomy for Chiari malformation decompression 03/18/2019 * Repair cerebral spinal fluid leak 05/08/2019 * Shunt insertion ventriculoperitoneal 06/03/2019 * History of suboccipital craniectomy repair of cerebral spinal fluid leak 06/28/2019. * Seizure disorder for last 3 years, medically intractable. * VNS placement 06/15/2023 * Hyperlipidemia * History of MRSA infections * Tobacco use * Marijuana use Plan: * Patient's mentation appears at baseline. For behavioral problems, psychiatry has been consulted. * Discussed with patient about EEG, but he states that he had continuous EEG monitoring performed at [facility]. We will obtain medical records from [facility]. * We obtained medical records, but were partial records sent. Multiple calls made but the same records had been sent repeatedly. * Patient also mentions that he was seen by neurosurgeon recently and the ventriculoperitoneal shunt is working well. * Continue current medications including Depakote 750 mg twice a day and Trileptal 300 mg twice a day. Depakote level is 118(50-120). * Neurologically clear for discharge. Patient to follow-up with his neurologist outpatient.
== END 2024-03-08 16:22 | disposition home or self-care (01) | DRG 101 ==
LOC: EC 19:55 → 4SSUR 22:05 → OBSVTOIN 22:06 → 4SSUR 03-06 03:21
PROVIDERS: ADMIT Hospitalist; ATTEND Hospitalist
DX: G40.901 Epilepsy, unspecified, not intractable, with status epilepticus (principal); Q07.02 Arnold-Chiari syndrome with hydrocephalus; J44.89 Other specified chronic obstructive pulmonary disease; F32.A Depression, unspecified; E78.5 Hyperlipidemia, unspecified; G89.29 Other chronic pain; N39.498 Other specified urinary incontinence; E07.81 Sick-euthyroid syndrome; F17.210 Nicotine dependence, cigarettes, uncomplicated; T40.2X6A Underdosing of other opioids, initial encounter; T42.4X6A Underdosing of benzodiazepines, initial encounter; T45.0X6A Underdosing of antiallergic and antiemetic drugs, initial encounter; T42.1X6A Underdosing of iminostilbenes, initial encounter; T42.76XA Underdosing of unspecified antiepileptic and sedative-hypnotic drugs, initial encounter; R26.2 Difficulty in walking, not elsewhere classified; W19.XXXA Unspecified fall, initial encounter; Z91.128 Patient's intentional underdosing of medication regimen for other reason; Z79.891 Long term (current) use of opiate analgesic; Z98.2 Presence of cerebrospinal fluid drainage device; Z96.82 Presence of neurostimulator; Z79.899 Other long term (current) drug therapy; Z86.14 Personal history of Methicillin resistant Staphylococcus aureus infection
CPT/HCPCS: 36415; 70450; 72125; 80053; 80164; 80306; 81001; 85025; 85610; 85730; 93005; 99285